=== PATIENT | female | born 1985 | race African-American/Black ===

== ENCOUNTER 2017-10-30 13:17 | Emergency (ER) | payer OTHER, SELFPAY ==
[2017-10-30 13:20] VITALS: BP 117/74; PULSE 60; RESP 14; TEMP 37.2; O2SAT 100
--- NOTE | 2017-10-30 14:39 | ED.BACK ---
HPI - Back Pain/Injury <WALTER Rosario - Last Filed: 10/30/17 22:24> General Chief Complaint: Back Pain/Injury Stated Complaint: HURT LOWER BACK Time Seen by Provider: 10/30/17 14:39 Source: patient Mode of arrival: ambulatory Limitations: no limitations History of Present Illness HPI Narrative: Healthy 32-year-old female here for complaint of having pain into the right side of her lower back that radiates down into her lower leg. She states the pain started earlier today when she was at work and she was lifting a box with approximately 5 lb when the pain started. She denies any direct trauma to the lower back. She denies any loss of bladder or bowel control. She is ambulatory into the emergency room. She reports increased pain with movement of the lower back and palpation to the area. Rest in the area helps relieve some of the symptoms. MD Complaint: back pain Related Data Home Medications Medication Instructions Recorded Confirmed norgestimate-ethinyl estradiol 1 tab PO QDAY #0 02/03/17 [Ortho Tri-Cyclen LO (28)] Previous Rx's Medication Instructions Recorded omeprazole magnesium [Prilosec OTC] 20 mg PO QDAY #30 03/27/17 cyclobenzaprine 10 mg PO TID PRN #15 tab 10/30/17 prednisone 40 mg PO DAILY #6 tab 10/30/17 Allergies Allergy/AdvReac Type Severity Reaction Status Date / Time No Known Drug Allergies Allergy Verified 10/30/17 15:40 Review of Systems <WALTER Rosario - Last Filed: 10/30/17 22:24> Constitutional Denies chills, Denies fever(s), Denies lethargy and Denies weakness Eyes Denies change in vision, Denies eye discharge, Denies irritation and Denies loss of vision ENT Ears, Nose, Mouth, and Throat: Denies change in voice, Denies neck pain and Denies sore throat Cardiovascular Denies chest pain, Denies irregular heart rhythm, Denies lightheadedness, Denies palpitations, Denies dyspnea, Denies dyspnea on exertion and Denies orthopnea Respiratory Denies cough, Denies dyspnea, Denies dyspnea on exertion and Denies wheezing Gastrointestinal Gastrointestinal: Denies abdominal pain, Denies change in bowel habits, Denies diarrhea, Denies nausea and Denies vomiting Genitourinary Denies hematuria, Denies flank pain, Denies urinary incontinence and Denies urinary urgency Musculoskeletal Reports back pain and Denies neck pain Integumentary/Breasts Denies pruritus, Denies erythema, Denies rash and Denies wounds Neurologic Denies confusion, Denies loss of vision and Denies weakness Psychiatric Denies anxiety, Denies confusion, Denies depression, Denies homicidal ideation and Denies suicidal ideation Endocrine Denies palpitations Hematologic/Lymphatic Denies easy bruising Allergic/Immunologic Denies wheezing Exam <WALTER Rosario - Last Filed: 10/30/17 22:24> Initial Vital Signs Initial Vital Signs: Vital Signs Temperature 99.0 F 10/30/17 13:20 Pulse Rate 60 10/30/17 13:20 Respiratory Rate 14 10/30/17 13:20 Blood Pressure 117/74 10/30/17 13:20 Pulse Oximetry 100 10/30/17 13:20 Const General: cooperative and well developed Nutritional Appearance: well nourished Orientation: alert, awake, oriented x3 and not confused [facility] Mouth: oral mucosae normal and moist mucous membranes Eyes Conjunctivae: conjunctivae normal Sclera: sclerae normal Pupils: PERRL EOM: EOM intact bilaterally Resp Effort & Inspection: normal respiratory effort, able to speak in complete sentences, no respiratory distress and no use of accessory muscles Auscultation: clear to auscultation bilaterally, no rales, no rhonchi and no wheezes Cardio Rate: regular rate Rhythm: regular rhythm Heart Sounds: no click, no gallops, no murmurs and no rubs Back/Spine/Pelvis Thoracic/Lumbar Spine: paraspinal tenderness, No lumbar spinal tenderness and straight leg raise positive Other: Tenderness to the paraspinous of the lumbar spine no midline tenderness. Tenderness radiates into the right buttocks and right thigh. Distal sensation is intact. Distal range of motion is intact. Skin General: no rashes or lesions noted, No jaundice and No petechiae Neuro General: alert, oriented x3, gait normal and no focal motor deficits Speech: speech normal <Aneudy Mckeon DO - Last Filed: 11/01/17 11:02> Initial Vital Signs Initial Vital Signs: Vital Signs Temperature 99.0 F 10/30/17 13:20 Pulse Rate 60 10/30/17 13:20 Respiratory Rate 14 10/30/17 13:20 Blood Pressure 117/74 10/30/17 13:20 Pulse Oximetry 100 10/30/17 13:20 Course <WALTER Rosario - Last Filed: 10/30/17 22:24> Orders Ordered: Discontinued Medications Ceftriaxone Sodium/Dextrose (Rocephin) 2 gm in 50 mls @ 100 mls/hr IV NOW ONE Stop: 10/30/17 16:07 Last Admin: 10/30/17 16:00 Dose: Vital Signs - 8 hr 10/30/17 16:07 Temperature 98.0 F Pulse Rate 62 Respiratory Rate 16 Blood Pressure [Left Wrist] 138/82 H Pulse Oximetry 100 <Aneudy Mckeon DO - Last Filed: 11/01/17 11:02> Orders Ordered: Discontinued Medications Ceftriaxone Sodium/Dextrose (Rocephin) 2 gm in 50 mls @ 100 mls/hr IV NOW ONE Stop: 10/30/17 16:07 Last Admin: 10/30/17 16:00 Dose: Vital Signs - 8 hr 10/30/17 16:07 Temperature 98.0 F Pulse Rate 62 Respiratory Rate 16 Blood Pressure [Left Wrist] 138/82 H Pulse Oximetry 100 MDM - Back Pain/Injury <WALTER Rosario - Last Filed: 10/30/17 22:24> [facility] Narrative Medical decision making narrative: Signs and symptoms presents as lumbar strain with sciatica. She is placed on cyclobenzaprine and to help with muscle spasm. [id number] ibuprofen for discomfort and anti-inflammatory effects. She is also prescribed a short course of prednisone also for anti-inflammatory effect. Follow up with primary care provider later this week for re-evaluation. Rest area. Gentle range of motion the painful area help keep also fluids. For any worsening symptoms return to the emergency room. Discharge Plan Departure Patient Disposition: Home, Self-Care Clinical Impression: Strain of lumbar region Discharge Date/Time: 10/30/17 16:31 Interventions: ED Discharge Assessment Last Done: 10/30/17 16:30 Instructions: DI for Low Back Pain Activity Restrictions/Additional Instructions: Signs and symptoms presents as a lower back strain with sciatica. Use [id number] ibuprofen as needed for any discomfort. You are prescribed a muscle relaxer to help with muscle spasm use as directed. No driving while the muscle x-ray is a can make you drowsy. You also prescribed a short course of prednisone to help with inflammation use as directed. Follow up with primary care provider later this week for re-evaluation. Rest area. Gentle range of motion the painful area help keep also fluids. For any worsening symptoms return to the emergency room. Prescriptions: New cyclobenzaprine 10 mg tablet 10 mg PO TID PRN (Reason: muscle spasm) Qty: 15 RF: 0 prednisone 20 mg tablet 40 mg PO DAILY Qty: 6 RF: 0 No Action norgestimate-ethinyl estradiol [Ortho Tri-Cyclen LO (28)] 1 EACH tablet 1 tab PO QDAY Qty: 0 RF: 0 omeprazole magnesium [Prilosec OTC] 20 MG tablet,delayed release (DR/EC) 20 mg PO QDAY Qty: 30 RF: 0 Referrals: [facility] [Provider Group] Stand Alone Forms: Work/School Restrictions <Aneudy Mckeon DO - Last Filed: 11/01/17 11:02> Cosign ED Attending Astrid Attestation: I was immediately available in the department for consultation. Documentation has been reviewed. I agree with assessment and plan.
[2017-10-30 16:07] VITALS: BP 138/82; PULSE 62; RESP 16; TEMP 36.7; O2SAT 100
== END 2017-10-30 16:31 | disposition home or self-care (01) ==
PROVIDERS: Emergency Provider Nurse Practitioner Family
DX: M54.9 Dorsalgia, unspecified (principal)
CPT/HCPCS: 99282

== ENCOUNTER 2017-12-29 11:04 | Emergency (ER) | payer OTHER, SELFPAY ==
[2017-12-29 11:19] VITALS: BP 133/62; PULSE 80; RESP 14; TEMP 36.7; O2SAT 98; BMI 23.0
--- NOTE | 2017-12-29 12:21 | ED.SKABFB ---
HPI - Skin/Abscess/Foreign Bdy General Chief complaint: Skin/Abscess/Foreign Body Stated complaint: R SIDE LUMP UNDER ARM, INFECTED Time Seen by Provider: 12/29/17 12:05 Source: patient and family Mode of arrival: ambulatory Limitations: no limitations History of Present Illness HPI narrative: Patient presents with chief complaint of draining lump from right underarm area. Denies any fevers, nausea vomiting or diarrhea but does complain of fatigue. Does note that she was in the urgent care for concern of a breast lump on 12/15. states that she noted the right breast lump 2 days prior and that it went away 5 days after her visit. States that the lump in the right underarm area occurred shortly thereafter. States that it burst yesterday with discharge she has not done anything for it. She has not applied hot compresses taken ibuprofen and Tylenol. She denies history of diabetes, recent admission or history of MRSA. she denies current breast problems. Related Data Home Medications Medication Instructions Recorded Confirmed multivitamin 1 tab PO DAILY 12/29/17 12/29/17 Previous Rx's Medication Instructions Recorded cephalexin 500 mg PO TID #30 cap 12/29/17 Allergies Allergy/AdvReac Type Severity Reaction Status Date / Time No Known Drug Allergies Allergy Verified 12/29/17 11:23 Review of Systems Review of Systems GENERAL: Denies chills, fatigue, malaise, fever, sweats. HEENT: Denies sinus pain, ear pain, sore throat, difficulty swallowing, dizziness. RESPIRATORY: Denies dyspnea, cough, wheezing, hemoptysis, sputum. CARDIOVASCULAR: Denies chest pain, palpitations, orthopnea, edema, GASTROINTESTINAL: Denies nausea, vomiting, abdominal pain, diarrhea, constipation, melena. : Denies dysuria, frequency, incontinence, hematuria, urinary retention. MUSCULOSKELETAL: denies weakness, joint pain, or bony pain SKIN: See HPI NEUROLOGIC: Denies weakness, headache, numbness, change in speech, confusion, seizures, incoordination. PSYCHIATRIC: No concerning psychosocial issues. 12 point review of systems is negative except for those stated above [facility] Surgical History History of delivery (Acute) History of left oophorectomy (Acute) Social History Smoking Status: Former smoker Exam Narrative Exam Narrative: GENERAL: This is a well-nourished, well-developed patient, No acute distress HEAD: Atraumatic. Normocephalic. No temporal or scalp tenderness. EYES: Pupils equal round and reactive. Extraocular motions intact. No scleral icterus. No injection or drainage. ENT: Nose without bleeding, purulent drainage or septal hematoma. Throat without erythema, tonsillar hypertrophy or exudate. Uvula midline. Airway patent. NECK: Trachea midline. No JVD or lymphadenopathy. Supple, nontender, no meningeal signs. CARDIOVASCULAR: Regular rate and rhythm without murmurs, gallops, or rubs. RESPIRATORY: Clear to auscultation. Breath sounds equal bilaterally. No wheezes, rales, or rhonchi. GASTROINTESTINAL: Abdomen soft, non-tender, nondistended. No hepato-splenomegaly, or palpable masses. No guarding. EXTREMITIES: No clubbing, cyanosis, or edema. No joint tenderness, effusion, or edema noted. BACK: Nontender without deformity or crepitance. No flank tenderness. NEURO: AOx3. SKIN: 0.5 x 1 cm solitary lymph node right axilla. No erythema noted. Slight purulent drainage noted. Initial Vital Signs Initial Vital Signs: Vital Signs Temperature 98.1 F 12/29/17 11:19 Pulse Rate 80 12/29/17 11:19 Respiratory Rate 14 12/29/17 11:19 Blood Pressure 133/62 12/29/17 11:19 Pulse Oximetry 98 12/29/17 11:19 Course Orders Ordered: ED Orders 12/29/17 12:28 Wound Culture and Gram Stain Stat Vital Signs - 8 hr 12/29/17 11:19 Temperature 98.1 F Pulse Rate 80 Respiratory Rate 14 Blood Pressure 133/62 Pulse Oximetry 98 MDM - Skin/Abscess/Foreign Bdy Differential Diagnosis Likely abscess of skin or subcutaneous tissue MDM Narrative Medical decision making narrative: Patient presents with chief complaint of draining abscess. She is nontoxic and hemodynamically stable. I obtained a wound culture. Given that is already draining and small dimensions, I will refrain from incision and drainage at this point time. I did start her on Keflex. I also discussed at length that she is to follow up with primary care provider given her previous breast complaints that she might require imaging. I also discussed that lymph nodes in the axilla Can be related to breast tissue. discussed return precautions of fever, inability keep down fluids, or severe illness. Patient questions or concerns upon discharge. Discharge Plan Departure Patient Disposition: Home Clinical Impression: Abscess of skin or subcutaneous tissue Discharge Date/Time: 12/29/17 12:40 Interventions: ED Discharge Assessment Last Done: 12/29/17 12:39 Instructions: DI for Skin Abscess Activity Restrictions/Additional Instructions: Given that your abscesses is small and already draining, I do not need to cut into it today. I am starting on an antibiotic. Please use warm compresses several times a day to help facilitate drainage. Please follow-up with primary care regarding your previous breast lump. Please monitor for fever, vomiting, diarrhea. Please be re-evaluated if any of these occur. We are sending out a wound culture of the drainage from your abscess. Prescriptions: New cephalexin 500 mg capsule 500 mg PO TID Qty: 30 RF: 0 No Action multivitamin Capsule 1 tab PO DAILY RF: 0
--- NOTE | 2017-12-29 12:29 | ED_ITS ---
HPI - Skin/Abscess/Foreign Bdy General Chief complaint: Skin/Abscess/Foreign Body Stated complaint: R SIDE LUMP UNDER ARM, INFECTED Time Seen by Provider: 12/29/17 12:05 Source: patient and family Mode of arrival: ambulatory Limitations: no limitations History of Present Illness HPI narrative: Patient presents with chief complaint of draining lump from right underarm area. Denies any fevers, nausea vomiting or diarrhea but does complain of fatigue. Does note that she was in the urgent care for concern of a breast lump on 12/15. states that she noted the right breast lump 2 days prior and that it went away 5 days after her visit. States that the lump in the right underarm area occurred shortly thereafter. States that it burst yesterday with discharge she has not done anything for it. She has not applied hot compresses taken ibuprofen and Tylenol. She denies history of diabetes, recent admission or history of MRSA. she denies current breast problems. Related Data Home Medications Medication Instructions Recorded Confirmed multivitamin 1 tab PO DAILY 12/29/17 12/29/17 Previous Rx's Medication Instructions Recorded cephalexin 500 mg PO TID #30 cap 12/29/17 Allergies Allergy/AdvReac Type Severity Reaction Status Date / Time No Known Drug Allergies Allergy Verified 12/29/17 11:23 Review of Systems Review of Systems GENERAL: Denies chills, fatigue, malaise, fever, sweats. HEENT: Denies sinus pain, ear pain, sore throat, difficulty swallowing, dizziness. RESPIRATORY: Denies dyspnea, cough, wheezing, hemoptysis, sputum. CARDIOVASCULAR: Denies chest pain, palpitations, orthopnea, edema, GASTROINTESTINAL: Denies nausea, vomiting, abdominal pain, diarrhea, constipation, melena. : Denies dysuria, frequency, incontinence, hematuria, urinary retention. MUSCULOSKELETAL: denies weakness, joint pain, or bony pain SKIN: See HPI NEUROLOGIC: Denies weakness, headache, numbness, change in speech, confusion, seizures, incoordination. PSYCHIATRIC: No concerning psychosocial issues. 12 point review of systems is negative except for those stated above [facility] Surgical History History of delivery (Acute) History of left oophorectomy (Acute) Social History Smoking Status: Former smoker Exam Narrative Exam Narrative: GENERAL: This is a well-nourished, well-developed patient, No acute distress HEAD: Atraumatic. Normocephalic. No temporal or scalp tenderness. EYES: Pupils equal round and reactive. Extraocular motions intact. No scleral icterus. No injection or drainage. ENT: Nose without bleeding, purulent drainage or septal hematoma. Throat without erythema, tonsillar hypertrophy or exudate. Uvula midline. Airway patent. NECK: Trachea midline. No JVD or lymphadenopathy. Supple, nontender, no meningeal signs. CARDIOVASCULAR: Regular rate and rhythm without murmurs, gallops, or rubs. RESPIRATORY: Clear to auscultation. Breath sounds equal bilaterally. No wheezes , rales, or rhonchi. GASTROINTESTINAL: Abdomen soft, non-tender, nondistended. No hepato-splenomegaly , or palpable masses. No guarding. EXTREMITIES: No clubbing, cyanosis, or edema. No joint tenderness, effusion, or edema noted. BACK: Nontender without deformity or crepitance. No flank tenderness. NEURO: AOx3. SKIN: 0.5 x 1 cm solitary lymph node right axilla. No erythema noted. Slight purulent drainage noted. Initial Vital Signs Initial Vital Signs: Vital Signs Temperature 98.1 F 12/29/17 11:19 Pulse Rate 80 12/29/17 11:19 Respiratory Rate 14 12/29/17 11:19 Blood Pressure 133/62 12/29/17 11:19 Pulse Oximetry 98 12/29/17 11:19 Course Orders Ordered: ED Orders 12/29/17 12:28 Wound Culture and Gram Stain Stat Vital Signs - 8 hr 12/29/17 11:19 Temperature 98.1 F Pulse Rate 80 Respiratory Rate 14 Blood Pressure 133/62 Pulse Oximetry 98 MDM - Skin/Abscess/Foreign Bdy Differential Diagnosis Likely abscess of skin or subcutaneous tissue MDM Narrative Medical decision making narrative: Patient presents with chief complaint of draining abscess. She is nontoxic and hemodynamically stable. I obtained a wound culture. Given that is already draining and small dimensions, I will refrain from incision and drainage at this point time. I did start her on Keflex. I also discussed at length that she is to follow up with primary care provider given her previous breast complaints that she might require imaging. I also discussed that lymph nodes in the axilla Can be related to breast tissue. discussed return precautions of fever, inability keep down fluids, or severe illness. Patient questions or concerns upon discharge. Discharge Plan Departure Patient Disposition: Home Clinical Impression: Abscess of skin or subcutaneous tissue Discharge Date/Time: 12/29/17 12:40 Interventions: ED Discharge Assessment Last Done: 12/29/17 12:39 Instructions: DI for Skin Abscess Activity Restrictions/Additional Instructions: Given that your abscesses is small and already draining, I do not need to cut into it today. I am starting on an antibiotic. Please use warm compresses several times a day to help facilitate drainage. Please follow-up with primary care regarding your previous breast lump. Please monitor for fever, vomiting , diarrhea. Please be re-evaluated if any of these occur. We are sending out a wound culture of the drainage from your abscess. Prescriptions: New cephalexin 500 mg capsule 500 mg PO TID Qty: 30 RF: 0 No Action multivitamin Capsule 1 tab PO DAILY RF: 0
== END 2017-12-29 12:40 | disposition home or self-care (01) ==
PROVIDERS: Emergency Provider Nurse Practitioner Family
DX: L02.411 Cutaneous abscess of right axilla (principal)
CPT/HCPCS: 87070; 87077; 87147; 87186; 87205; 99282; 99283

== ENCOUNTER 2018-03-06 12:28 | Emergency (ER) | payer OTHER, SELFPAY ==
[2018-03-06 12:33] VITALS: BP 134/72; PULSE 70; RESP 18; TEMP 36.8; O2SAT 100
--- NOTE | 2018-03-06 14:38 | DI.RAD.S_ITS ---
PROCEDURE: XR FINGER LT MIN 2V INDICATIONS: injury TECHNIQUE: AP hand, 2 views of the left finger(s) acquired. COMPARISON: None. FINDINGS: Bones: No fractures or dislocations. No suspicious bony lesions. Soft tissues: No suspicious soft tissue calcifications. IMPRESSION: No fracture. If the patient's symptoms do not improve recommend followup radiographs in 10 days to assess for healing sclerosis/occult injury. Dictated by: Jan Huff M.D. on 03/06/2018 at 15:22 Approved by: Jan Huff M.D. on 03/06/2018 at 15:24
--- NOTE | 2018-03-06 14:53 | ED.UPPEXIN ---
HPI - Extremity Injury (Upper) <Francisca Arriaga PA-C - Last Filed: 03/06/18 18:41> General Chief Complaint: Extremity Injury, Upper Stated Complaint: Hurt L thumb at work Time Seen by Provider: 03/06/18 14:43 Source: patient Mode of arrival: ambulatory Limitations: no limitations History of Present Illness HPI narrative: This healthy 32-year-old female injured her left thumb earlier today. She is right-handed. She states that she was pushing a cage and it hit something in the back, bounced back against her thumb and hyperextended it. She indicates that this was at the MCP joint. She states that she heard kind of a crunching sound. She states that she had some pain but tried to continue working and pain has persisted. She states that she can't bend it all the way, which she feels like is a combination of pain and stiffness or weakness. She denies paresthesia. She denies any other injury. Related Data Home Medications Medication Instructions Recorded Confirmed multivitamin 1 tab PO DAILY 12/29/17 03/06/18 Allergies Allergy/AdvReac Type Severity Reaction Status Date / Time No Known Drug Allergies Allergy Verified 12/29/17 11:23 Review of Systems <Francisca Arriaga PA-C - Last Filed: 03/06/18 18:41> Review of Systems All systems reviewed & are unremarkable except as noted in HPI and below Exam <Francisca Arriaga PA-C - Last Filed: 03/06/18 18:41> Narrative Exam Narrative: GENERAL APPEARANCE: Patient sitting comfortably, in no distress. LUNGS: Clear to auscultation bilaterally. HEART: Rate and rhythm regular without murmur, normal S1 and S2, no S3 or S4. MUSCULOSKELETAL: Left thumb there is no effusion. She is tender at the MCP joint, no tenderness elsewhere over the left thumb, fingers, hand or wrist. She has full aROM of all joints except for the thumb, where she has reduced flexion/opposition at the MCP joint with tenderness. Strength appears intact against resistance in all tamayo NEUROVASCULAR: Left hand fingers are warm and pink, radial and ulnar pulses intact, sensation grossly intact Initial Vital Signs Initial Vital Signs: Vital Signs Temperature 98.3 F 03/06/18 12:33 Pulse Rate 70 03/06/18 12:33 Respiratory Rate 18 03/06/18 12:33 Blood Pressure 134/72 03/06/18 12:33 Pulse Oximetry 100 03/06/18 12:33 <DO Sara Dunham Last Filed: 03/06/18 19:05> Initial Vital Signs Initial Vital Signs: Vital Signs Temperature 98.3 F 03/06/18 12:33 Pulse Rate 70 03/06/18 12:33 Respiratory Rate 18 03/06/18 12:33 Blood Pressure 134/72 03/06/18 12:33 Pulse Oximetry 100 03/06/18 12:33 Course <Francisca Arriaga PA-C - Last Filed: 03/06/18 18:41> Orders Ordered: ED Orders 03/06/18 14:38 XR finger LT min 2V Stat Discontinued Medications Ibuprofen (Advil) 800 mg PO NOW ONE Stop: 03/06/18 15:02 Last Admin: 03/06/18 15:11 Dose: 800 mg Vital Signs - 8 hr 03/06/18 12:33 03/06/18 16:02 Temperature 98.3 F Pulse Rate 70 57 L Respiratory Rate 18 16 Blood Pressure 134/72 Blood Pressure [Right Arm] 130/74 Pulse Oximetry 100 100 <DO Sara Dunham Last Filed: 03/06/18 19:05> Orders Ordered: ED Orders 03/06/18 14:38 XR finger LT min 2V Stat Discontinued Medications Ibuprofen (Advil) 800 mg PO NOW ONE Stop: 03/06/18 15:02 Last Admin: 03/06/18 15:11 Dose: 800 mg Vital Signs - 8 hr 03/06/18 12:33 03/06/18 16:02 Temperature 98.3 F Pulse Rate 70 57 L Respiratory Rate 18 16 Blood Pressure 134/72 Blood Pressure [Right Arm] 130/74 Pulse Oximetry 100 100 MDM - Extremity Injury (Upper) <YVROSE Linares Last Filed: 03/06/18 18:41> Imaging Data thumb: Radiologist's impression: XRay Report Signed Patient: Roxana Mir MR#: [id number] : 1985 Acct:[id number] Age/Sex: 32 / F Date of Service: 03/06/18 Loc: ED Accession Number: [id number] Procedure: XR finger LT min 2V Ordering Provider: Kaylin Garay D.O. PROCEDURE: XR FINGER LT MIN 2V INDICATIONS: injury TECHNIQUE: AP hand, 2 views of the left finger(s) acquired. COMPARISON: None. FINDINGS: Bones: No fractures or dislocations. No suspicious bony lesions. Soft tissues: No suspicious soft tissue calcifications. IMPRESSION: No fracture. If the patient's symptoms do not improve recommend followup radiographs in 10 days to assess for healing sclerosis/occult injury. Dictated by: Jan Huff M.D. on 03/06/2018 at 15:22 Approved by: Jan Huff M.D. on 03/06/2018 at 15:24 Discharge Plan Departure Patient Disposition: Home Clinical Impression: Left thumb sprain Discharge Date/Time: 03/06/18 16:23 Interventions: ED Discharge Assessment Last Done: 03/06/18 16:22 Instructions: DI for Finger Sprain Activity Restrictions/Additional Instructions: Please keep your thumb in the splint at all times (10/10) for protection and so that the strained tissues can rest and heal. Take ibuprofen every 8 hr. There was no fracture seen on her x-ray today, and your strength seems to be intact but it is difficult to fully assess your range of motion due to the pain. Please call Orthopedics today and let them know you were seen in the emergency room and advised to follow up for recheck on this as we want to make sure your range of motion and strength are normal. Return if you have any acutely worsening symptoms. You can work as long as you wear the splint to avoid stress on your thumb. Prescriptions: No Action multivitamin Capsule 1 tab PO DAILY RF: 0 Referrals: Thien Dye MD [Physician] - Stand Alone Forms: Work Release Note <Kaylin Garay DO - Last Filed: 03/06/18 19:05> Cosign ED Attending Chuyature Attestation: I was immediately available in the department for consultation. Documentation has been reviewed. I agree with assessment and plan.
[2018-03-06] MEDS: IBUPROFEN 400 MG TABLET 800 MG PO (15:11)
[2018-03-06 16:02] VITALS: BP 130/74; PULSE 57; RESP 16; O2SAT 100
== END 2018-03-06 16:23 | disposition home or self-care (01) ==
PROVIDERS: Emergency Provider Internal Medicine
DX: S63.602A Unspecified sprain of left thumb, initial encounter (principal); W23.0XXA Caught, crushed, jammed, or pinched between moving objects, initial encounter
CPT/HCPCS: 29280; 73140; 99283

== ENCOUNTER → 2018-03-29 09:34 | Outpatient (CLI) | payer OTHER, SELFPAY ==
[2018-03-29 10:00] LABS: Add Manual Diff / Slide Review NO; Eosinophils Percent Auto 5.8 % (2-4); Hematocrit 35.9 % (36-46); Hemoglobin 12.2 g/dL (12.0-16.0); Lymphocytes Percent Auto 47.9 % (25-40); Mean Corpuscular Hemoglobin 30.5 PG (26-34); Mean Corpuscular Volume 89.7 fL (80-100); Monocytes Percent Auto 11.3 % (3-14); Neutrophils Absolute Auto 1600 /uL (1500-7000); Platelet Count 242 X10^3/uL (150-400); Red Blood Cell Count 4.01 X10^6/uL (4.0-5.2); Red Cell Distribution Width 12.8 % (11.6-14.8); White Blood Cell Count 4.7 X10^3/uL (4.5-11.0)
[2018-03-29 10:07] LABS: Alanine Aminotransferase 26 IU/L (9-52); Albumin 4.1 g/dL (3.5-5.0); Albumin Globulin Ratio 1.3 (1.0-2.8); Alkaline Phosphatase 48 U/L (38-126); Aspartate Aminotransferase 18 IU/L (14-36); BUN Creatinine Ratio 17.1 (6-22); Bilirubin Total 0.5 mg/dL (0.2-1.3); Blood Urea Nitrogen 12 mg/dL (7-17); Calcium 9.5 mg/dL (8.4-10.2); Carbon Dioxide 28 mmol/L (22-32); Chloride 104 mmol/L (98-107); Cholesterol 181 mg/dL (140-199); Estimated Glomerular Filt Rate > 60.0 mL/min (>60); Globulin 3.1 g/dL (1.7-4.1); Glucose 86 mg/dL (70-100); HDL Cholesterol 62 mg/dL (40-60); HEMOLYSIS < 15 (0-50); LDL Cholesterol Calculated 107 mg/dL (<100); Sodium 140 mmol/L (137-145); Total Protein 7.2 g/dL (6.3-8.2); Triglycerides 60 mg/dL (35-150)
[2018-03-29 10:33] LABS: HEMOLYSIS < 15 (0-50); Iron 95 ug/dL (37-170)
[2018-03-29 10:43] LABS: Percent Iron Saturation 39 % (15-50); Total Iron Binding Capacity 241 ug/dL (265-497); Transferrin 191 mg/dL (206-381)
[2018-03-29 10:51] LABS: Appearance Urine UA CLEAR; Bilirubin Urine UA NEGATIVE (NEGATIVE); Color Urine UA YELLOW; Glucose Urine UA NEGATIVE (Negative); Ketones Urine UA NEGATIVE (NEGATIVE); Leukocyte Esterase Urine UA NEGATIVE (NEGATIVE); Nitrite Urine UA NEGATIVE (Negative); Occult Blood Urine UA NEGATIVE (Negative); Protein Urine UA NEGATIVE (Negative); Urobilinogen Urine UA 0.2 E.U./dL (0.2); pH Urine UA 7.5 (4.5-8.0)
[2018-03-29 11:04] LABS: Thyroid Stimulating Hormone 0.49 uIU/mL (0.47-4.68)
[2018-04-02 21:28] LABS: Hematocrit 35.9 % (35.0-45.0); MCV 92.8 fL (80.0-100.0); RBC Total Count 3.87 Million/uL (3.80-5.10); RDW 12.6 % (11.0-15.0)
== END ==
PROVIDERS: PCP Family Medicine; Visit Provider Family Medicine
DX: N93.8 Other specified abnormal uterine and vaginal bleeding (principal); Z13.220 Encounter for screening for lipoid disorders; Z13.29 Encounter for screening for other suspected endocrine disorder; Z86.2 Personal history of diseases of the blood and blood-forming organs and certain disorders involving the immune mechanism
CPT/HCPCS: 36415; 80053; 80061; 81003; 83021; 83540; 83550; 84443; 85014; 85018; 85025; 85041

== ENCOUNTER → 2018-04-10 11:39 | Outpatient (CLI) | payer OTHER, SELFPAY ==
--- NOTE | 2018-04-10 11:40 | DI.US.S_ITS ---
PROCEDURE: US PELVIC COMPLETE INDICATIONS: DYSFUNCTIONAL UTERINE BLEEDING TECHNIQUE: Real-time scanning was performed of the pelvic organs, with image documentation. Additional endovaginal scanning was necessary due to incomplete visualization of the adnexal and endometrial structures by transabdominal scanning. COMPARISON: None. FINDINGS: Transabdominal scanning: Limited scanning through the kidneys shows no hydronephrosis. No pathologic free abdominal or pelvic fluid. Endovaginal scanning: Uterus: Uterus is normal in size at 12.7 x 5.8 x 7.4 cm. The endometrium is not well defined and there is mild increase endometrial vascularity. Ovaries: Simple cyst associated with the right ovary measuring 4.5 x 2.3 x 3.7 cm. Left ovary is normal. IMPRESSION: 1. Ill-defined endometrial complex with increased vascularity. Adenomyosis cannot be excluded. If indicated pre and post contrast gynecologic MRI could be performed for further assessment. 2. Simple cyst involving the right ovary measuring up to 4.5 cm. Short-term followup pelvic ultrasound recommended. Dictated by: Filiberto MONREAL Interpreted: Munir Padilla MD on 04/10/2018 at 14:13 Approved by: Munir Padilla M.D. on 04/10/2018 at 17:09
== END ==
PROVIDERS: PCP Family Medicine; Visit Provider Family Medicine
DX: N93.8 Other specified abnormal uterine and vaginal bleeding (principal); N83.291 Other ovarian cyst, right side
CPT/HCPCS: 76830; 76856

== ENCOUNTER 2018-06-25 08:31 | Inpatient (IN) | payer OTHER, SELFPAY ==
[2018-06-13 08:29] VITALS: BMI 23.0
[2018-06-25] VITALS (14 sets, daily range): BP systolic 98–135; BP diastolic 58–82; PULSE 61–81; RESP 8–20; TEMP 36.2–36.7; O2SAT 95–100; BMI 22.3
--- NOTE | 2018-06-25 | PATH_ITS ---
[facility] Accession Number: [id number] . 01 Material submitted: . PART A: uterus - UTERUS PART B: appendix - APPENDIX . 02 Diagnosis: A. Uterus Without Cervix (Supracervical Hysterectomy) With Bilateral Fallopian Tubes: Adenomyosis, uterus. Focal endometriosis, right fallopian tube. Minimally proliferative endometrium, negative for atypia. . B. Appendix: No significant pathologic change. MRV/06/27/2018 . 02 Electronically signed: . Kyle Tejeda MD, Pathologist NPI- [id number] . 01 Gross description: . A. Received in formalin, labeled with the patient's name and uterus, is a 155 gram supracervical hysterectomy specimen measuring 5.8 cm anterior to posterior, 8.3 cm fundus to lower uterine segment, and 6.4 cm cornu to cornu. A 2.6 cm in length by 0.5 cm in diameter portion of bilateral fallopian tubes are present. The serosa is smooth. The endometrial canal measures 4.1 cm in length by 0.9 cm in width, and is covered with white-brown endometrium measuring 0.1 cm in thickness. No intramural or subserosal nodules are identified. Corporate Planning Manager sections are submitted as follows: A1-anterior lower uterine segment; A2-posterior lower uterine segment; A3-anterior endomyometrium; A4-posterior endomyometrium; A5-right fallopian tube; A6-left fallopian tube. B. Received in formalin, labeled with the patient's name and appendix, is a 5.1 cm in length by 0.6 cm in diameter intact foss-brown appendix. The attached foss-brown mesoappendix measures 4.0 x 1.6 x 0.5 cm. The serosa is smooth and no perforation is noted. Sectioning reveals a lumen measuring 0.3 cm in greatest dimension with foss-brown mucosa. No fecalith is identified within the lumen. The resection margin is inked black. Corporate Planning Manager sections are submitted as follows: B1-longitudinal section of tip, cross-section of proximal margin, and additional cross sections. (CHARITY:[id number]) /MRV . 02 Pathologist provided ICD-10: N80.0 . 02 CPT . 481973, 499189 Performed at: 01 [facility] [address] [address], [place], [place] [id number] MD Alvaro Elam MD Phone: [phone] Performed at: 02 [facility] [address] [place] [id number] MD Sarahi Wallace MD Phone: [phone]
[2018-06-25] MEDS: LACTATED RINGERS 1,000 ML 42 ML IV ×2 (08:43→12:56)
[2018-06-25] MEDS: CEFAZOLIN 2 GM/100 ML FROZ.PIGGY IV (11:39)
--- NOTE | 2018-06-25 12:22 | SUR.OPER ---
Lithotomy on padded OR bed. Eighty Four Pad Positioner under torso. Head on pillow, arms padded and tucked at sides. Legs secured in padded yellow fins stirrups.
[2018-06-25] MEDS: BUPIVACAINE 0.5% W/ EPI (PF) VIAL 30 ML INJ (12:57)
[2018-06-25] MEDS: ROPIVACAINE 0.2% PF 2 MG/ML 10ML AMP 20 ML INJ (13:03)
[2018-06-25] MEDS: SODIUM CHLORIDE 0.9% 9 ML, TRIAMCINOLONE 10 MG INJ ×2 (13:33→13:54)
[2018-06-25] MEDS: HYDROMORPHONE 2 MG INJ 0.5 MG IV ×4 (14:18→14:45)
--- NOTE | 2018-06-25 14:49 | SUR.PHASEI ---
Attempted to reach Dr. Palafox to discuss blood oozing from dressing. not available. Message left with Hedy.
--- NOTE | 2018-06-25 14:57 | SUR.PHASEI ---
No additional drainage noted to LLQ
--- NOTE | 2018-06-25 15:12 | PM.PREOP ---
Pre-operative Note Interval Note History & Physical reviewed/Exam performed by Physician: Yes Changes to H&P: No
--- NOTE | 2018-06-25 15:23 | SUR.PHASEI ---
Dr. Palafox shown oozing from [facility] jared mackenzie applied per Dr. Palafox, no need to change aquacel as long as upper border is cdi. Report called to Faye.
[2018-06-25] MEDS: METOCLOPRAMIDE 10 MG/2 ML INJ IV (15:50)
[2018-06-25] MEDS: LACTATED RINGERS 1,000 ML 100 ML IV (15:50)
--- NOTE | 2018-06-25 15:56 | SUR.PHASEI ---
Pt transferred to the floor. VS stable. Drsgs and pad checked with RN, unchanged. IV saline locked. Belongings bag with patient.
--- NOTE | 2018-06-25 17:03 | PM.OP.1 ---
Operative Date/Time/Diagnoses Date of procedure: 06/25/18 Time of procedure: 13:03 Pre-op diagnosis: Right lower quadrant adhesions Appendiceal fecalith Post-op diagnosis: same Procedure & Clinicians Procedure: Lysis of adhesions Appendectomy Surgeon: Debby Holloway [employer] Laboratory Technician: Enedina Palafox Anesthesia Type: General Operative Notes Findings: 1. Right lower quadrant adhesions involving the right colon and omentum. Affectively causing decreased diameter of the ascending colon 2. Appendiceal fecalith without gross evidence of appendicitis Closure Type: primary Specimen(s): other (Appendix) Estimated Blood Loss (mL): 5 Procedure in detail: Mrs. Mir is a pleasant 33-year-old lady who presented to the operating room today to undergo a supracervical hysterectomy. This was completed by Dr. Palafox and Dr. Mancilla. At the time the operation, it was noted that the patient had significant right lower quadrant adhesions. I was called into the operation to address this issue. At the time I entered the operating room, the patient was anesthetized on the operating room table. A Pfannenstiel incision remained open in the lower abdomen. Dr. Palaofx and I proceeded as follows. We began by examining the right pericolic gutter and right colon. It was noted that she had a few adhesions involving the omentum and the right lateral abdominal wall that effectively narrowed the diameter of the mid right colon. These were lysed under direct vision using Metzenbaum scissors. examination of the appendix revealed a fairly long fecalith in the center of the organ. Due to the presence of this fecalith, we elected to perform an appendectomy. This was done by dividing the mesoappendix using the LigaSure device. a 55 mm FRED stapling device was then used to liberate the appendix from its attachment to the cecum. The existing staple line was then oversewn with interrupted Vicryl suture. the wound was checked for hemostasis and irrigated with warm saline solution. At this time, my part and the procedure was concluded. I exited the room and Dr. Palafox completed the procedure. Please see Dr. Palafox operative report for information regarding all other portions of the operation. Complications: none Condition: stable Disposition: PACU Plan for aftercare: The patient will be admitted to the gynecology service for continued care and convalescence.
[2018-06-25] MEDS: KETOROLAC 30 MG/ML VIAL IV ×2 (18:42→23:30)
--- NOTE | 2018-06-25 19:08 | PC.ADMIT ---
Addendum entered by Sarahi Castaneda R.N. 06/25/18 21:20: checked on pt around 2044- pt reports feeling and doing much better, at bedside. will continue to monitor. Original Note: Addendum entered by Sarhai Castaneda R.N. 06/25/18 20:17: 3x minimal blood spots to moisés pad. not much more from when she arrived from PACU. changed. will continue to monitor. abd soft but tender. Original Note: Addendum entered by Sarahi Castaneda R.N. 06/25/18 20:14: 2010- pt called. stated she felt a very sharp pain to vaginal area then started sweating everywhere. and pt was very worried. vitals 86/50 hr 70, O2-99% on room air, denied sob. stated that when the pain came it took her breath away. laid head of bed down. pt bp normalized at 110/75. Pt hr 72. adjusted brown catheter and pt stated that she felt the sharp pain again. positioned catheter in a different spot. pt stated she felt much better. vss. given prn pain med and scheduled. will continue to monitor. at bedside. Original Note: Admission Note: 1529- arrived to unit. mild nausea. given prns. oriented to room and hospital procedures. given call hernandez. water, snacks. dinner up and pt tolerating. fluids started. many questions answered. pt having small amount of bloody drainage to left lower part of aquacel. able to absorb with gauze. top barrier intact. vss. at bedside. belongings and call light within reach. two small spots to lower end of dsg. 3x lap sites to perinaval. will continue to monitor. brown patent.
[2018-06-25] MEDS: DOCUSATE 250 MG CAPSULE PO (20:12)
[2018-06-25] MEDS: OXYCODONE/ACETAMINOPHEN 5/325 TABLET 2 TAB PO (20:12)
--- NOTE | 2018-06-25 23:54 | PC.NURSE ---
Addendum entered by Dannielle Stein R.N. 06/26/18 05:56: States she was able to sleep a solid 3 hours during this shift. Pain severity currently 4/10 and medicated with scheduled Toradol. Still not passing any flatus. BP remains low but is asymptomatic. Ambulated short distance in plata and back to room and now sitting up in chair. Given broth and tea per her request. 575cc UOP this shift. Original Note: Addendum entered by Dannielle Stein R.N. 06/26/18 00:24: States pain is now down to 3/10 but still wants 2 tabs of Percocet; medicated as requested. Original Note: Patient is alert and oriented. Breath sounds CTA with RA sat of 98%. HRR with low BP of 98/58; reported earlier near syncopal episode when gotten out of bed on evening shift. Denies nausea. BT very hypoactive; abdomen distended and tender. Denies flatus. Lap dressings are CDI. Aquacel dressing to low abdomen intact with spots of dark drainage noted. States pain is 6/10; medicated with scheduled Toradol and given warm blanket for comfort; due for Percocet at 0010. Is able to turn self in bed. Reports weakness when up earlier. Refusing SCD's. Indwelling catheter is patent. Fall risk score is moderate; patient calls for assistance appropriately and spouse rooming in.
[2018-06-26] MEDS: OXYCODONE/ACETAMINOPHEN 5/325 TABLET 2 TAB PO ×4 (00:22→21:49)
[2018-06-26] MEDS: LACTATED RINGERS 1,000 ML 100 ML IV (00:24)
[2018-06-26 03:49] VITALS: BP 98/54; PULSE 65; RESP 22; TEMP 36.6; O2SAT 99
[2018-06-26] MEDS: KETOROLAC 30 MG/ML VIAL IV ×4 (05:42→23:44)
[2018-06-26 06:27] LABS: Add Manual Diff / Slide Review NO; Basophils Absolute Auto 0 /uL (0-100); Basophils Percent Auto 0.2 % (0-2); Eosinophils Absolute Auto 0 /uL (0-450); Hematocrit 26.6 % (36-46); Hemoglobin 9.2 g/dL (12.0-16.0); Lymphocytes Absolute Auto 1500 /uL (1100-4500); Lymphocytes Percent Auto 12.6 % (25-40); Mean Corpuscular HGB Conc 34.7 % (30-36); Mean Corpuscular Hemoglobin 30.8 PG (26-34); Mean Corpuscular Volume 88.8 fL (80-100); Monocytes Absolute Auto 1000 /uL (0-900); Monocytes Percent Auto 8.6 % (3-14); Neutrophils Absolute Auto 9100 /uL (1500-7000); Neutrophils Percent Auto 78.6 % (50-75); Platelet Count 223 X10^3/uL (150-400); Red Cell Distribution Width 12.4 % (11.6-14.8); White Blood Cell Count 11.6 X10^3/uL (4.5-11.0)
[2018-06-26 07:30] VITALS: BP 107/49; PULSE 75; RESP 16; TEMP 37; O2SAT 100
[2018-06-26] MEDS: DOCUSATE 250 MG CAPSULE PO ×2 (08:00→19:48)
--- NOTE | 2018-06-26 08:17 | CM.DANOTE ---
DCP: Case received, EMR reviewed and checked on patient briefly, for she was resting. DCP template completed with information currently available. Patient is a 33 year old female who admitted yesterday morning to the care of the surgical team. PCP: Torie Bustillo. Payer: confirmed: [facility] Patient came to hospital originally for a Supracervical Hysterectomy. Patient had also been complaining of right quadrant pain. She was noted to have right lower quadrant adhesions involving the colon, where lysis of adhesions was performed. Surgeon was consulted, and she also had Appendectomy. Checked on patient, she had been resting, pleasant. She lives in [place] with her spouse, Kt. She is employed at [employer]. P: Patient should be able to go home when she is medically stable. Celeste Choe RN/Dietary Clerk
--- NOTE | 2018-06-26 11:05 | PC.NURSE ---
Day Shift- Abd lap sites X3, gauze and tegaderm dressing CDI. Aquacel horizontal dressing intact with 3 small spots of bloody shadowing. Ernestina-pad has small amount of bloody drainage. Urinary catheter removed at 1005 with out difficulty per Dr. Palafox order. Post removal expectations discussed. Measuring hat in toilet for when pt voids. Pain controlled with prn Percocet, last given at 0740 for 4-5/10 aching and bloating. Upon reassessment, pain 2/10. Now passing flatus, pt wants to ambulate in halls after lunch.
[2018-06-26] MEDS: SODIUM CHLORIDE 0.9% FLUSH 10 ML IV ×3 (11:35→23:45)
[2018-06-26 12:00] VITALS: BP 129/79; PULSE 88; RESP 16; TEMP 36.9; O2SAT 100
[2018-06-26 15:57] VITALS: BP 114/65; PULSE 88; RESP 19; TEMP 36.6; O2SAT 100
--- NOTE | 2018-06-26 18:42 | P.OP_ITS ---
Operative Date/Time/Diagnoses Date of procedure: 06/25/18 Time of procedure: 14:00 Pre-op diagnosis: Dysmenorrhea Menorrhagia Pelvic pain Post-op diagnosis: same Procedure: Procedures Operation Date: 06/25/18 11:15 Actual Procedures Side Surgeon xu DIALLO converted to open; lysis of adhesions; Scar revision Enedina Palafox MD s Open Appendectomy Debby Holloway MD Indications: Dysmenorrhea Menorrhagia Pelvic pain Surgeon: Enedina Palafox Well Treatment Offsider: Nelson Mancilla Anesthesia Type: General Operative Notes Findings: 8 week size uterus Small portions of proximal tubes connected to the uterus otherwise no tubes visible Normal ovaries bilaterally Omental to bladder and anterior uterine adhesions Right lower quadrant adhesions of colon to right adnexa and sidewall Dense Bladder to uterine adhesions Closure Type: primary Specimen(s): uterus Applied: catheter Estimated blood loss (mL): 200 Blood products transfused: none Procedure in detail: The patient was taken to the operating room where she was placed in the dorsal supine position. After adequate general endotracheal anesthesia was achieved, she was placed in the dorsal lithotomy position, and prepped and draped in the usual sterile fashion. a bivalve speculum was placed into the vagina and the anterior lip of the cervix grasped with a single-tooth tenaculum. The cervical os was sequentially dilated until the Zumi uterine manipulator could pass easily into the endometrial cavity. The single-tooth tenaculum was removed from the anterior lip of the cervix. The bivalve speculum was removed from the vagina. Attention was then turned to the abdomen where 6 cc of 0.5% Marcaine with epinephrine were injected in the umbilical fold. A 5 mm incision was made. The Veress needle was placed into the peritoneal cavity, and its placement confirmed by aspiration drop test. The abdominal cavity was insufflated with 2.8 L of CO2. The Veress needle was removed, and a 5 mm trocar was placed without difficulty. Initial inspection of the abdomen and pelvis revealed the findings noted above. 2 other incisions were made midway between the pubic symphysis and umbilicus with care to avoid the adhesions. 2 5 mm trocars were placed under direct visualization. the right cornua of the uterus with a small portion of tube a visible was grasped with an atraumatic grasper. Using the PlasmaKinetic with settings at 40 w the utero-ovarian vessels, round ligament, and broad ligament were cauterized and cut with the PlasmaKinetic. Due to dense bladder to uterine adhesions attention was then turned to the left side where the left cornua with small portion of tube was grasped with an atraumatic grasper. The utero-ovarian, round ligament, and broad ligament were cauterized and cut all the way down to the level of the uterine arteries. An attempt was made to take the bladder down off of lower uterine segment and cervix and there were dense adhesions. Omental to uterine adhesions were cauterized and cut with the PlasmaKinetic. Due to the dense adhesions of the bladder to the lower uterine segment, a decision was made to proceed with an open procedure. the instruments were removed from the abdomen. The CO2 was allowed to escape. An elliptical incision was made around the previous Pfannenstiel incision including the dense keloid scar. This was carried through to the underlying layer of fascia. The fascia was nicked in the midline and the incision extended bilaterally with the Joaquin scissors. The superior aspect of the fascial incision was grasped with the Shannan clamps, elevated, and the underlying rectus muscles were dissected off sharply and bluntly. Attention was then turned to the inferior aspect of this incision which in a similar fashion was grasped with the Shannan clamps, elevated and the underlying rectus muscles dissected off sharply and bluntly. The rectus muscles were in the midline. The peritoneum was identified, grasped between 2 hemostats, and entered sharply with the Metzenbaum scissors. This incision was extended superiorly and inferiorly with good visualization of the bladder. The O'Osmin O'Guo retractor was placed into the incision and the bowel packed away with moist lap sponges. Care was taken to avoid the bowel in the right lower quadrant. The uterus was grasped with a 4 tooth tenaculum. Using the Metzenbaum scissors the bladder was taken down off of the lower uterine segment and cervix and then with a moistened sponge stick. The uterine arteries were clamped, transected, and suture ligated bilaterally. the Zumi uterine manipulator was removed from the uterus. The uterus was amputated from the cervix using the Bovie. The endocervical canal was extensively cauterized with the PlasmaKinetic. The cervix was closed with a series of simple interrupted sutures using 0 Vicryl. Hemostasis was achieved. The pelvis was copiously irrigated with warm normal saline. There was no bleeding noted. An intraoperative consult was obtained with the general surgeon, Dr. Emily Holloway. She took down adhesions in the right lower quadrant including the colon. Upon examining the appendix, there was a fecalith present. A decision was made to proceed with an appendectomy. This is dictated as a separate report by Dr. Emily Holloway. The pelvis was again copiously irrigated with warm normal saline. There was no bleeding noted. the lap sponges were removed from the abdomen. The O'Osmin O'Guo retractor was removed from the abdomen. The peritoneum was closed with 2 0 Vicryl in a running fashion. The fascia was reapproximated with 0 Vicryl in a running fashion. Hemostasis was achieved in the subcutaneous layer using the Bovie and irrigated with warm normal saline. 5 simple interrupted sutures were placed in the subcutaneous layer to reapproximate. The skin was closed with 4 0 undyed Vicryl in a subcuticular fashion. a solution of 10 mg of Kenalog in 10 cc of normal saline was injected along the new incision with 1 milligram/centimeter of tissue. Also the other keloid scars in the area were injected with the same solution. The laparoscopy incisions were closed with 4 0 undyed Vicryl in a subcuticular fashion. Steri-Strips, 2 x 2, and op site were placed over the laparoscopy incisions. An Aquacel dressing was placed over the Pfannenstiel incision. Sponge, lap, and instrument counts were correct x2. The patient tolerated the procedure well, and was taken to PACU in stable condition. Complications: none Post-operative Condition: stable Disposition: PACU Plan for aftercare: To acute care after recovery
--- NOTE | 2018-06-26 18:44 | P.PN_ITS ---
Subjective Date Patient Seen: 06/26/18 Time Patient Seen: 18:42 Interval history: Patient is a 33-year-old postop day # 1 status post open supracervical hysterectomy, lysis of adhesions and appendectomy. The You catheter was removed this morning and she has been able to void without the catheter. She is tolerating a regular diet. No nausea or vomiting. Pain well controlled. She has ambulated without assistance. Exam Vital Signs (past 8 hours): - 06/26/18 12:00 06/26/18 15:57 Temperature 98.4 F 97.8 F Pulse Rate 88 88 Respiratory Rate 16 19 Blood Pressure 129/79 114/65 Pulse Oximetry 100 100 Oxygen Delivery Method Room Air Oxygen Flow Rate 0 Narrative Exam Narrative: Generally: Patient is sitting up in bed, no acute distress Lungs: Clear to auscultation bilaterally Cardiovascular: Regular rate and rhythm Abdomen: Soft, good bowel sounds Incisions: Clean dry and intact with either op site or Aquacel dressing Extremities: SCDs in place Objective Labs Result Diagrams: 06/26/18 06:10 Labs: Laboratory Results - last 24 hr 06/26/18 06:10 WBC 11.6 H RBC 3.00 L Hgb 9.2 L Hct 26.6 L MCV 88.8 MCH 30.8 MCHC 34.7 RDW 12.4 Plt Count 223 Neut % (Auto) 78.6 H Lymph % (Auto) 12.6 L [place] % (Auto) 8.6 Eos % (Auto) 0.0 L Baso % (Auto) 0.2 Neut # (Auto) 9100 H Lymph # (Auto) 1500 [place] # (Auto) 1000 H Eos # (Auto) 0 Baso # (Auto) 0 Assessment & Plan Post-op Postoperative Procedures Operation Date: 06/25/18 11:15 Actual Procedures Side Surgeon p LSCH converted to open; lysis of adhesions; Scar revision Enedina Palafox MD s Open Appendectomy Debby Holloway MD Postoperative day: 1 Postoperative status: doing well Postoperative status narrative: Postop day # 1 status post open supracervical hysterectomy, lysis of adhesions, and appendectomy, doing very well Postoperative plan: routine post-op care Postoperative plan narrative: Continue routine postop care Anticipate discharge 06/27/2018 Time Spent With Patient 15-24 minutes Quality VTE Deep Vein Thrombosis/Pulmonary Embolism Present on Admission: No
--- NOTE | 2018-06-26 22:05 | PC.NURSE ---
Addendum entered by Sarahi Castaneda R.N. 06/26/18 22:52: pt sl all shift. will continue to monitor. pt had been tolerating pain well, but moved a bit and got a sharp pain again. given pain meds per MAR. will continue to monitor. Original Note: jose a shift- pt did well this evening. Pt up with standby walked in hallway. ate dinner. took a shower and reported that she felt much better after this. Iv when flushed did sting a b it. Pt given pain meds per MAR. will continue to monitor pt for safety. did come in early evening and told pt she would likely go home after breakfast tomorrow.
--- NOTE | 2018-06-26 23:58 | PC.NURSE ---
Addendum entered by Dannielle Stein R.N. 06/27/18 05:58: Patient has slept most of shift. States pain is only 2/10 this morning and declines taking IV Toradol. Original Note: Patient is alert and oriented. Breath sounds CTA but diminished throughout; RA sat 100%. HRR. Denies nausea. BT present and is passing flatus; abdomen is soft. Voiding well after catheter removal; denies dysuria, frequency or urgency. Lap dressings/ Aquacel to abdomen intact with no new drainage noted. States pain is currently 4/10; medicated with scheduled Toradol. Able to turn self in bed. Out of bed with SBA; reports she uses walker when ambulating in plata. Refusing SCD's. Fall risk score is moderate; calling appropriately so alarm is not in use; verbalizes agreement to call for assist before getting out of bed. Spouse rooming in.
[2018-06-27] VITALS: BP 122/72; PULSE 78; RESP 16; TEMP 36.7; O2SAT 100
[2018-06-27 06:07] VITALS: BP 107/60; PULSE 79; RESP 16; TEMP 36.9; O2SAT 100
[2018-06-27 07:15] VITALS: BP 142/77; PULSE 85; RESP 16; TEMP 37; O2SAT 100
[2018-06-27] MEDS: DOCUSATE 250 MG CAPSULE PO (08:18)
[2018-06-27] MEDS: OXYCODONE/ACETAMINOPHEN 5/325 TABLET 2 TAB PO (08:18)
--- NOTE | 2018-06-27 09:33 | PC.NURSE ---
Addendum entered by Anny Newsome R.N. 06/27/18 10:02: Reviewed discharge summary packet with pt. Pt's Supa present to drive pt home. Pt had no voiced concerns. PIV removed. 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 Original Note: Day Shift- pt states is ready for home this morning. Dr. Palafox wrote discharge oders. Phoned Dr. Palafox's office to make follow up appointment for this coming Monday. Pt did c/o 2/10 aching to abd, 5/10 to mid chest radiating to both shoulders, states cannot take a deep breath. O2 sat 100%. HR 70-80s. Enc pt to ambulate in halls to relieve gas pain. Percocet prn given at 0820 1 tab with good effect. Pt ambulated in hallways with SBA by . Upon reassessment, pt stated her chest and radiating to shoulder pain was nearly gone. Stated feeling better. States has all belongings.
--- NOTE | 2018-06-27 20:06 | PM.DS.1 ---
History of Present Illness Date Patient Seen: 06/27/18 Time Patient Seen: 07:40 Chief complaint: *OPB* [id number] Narrative: Patient is a 33-year-old postop day # 2 status post open supracervical hysterectomy, appendectomy, and lysis of adhesions Pain is well tolerated with oral medications. She has been able to void without the catheter. She is tolerating a diet. She has showered and ambulated. Discharge Providers Date of admission: 06/25/18 08:31 Discharge Date: 06/27/18 Primary care physician: Torie Bustillo DO Consults: General surgery Discharge provider: Enedina Palafox MD Summary Discharge Diagnosis: Dysmenorrhea Menorrhagia Appendiceal fecalith Status post open supracervical hysterectomy, appendectomy, and lysis of adhesions Hospital Course: Patient was admitted on 06/25/2018 for a scheduled laparoscopic supracervical hysterectomy with bilateral salpingectomy. At the time of surgery she had just minimal tubes attached to the uterus. She had significant adhesions of the bladder to the lower uterine segment and cervix. The laparoscopic procedure was converted to open. She also had an appendectomy due to a fecalith palpated. She had significant lysis of adhesions. Her postoperative course was unremarkable and she is discharged home on postop day # 2. Status at Discharge Cognitive/behavioral status at discharge: oriented Functional status at discharge: independent ambulation Overall status at discharge: patient is progressing back to baseline Time Spent with Patient Less than 30 minutes Exam Vital Signs (past 8 hours): Oxygen Delivery Method Room Air Oxygen Flow Rate 0 Narrative Exam Narrative: Generally: Patient is sitting up in bed, no acute distress Lungs: Clear to auscultation bilaterally Cardiovascular: Regular rate and rhythm Abdomen: Soft, flat, good bowel sounds. Incisions: Clean dry and intact with op sites and Aquacel dressing Extremities: Negative Homans, no edema Objective Labs Result Diagrams: 06/26/18 06:10 Discharge Plan Discharge Plan Patient Disposition: Home Discharge comment: Call with fever, chills or redness or drainage around incisions or bleeding vaginally more than spotty to light Discharge Med Rec/Prescriptions Prescriptions: New oxycodone-acetaminophen [Percocet] 5-325 mg tablet 1 tab PO Q4-6H PRN (Reason: pain) Qty: 30 RF: 0 docusate sodium [Colace] 100 mg capsule 100 mg PO DAILY Qty: 20 RF: 0 ibuprofen 600 mg tablet 600 mg PO TID PRN (Reason: pain) Qty: 30 RF: 0 Continued multivitamin Capsule 1 tab PO DAILY RF: 0 Discontinued norgestimate-ethinyl estradiol [Ortho Tri-Cyclen (28)] 0.18/0.215/0.25 mg-35 mcg (28) tablet 1 tab PO DAILY Qty: 84 RF: 0 Follow up/Referrals: Enedina Palafox MD [Physician] - 07/02/18 2:15 pm (Aquacel dressing removal on 07/02/18 @ 2:[address] palafox [phone]) Provider Discharge Instructions Diet: Regular Activity: No heavy lifting Skin/Wound/Dressing Care Report to your healthcare provider any signs of infection, such as:: chills, fever, increased pain, unusual drainage and unusual redness Dressing: Remove outer plastic dressings and guaze today after a shower Visit Report/Discharge Packet Instructions: DI for an Appendectomy, DI for Hysterectomy, DI for Lysis of Adhesions, DI for Constipation, How to Prevent Falls, DI for Postoperative Pain Stand Alone Forms: Surgery Discharge Discharge Data Primary Care Provider: Torie Bustillo Attending Provider: Enedina Palafox Admit Date/Time: 06/25/18 08:31 Discharges patient from system. Discharge Date/Time: 06/27/18 10:02 Quality VTE Deep Vein Thrombosis/Pulmonary Embolism Present on Admission: No
--- NOTE | 2018-06-27 20:10 | P.DS_ITS ---
History of Present Illness Date Patient Seen: 06/27/18 Time Patient Seen: 07:40 Chief complaint: *OPB* [id number] Narrative: Patient is a 33-year-old postop day # 2 status post open [place] pracervical hysterectomy, appendectomy, and lysis of adhesions Pain is well tolerated with oral medications. She has been able to void without the catheter. She is tolerating a diet. She has showered and ambulated. Discharge Providers Date of admission: 06/25/18 08:31 Discharge Date: 06/27/18 Primary care physician: Torie Bustillo DO Consults: General surgery Discharge provider: Enedina Palafox MD Summary Discharge Diagnosis: Dysmenorrhea Menorrhagia Appendiceal fecalith Status post open supracervical hysterectomy, appendectomy, and lysis of adhesions Hospital Course: Patient was admitted on 06/25/2018 for a scheduled laparoscopic supracervical hysterectomy with bilateral salpingectomy. At the time of surgery she had just minimal tubes attached to the uterus. She had significant adhesions of the bladder to the lower uterine segment and cervix. The laparoscopic procedure was converted to open. She also had an appendectomy due to a fecalith palpated. She had significant lysis of adhesions. Her postoperative course was unremarkable and she is discharged home on postop day # 2. Status at Discharge Cognitive/behavioral status at discharge: oriented Functional status at discharge: independent ambulation Overall status at discharge: patient is progressing back to baseline Time Spent with Patient Less than 30 minutes Exam Vital Signs (past 8 hours): Oxygen Delivery Method Room Air Oxygen Flow Rate 0 Narrative Exam Narrative: Generally: Patient is sitting up in bed, no acute distress Lungs: Clear to auscultation bilaterally Cardiovascular: Regular rate and rhythm Abdomen: Soft, flat, good bowel sounds. Incisions: Clean dry and intact with op sites and Aquacel dressing Extremities: Negative Homans, no edema Objective Labs Result Diagrams: 06/26/18 06:10 Discharge Plan Discharge Plan Patient Disposition: Home Discharge comment: Call with fever, chills or redness or drainage around incisions or bleeding vaginally more than spotty to light Discharge Med Rec/Prescriptions Prescriptions: New oxycodone-acetaminophen [Percocet] 5-325 mg tablet 1 tab PO Q4-6H PRN (Reason: pain) Qty: 30 RF: 0 docusate sodium [Colace] 100 mg capsule 100 mg PO DAILY Qty: 20 RF: 0 ibuprofen 600 mg tablet 600 mg PO TID PRN (Reason: pain) Qty: 30 RF: 0 Continued multivitamin Capsule 1 tab PO DAILY RF: 0 Discontinued norgestimate-ethinyl estradiol [Ortho Tri-Cyclen (28)] 0.18/0.215/0.25 mg-35 mcg (28) tablet 1 tab PO DAILY Qty: 84 RF: 0 Follow up/Referrals: Enedina Palafox MD [Physician] - 07/02/18 2:15 pm (Aquacel dressing removal on 07/02/18 @ 2:[address] palafox [phone]) Provider Discharge Instructions Diet: Regular Activity: No heavy lifting Skin/Wound/Dressing Care Report to your healthcare provider any signs of infection, such as:: chills, fever, increased pain, unusual drainage and unusual redness Dressing: Remove outer plastic dressings and guaze today after a shower Visit Report/Discharge Packet Instructions: DI for an Appendectomy, DI for Hysterectomy, DI for Lysis of Adhesions, DI for Constipation, How to Prevent Falls, DI for Postoperative Pain Stand Alone Forms: Surgery Discharge Discharge Data Primary Care Provider: Torie Bustillo Attending Provider: Enedina Palafox Admit Date/Time: 06/25/18 08:31 Discharges patient from system. Discharge Date/Time: 06/27/18 10:02 Quality VTE Deep Vein Thrombosis/Pulmonary Embolism Present on Admission: No
== END 2018-06-27 10:02 | disposition home or self-care (01) | DRG 743 ==
LOC: OR 10:03 → AC 10:17
PROVIDERS: Surgery; Admitting Provider Obstetrics & Gynecology; PCP Family Medicine; Visit Provider Obstetrics & Gynecology
PROC: 0UT94ZL Resection of Uterus, Supracervical, Percutaneous Endoscopic Approach (ICD-10-PCS; principal; 2018-06-25 11:15)
PROC: 0DNE0ZZ Release Large Intestine, Open Approach (ICD-10-PCS; CPT 44950; 2018-06-25 11:15)
DX: N92.1 Excessive and frequent menstruation with irregular cycle (principal); N94.6 Dysmenorrhea, unspecified; R10.2 Pelvic and perineal pain; N73.6 Female pelvic peritoneal adhesions (postinfective); K38.1 Appendicular concretions; Z87.891 Personal history of nicotine dependence
CPT/HCPCS: 36415; 44950; 58180; 85025; J0690; J1100; J1170; J1885; J2250; J2405; J2704; J2765; J2795; J3010; J3301

== ENCOUNTER 2018-07-01 06:03 | Inpatient (IN) | payer OTHER, SELFPAY ==
[2018-06-25 10:30] VITALS: BMI 22.3
[2018-07-01] VITALS (12 sets, daily range): BP systolic 105–153; BP diastolic 48–103; PULSE 87–108; RESP 14–20; TEMP 36.6–38.2; O2SAT 99–100; BMI 22.1; BMI 22.2
--- NOTE | 2018-07-01 06:31 | ED.ABDPAIN ---
HPI - Abdominal Pain General Chief Complaint: Abdominal Pain Stated Complaint: Had surgery Mon/extreme pain/hurts to breath Time Seen by Provider: 07/01/18 06:17 Source: patient Mode of arrival: ambulatory Limitations: no limitations History of Present Illness HPI narrative: Patient is a 33-year-old female who 1 week ago underwent a hysterectomy where they removed her uterus and bilateral tubes. Her ovaries were left. She also had a appendectomy. Postoperatively things were improving. Was discharged on hospital day 2. He has been taking her pain medication. Yesterday stated that she started having left-sided lower abdominal pain. And also coughing. No fevers. Has been taking her home pain medication but no other interventions for her symptoms. no reported fevers. Related Data Home Medications Medication Instructions Recorded Confirmed multivitamin 1 tab PO DAILY 12/29/17 06/25/18 Previous Rx's Medication Instructions Recorded docusate sodium [Colace] 100 mg PO DAILY #20 cap 06/27/18 ibuprofen 600 mg PO TID PRN #30 tab 06/27/18 oxycodone-acetaminophen [Percocet] 1 tab PO Q4-6H PRN #30 tab 06/27/18 Allergies Allergy/AdvReac Type Severity Reaction Status Date / Time No Known Drug Allergies Allergy Verified 06/25/18 08:45 Review of Systems Constitutional Denies fever(s) and Denies headache(s) ENT Ears, Nose, Mouth, and Throat: Denies vertigo, Denies dizziness and Denies headache(s) Cardiovascular Denies chest pain and Reports dyspnea Respiratory Reports dyspnea Gastrointestinal Gastrointestinal: Reports abdominal pain, Denies change in bowel habits, Denies change in stool character, Reports nausea and Denies vomiting Genitourinary Denies dysuria Musculoskeletal Denies myalgias and Denies arthralgias Integumentary/Breasts Denies rash Neurologic Denies vertigo, Denies dizziness and Denies headache(s) Hematologic/Lymphatic Denies easy bleeding and Denies easy bruising FORMERLY [facility] Medical History Irregular menstrual cycle (Chronic ~2006) Ovarian cyst (Chronic ~2004) Painful menstrual periods (Chronic ~2009) Surgical History Anesthesia (Resolved) History of delivery (Resolved) History of laparoscopy (Resolved) History of left oophorectomy (Resolved ~2012) History of tubal ligation (Resolved) Family History (Updated 04/01/18 @ 21:40 by Teresa Cerda) Father Stroke Mother Hypertension Sister Hypertension Grandfather Cancer Hypertension Grandmother Hyperlipidemia Hypertension Social History Smoking Status: Former smoker Family History Father Stroke Mother Hypertension Sister Hypertension Grandfather Cancer Hypertension Grandmother Hyperlipidemia Hypertension Social History household members: spouse Smoking Status: Former smoker Exam Initial Vital Signs Initial Vital Signs: Vital Signs Temperature 97.9 F 07/01/18 06:16 Pulse Rate 92 H 07/01/18 06:16 Respiratory Rate 20 07/01/18 06:16 Blood Pressure 125/68 07/01/18 06:16 Pulse Oximetry 100 07/01/18 06:16 Const General: cooperative, well developed, well groomed and No acute distress Orientation: alert, awake and oriented x3 HENMT Head: normal to inspection and normocephalic Resp Effort & Inspection: normal respiratory effort Auscultation: crackles bilaterally and rhonchi upper bilaterally and lower bilaterally Cardio Rate: regular rate Rhythm: regular rhythm GI Inspection: non-distended Palpation: soft and tender (Lower abdomen left lower quadrant) Skin Other: Lower abdominal surgical incision looks well Neuro General: alert, awake and oriented x3 Cognition: normal cognition Speech: speech normal Extrem General: normal to inspection and capillary refill normal Psych Appearance: grossly normal and well kempt Scores GCS Andrei coma scale eye opening: Spontaneous Andrei coma scale verbal response: Orientated Andrei coma scale motor response: Obey commands Andrei coma scale total score: 15 Course Orders Ordered: ED Orders 07/01/18 10:35 Complete Blood Count AUTO DIFF Stat Type and Screen Stat blood [Packed Cells] Stat 07/01/18 14:30 Hemoglobin and Hematocrit Stat 07/01/18 19:00 Hemoglobin and Hematocrit Urgent Hydromorphone HCl (Dilaudid) 2 mg IV Q4HR PRN PRN Reason: Pain, Moderate (4-6) Last Admin: 07/01/18 16:24 Dose: 1 mg Sodium Chloride (Normal Saline 0.9%) 1,000 mls @ 125 mls/hr IV CONT ARIA Last Admin: 07/01/18 16:02 Dose: 125 mls/hr Ondansetron HCl (Zofran) 4 mg IV Q4HR PRN PRN Reason: Nausea And Vomiting Discontinued Medications Hydromorphone HCl (Dilaudid) 0.5 mg IV NOW ONE Stop: 07/01/18 06:33 Last Admin: 07/01/18 06:56 Dose: 0.5 mg Hydromorphone HCl (Dilaudid) 1 mg IV NOW ONE Stop: 07/01/18 09:19 Last Admin: 07/01/18 09:49 Dose: 1 mg Sodium Chloride (Normal Saline 0.9%) 1,000 mls @ 1,000 mls/hr IV BOLUS ONE Stop: 07/01/18 07:19 Last Infusion: 07/01/18 08:36 Dose: 0 mls/hr Admin: 07/01/18 06:57 Dose: 1,000 mls/hr Ketorolac Tromethamine (Toradol) 30 mg IV NOW ONE Stop: 07/01/18 10:24 Last Admin: 07/01/18 10:33 Dose: 30 mg Ondansetron HCl (Zofran) 4 mg IV NOW ONE Stop: 07/01/18 06:33 Last Admin: 07/01/18 06:56 Dose: 4 mg Vital Signs - 8 hr 07/01/18 12:00 07/01/18 12:36 07/01/18 13:23 Temperature 98.6 F Pulse Rate 101 H 103 H 101 H Respiratory Rate 17 15 14 Blood Pressure 111/60 118/63 Blood Pressure [Left Arm] 114/54 L Pulse Oximetry 100 100 100 07/01/18 17:13 07/01/18 17:17 Temperature 100.6 F H 100.7 F H Pulse Rate 104 H Respiratory Rate 18 Blood Pressure 153/60 H Blood Pressure [Left Arm] Pulse Oximetry 100 MDM - Abdominal Pain Lab Data Result diagrams: 07/01/18 14:30 07/01/18 06:50 Lab Results 07/01/18 07/01/18 07/01/18 Range/Units 06:50 06:50 10:35 WBC 11.0 10.2 (4.5-11.0) X10^3/uL RBC 3.08 L 2.49 L (4.0-5.2) X10^6/uL Hgb 9.6 L 7.7 L (12.0-16.0) g/dL Hct 27.5 L 22.3 L (36-46) % MCV 89.4 89.9 (80-100) fL MCH 31.1 31.0 (26-34) PG MCHC 34.8 34.4 (30-36) % RDW 12.3 12.4 (11.6-14.8) % Plt Count 312 239 (150-400) X10^3/uL Neut % (Auto) 72.2 78.7 H (50-75) % Lymph % (Auto) 17.0 L 12.4 L (25-40) % [place] % (Auto) 8.8 8.0 (3-14) % Eos % (Auto) 1.5 L 0.5 L (2-4) % Baso % (Auto) 0.5 0.4 (0-2) % Neut # (Auto) 7900 H 8100 H (8382-6157) /uL Lymph # (Auto) 1900 1300 (0775-1574) /uL [place] # (Auto) 1000 H 800 (0-900) /uL Eos # (Auto) 200 0 (0-450) /uL Baso # (Auto) 100 0 (0-100) /uL Sodium 135 L (137-145) mmol/L Potassium 3.7 (3.4-5.1) mmol/L Chloride 100 (98-107) mmol/L Carbon Dioxide 28 (22-32) mmol/L BUN 8 (7-17) mg/dL Creatinine 0.60 (0.52-1.04) mg/dL Estimated GFR > 60.0 (>60) mL/min BUN/Creatinine Ratio 13.3 (6-22) Glucose 98 (70-100) mg/dL Calcium 9.7 (8.4-10.2) mg/dL Total Bilirubin 0.5 (0.2-1.3) mg/dL AST 20 (14-36) IU/L ALT 21 (9-52) IU/L Alkaline Phosphatase 63 (38-126) U/L Total Protein 8.0 (6.3-8.2) g/dL Albumin 4.4 (3.5-5.0) g/dL Globulin 3.6 (1.7-4.1) g/dL Albumin/Globulin Ratio 1.2 (1.0-2.8) Lipase 11 L (23-300) U/L Blood Type Antibody Screen Crossmatch 07/01/18 07/01/18 Range/Units 10:35 14:30 WBC (4.5-11.0) X10^3/uL RBC (4.0-5.2) X10^6/uL Hgb 7.5 L (12.0-16.0) g/dL Hct 22.0 L (36-46) % MCV (80-100) fL MCH (26-34) PG MCHC (30-36) % RDW (11.6-14.8) % Plt Count (150-400) X10^3/uL Neut % (Auto) (50-75) % Lymph % (Auto) (25-40) % [place] % (Auto) (3-14) % Eos % (Auto) (2-4) % Baso % (Auto) (0-2) % Neut # (Auto) (5178-1343) /uL Lymph # (Auto) (3075-9563) /uL [place] # (Auto) (0-900) /uL Eos # (Auto) (0-450) /uL Baso # (Auto) (0-100) /uL Sodium (137-145) mmol/L Potassium (3.4-5.1) mmol/L Chloride (98-107) mmol/L Carbon Dioxide (22-32) mmol/L BUN (7-17) mg/dL Creatinine (0.52-1.04) mg/dL Estimated GFR (>60) mL/min BUN/Creatinine Ratio (6-22) Glucose (70-100) mg/dL Calcium (8.4-10.2) mg/dL Total Bilirubin (0.2-1.3) mg/dL AST (14-36) IU/L ALT (9-52) IU/L Alkaline Phosphatase (38-126) U/L Total Protein (6.3-8.2) g/dL Albumin (3.5-5.0) g/dL Globulin (1.7-4.1) g/dL Albumin/Globulin Ratio (1.0-2.8) Lipase (23-300) U/L Blood Type O Positive Antibody Screen Negative Crossmatch See Detail Point of care testing: Urine Dip Bedside Urine Glucose Negative Bedside Urine Bilirubin - Negative Bedside Urine Ketone - Negative Urine Specific [place] 1.010 Bedside Urine Occult Blood - Negative Bedside Urine pH 8.5 Bedside Urine Protein - Negative Bedside Urine Urobilinogen - Negative Bedside Urine Nitrite - Negative Bedside Urine Leukocytes - Negative Esterase MDM Narrative Medical decision making narrative: Patient does have coarse breath sounds bilaterally. Given the fact that she was intubated recently will obtain a chest x-ray to evaluate for possible pneumonia. She is afebrile. Her lower abdominal incision looks well. No drainage. she is tender in her left lower quadrant. Given the fact that she does had any intra-abdominal surgery will obtain a CT scan to evaluate for intra-abdominal pathology. Patient was given pain medication. Care turned over today provider to follow up on labs and CT scan results. Discharge Plan Departure Patient Disposition: Admitted as Observation Clinical Impression: Post-operative hemorrhage Discharge Date/Time: 07/01/18 12:36 Interventions: ED Discharge Assessment Last Done: 07/01/18 12:36 Admit Date/Time: 07/01/18 11:53 Admit Provider: Enedina Palafox
--- NOTE | 2018-07-01 06:32 | DI.RAD.S_ITS ---
PROCEDURE: XR CHEST 1V INDICATIONS: Coarse breath sounds bilaterally post surgery TECHNIQUE: One view of the chest was acquired. COMPARISON: None. FINDINGS: Surgical changes and devices: None. Lungs and pleura: Lungs are clear. No pleural effusions or pneumothorax. Mediastinum: Mediastinal contours appear normal. Heart size is normal. Bones and chest wall: No suspicious bony lesions. Overlying soft tissues appear unremarkable. IMPRESSION: Normal for age, source of current coarse breath sounds symptoms is not seen. Dictated by: Munir Padilla M.D. on 07/01/2018 at 8:15 Approved by: Munir Padilla M.D. on 07/01/2018 at 8:15
--- NOTE | 2018-07-01 06:32 | DI.CT.S_ITS ---
PROCEDURE: CT ABDOMEN PELVIS W CON INDICATIONS: Left-sided abdominal pain post hysterectomy TECHNIQUE: After the administration of intravenous contrast, 5 mm thick sections acquired from the diaphragm to the symphysis. 5 mm coronal and sagittal reformats were acquired. For radiation dose reduction, the following was used: automated exposure control, adjustment of mA and/or kV according to patient size. COMPARISON: [facility], CR, XR CHEST 1V, 07/01/2018, 6:51. FINDINGS: Image quality: Excellent. ABDOMEN: Lung bases: Lung bases are clear. Heart size is normal. Solid organs: Liver is normal in size and enhancement. Gallbladder appears normal. Biliary system is non dilated. Pancreas enhances normally. Spleen is normal in size and enhancement. No adrenal nodules. Kidneys demonstrate normal size and enhancement, without hydronephrosis. Peritoneum and bowel: Bowel loops demonstrate normal wall thickness and caliber. No free fluid within the abdominal portion of the study but there is a small amount of free air in this patient who has undergone hysterectomy approximately 3-4 days ago. Nodes and vessels: No retroperitoneal or mesenteric adenopathy by size criteria. Aorta and inferior vena cava are normal in size. Miscellaneous: No ventral hernias. PELVIS: Genitourinary: Bladder wall thickness is normal. Miscellaneous: No inguinal hernias or adenopathy. Within the pelvis there is a relatively large amount of intraperitoneal high density material which appears to represent clot in this clinical circumstance. This ranges between 55 and 75 Hounsfield units. At the right lower quadrant there is a curvilinear radiodensity that is suspicious for representing active bleeding at time of scanning, but this also could represent a curvilinear enteric staple line related to prior appendectomy. Bones: No suspicious bony lesions. No vertebral body compression fractures. IMPRESSION: Clot within the peritoneal space of the pelvis, a slight amount of free air is seen. Curvilinear radiodensity medial to the cecum raises concern for active bleeding at time of however the findings were discussed personally with the emergency room physician caring for the patient and an appendectomy was performed during the operative procedure. This therefore raises the possibility of unusual appendectomy closure, and the patient will be returned to the CT scanner for delayed scanning through this area. A staple line should not change in radiodensity. Expected postsurgical changes with small amounts of gas within the pelvic body wall and lower abdominal midline body wall, presumably reflecting access ports for the operative procedure. An addendum to this report will be performed after review of the upcoming images. Dictated by: Munir Padilla M.D. on 07/01/2018 at 8:19 Approved by: Munir Padilla M.D. on 07/01/2018 at 8:30
[2018-07-01] MEDS: HYDROMORPHONE 0.5 MG INJ IV (06:56)
[2018-07-01] MEDS: ONDANSETRON 4 MG/2 ML INJ IV (06:56)
[2018-07-01] MEDS: SODIUM CHLORIDE 0.9% 1,000 ML 1000 ML IV (06:57)
[2018-07-01 07:00] LABS: Add Manual Diff / Slide Review NO; Basophils Absolute Auto 100 /uL (0-100); Basophils Percent Auto 0.5 % (0-2); Eosinophils Absolute Auto 200 /uL (0-450); Eosinophils Percent Auto 1.5 % (2-4); Hematocrit 27.5 % (36-46); Hemoglobin 9.6 g/dL (12.0-16.0); Lymphocytes Absolute Auto 1900 /uL (1100-4500); Mean Corpuscular HGB Conc 34.8 % (30-36); Mean Corpuscular Hemoglobin 31.1 PG (26-34); Mean Corpuscular Volume 89.4 fL (80-100); Monocytes Absolute Auto 1000 /uL (0-900); Monocytes Percent Auto 8.8 % (3-14); Neutrophils Absolute Auto 7900 /uL (1500-7000); Neutrophils Percent Auto 72.2 % (50-75); Platelet Count 312 X10^3/uL (150-400); Red Blood Cell Count 3.08 X10^6/uL (4.0-5.2); Red Cell Distribution Width 12.3 % (11.6-14.8)
[2018-07-01 07:13] LABS: Alanine Aminotransferase 21 IU/L (9-52); Albumin 4.4 g/dL (3.5-5.0); Albumin Globulin Ratio 1.2 (1.0-2.8); Alkaline Phosphatase 63 U/L (38-126); Aspartate Aminotransferase 20 IU/L (14-36); BUN Creatinine Ratio 13.3 (6-22); Bilirubin Total 0.5 mg/dL (0.2-1.3); Blood Urea Nitrogen 8 mg/dL (7-17); Calcium 9.7 mg/dL (8.4-10.2); Carbon Dioxide 28 mmol/L (22-32); Chloride 100 mmol/L (98-107); Estimated Glomerular Filt Rate > 60.0 mL/min (>60); Globulin 3.6 g/dL (1.7-4.1); Glucose 98 mg/dL (70-100); HEMOLYSIS < 15 (0-50); Lipase 11 U/L (23-300); Potassium 3.7 mmol/L (3.4-5.1); Sodium 135 mmol/L (137-145)
--- NOTE | 2018-07-01 07:38 | PC.NURSE ---
Pt reports good pain relief after dilaudid. Pt mentioned that since her surgery, she has had episodes of faintness with exertion. Tongue is pale pink, pt appears pale. Dr Yanez notified.
[2018-07-01] MEDS: HYDROMORPHONE 1 MG INJ IV (09:49)
[2018-07-01] MEDS: KETOROLAC 60 MG/2 ML VIAL 30 MG IV (10:33)
[2018-07-01 10:46] LABS: Add Manual Diff / Slide Review NO; Basophils Absolute Auto 0 /uL (0-100); Basophils Percent Auto 0.4 % (0-2); Eosinophils Absolute Auto 0 /uL (0-450); Eosinophils Percent Auto 0.5 % (2-4); Hemoglobin 7.7 g/dL (12.0-16.0); Lymphocytes Absolute Auto 1300 /uL (1100-4500); Lymphocytes Percent Auto 12.4 % (25-40); Mean Corpuscular HGB Conc 34.4 % (30-36); Mean Corpuscular Volume 89.9 fL (80-100); Monocytes Absolute Auto 800 /uL (0-900); Neutrophils Absolute Auto 8100 /uL (1500-7000); Neutrophils Percent Auto 78.7 % (50-75); Platelet Count 239 X10^3/uL (150-400); Red Blood Cell Count 2.49 X10^6/uL (4.0-5.2); Red Cell Distribution Width 12.4 % (11.6-14.8); White Blood Cell Count 10.2 X10^3/uL (4.5-11.0)
[2018-07-01 10:53] LABS: Hematocrit 22.3 % (36-46)
[2018-07-01 14:42] LABS: Hemoglobin 7.5 g/dL (12.0-16.0)
[2018-07-01] MEDS: SODIUM CHLORIDE 0.9% 1,000 ML 125 ML IV ×2 (16:02→22:57)
[2018-07-01] MEDS: HYDROMORPHONE 2 MG INJ IV ×3 (16:24→22:56)
[2018-07-01 19:11] LABS: Hemoglobin 7.3 g/dL (12.0-16.0)
[2018-07-01 19:15] LABS: Hematocrit 21.7 % (36-46)
[2018-07-02] VITALS (18 sets, daily range): BP systolic 105–137; BP diastolic 60–80; PULSE 103–122; RESP 15–20; TEMP 37.2–38.6; O2SAT 98–100; BMI 22.2
--- NOTE | 2018-07-02 | DI.US.S_ITS ---
PROCEDURE: US PELVIC COMPLETE INDICATIONS: POST OP PELVIC HEMATOMA ON CT TECHNIQUE: Real-time scanning was performed of the pelvic organs, with image documentation. Additional endovaginal scanning was necessary due to incomplete visualization of the adnexal and endometrial structures by transabdominal scanning. COMPARISON: [facility], CT, CT ABDOMEN PELVIS W CON, 07/01/2018, 7:50. FINDINGS: Transabdominal scanning: Limited scanning through the kidneys shows no hydronephrosis. No pathologic free abdominal or pelvic fluid. Endovaginal scanning: Uterus: The uterus is surgically absent. However, there is a 15.1 x 4.1 x 8.4 cm hypoechoic structure that does not demonstrate internal vascularity, which is positioned within the pelvis and has a somewhat elongated appearance. Ovaries: Not evident. IMPRESSION: Probable postoperative hematoma versus seroma within the pelvis appears similar to the prior CT. Dictated by: Jarrod Be M.D. on 07/02/2018 at 10:33 Approved by: Jarrod Be M.D. on 07/02/2018 at 10:38
--- NOTE | 2018-07-02 | PC.NURSE ---
Addendum entered by Dannielle Stein R.N. 07/02/18 06:49: Complains of 5/10 pain this morning so medicated with Dilaudid. Also had Dilaudid approximately 0230 for 6/10 pain. States pain is a dull ache throughout her abdomen. Original Note: Patient is alert and oriented. Breath sounds CTA with RA sat of 98%. HRR but tachy at 100 bpm. Denies nausea. BT present and abdomen is soft. Steristrips to lap sites intact with no drainage. Lower abdominal incision well approximated and open to air. Denies pain at present time. Denies dysuria, frequency or urgency and is up to bathroom independently. Moves herself in bed. Fall risk score is low. NPO now after 0000; patient verbalizes understanding.
[2018-07-02] MEDS: HYDROMORPHONE 2 MG INJ IV ×2 (02:27→06:46)
[2018-07-02 06:19] LABS: Hematocrit 21.1 % (36-46); Hemoglobin 7.1 g/dL (12.0-16.0)
[2018-07-02] MEDS: SODIUM CHLORIDE 0.9% 1,000 ML 125 ML IV (07:40)
--- NOTE | 2018-07-02 11:41 | SUR.HOLD ---
Addendum entered by Jade Rivas R.N. 07/02/18 11:48: iv started in opd Original Note: second iv start in left hand by osiris vargas rn
[2018-07-02] MEDS: LACTATED RINGERS 1,000 ML 42 ML IV ×2 (11:45→13:03)
--- NOTE | 2018-07-02 12:08 | PM.PREOP ---
Pre-operative Note Interval Note History & Physical reviewed/Exam performed by Physician: Yes Changes to H&P: No
[2018-07-02] MEDS: fentaNYL 100 MCG/2 ML INJ IV (12:10)
--- NOTE | 2018-07-02 12:20 | SUR.OPER ---
Lithotomy on padded OR bed, head on pillow, arms secured on padded arm boards at <90 degrees abduction. Legs secured in padded yellow fins stirrups.
[2018-07-02] MEDS: BUPIVACAINE 0.5% W/ EPI (PF) VIAL 30 ML INJ (13:08)
[2018-07-02] MEDS: CEFAZOLIN 1 GM VIAL IV (13:11)
--- NOTE | 2018-07-02 13:41 | SUR.OPER ---
PATIENT STRAIGHT CATHED AT END OF PROCEDURE BY DR. TELLEZ
[2018-07-02] MEDS: HYDROMORPHONE 2 MG INJ 0.5 MG IV ×3 (14:14→14:29)
--- NOTE | 2018-07-02 14:19 | SUR.PHASEI ---
1414 arousing, beginning to moan softly, acknowledged that she wanted Rx - given. Resp unlabored, skin warm and dry
--- NOTE | 2018-07-02 14:23 | SUR.PHASEI ---
Addendum entered by Francisca Epps R.N. 07/02/18 14:23: Abdomen soft, patient rubs mid-abdomen as area of the pain. Original Note: Pain level unchanged, patient reassured that we will get her more comfortable.
[2018-07-02] MEDS: ONDANSETRON 4 MG/2 ML INJ IV (14:31)
--- NOTE | 2018-07-02 14:38 | SUR.PHASEI ---
1436 Reports that pain and nausea have improved. Dozing, no longer moaning,
--- NOTE | 2018-07-02 15:01 | CM.DANOTE ---
Discharge Planning/Care Management DCP: assessment: case received, EMR reviewed. Discussed case in Team Rounds. RN Coordinator Jade reported that pt was going to surgery this morning: Surgeon: Dr. Palafox. She remains in PACU at this time. Pt is a 33 year old female who admitted yesterday to care of Dr. Palafox. Payer: [facility] PCP: Torie Bustillo READMIT: noted: pt was just here 06-25 to for an open hysterectomy/appendectomy/MARIJA. She was able to d/c to home with her . Presented to ER 07/01 with severe LLQ pain. ER physician is available. No H&P is yet noted. DCP team will be following. CM Discharge Assessment Start: 07/02/18 14:59 Freq: Status: Active Protocol: Document 07/02/18 14:59 ITV (Rec: 07/02/18 15:00 ITV [id number]) Discharge Planning Assessment Advance Directives? No History Provided By Medical Record Has Patient been admitted in last 30 Yes days? Prior Living Arrangements Apartment/Condo Household Members spouse Review Status In Process Next Review Type Continued Stay Review
--- NOTE | 2018-07-02 15:03 | SUR.PHASEI ---
1452 to room 227, bed down and locked, call light within reach. Drowsy, oriented, no moaning, no nausea/vomiting. SCDs on. Staff (x3) on site and updated regarding medication and time of zofran dose. Resp unlabored, Stable.
[2018-07-02] MEDS: OXYCODONE/ACETAMINOPHEN 5/325 TABLET 2 TAB PO ×2 (17:19→20:35)
[2018-07-02] MEDS: MORPHINE 2 MG/ML INJ 1 MG IV (17:45)
[2018-07-02] MEDS: LACTATED RINGERS 1,000 ML 100 ML IV (17:50)
[2018-07-02] MEDS: DOCUSATE 250 MG CAPSULE PO (20:37)
[2018-07-02] MEDS: SIMETHICONE 80 MG TABLET PO (20:37)
[2018-07-02] MEDS: AMPICILLIN/SULBACTAM 1.5 GM 1.5 GM in SODIUM CHLORIDE 0.9% 100 ML IV (20:55)
[2018-07-02] MEDS: metroNIDAZOLE 500 MG/100 ML PIGGYBACK 100 MG IV (22:31)
--- NOTE | 2018-07-02 23:44 | PC.NURSE ---
Addendum entered by Dannielle Stein R.N. 07/03/18 06:47: Medicated with Percocet again at 0530 for 5/10 abdominal pain and is currently sleeping. HR 94 this morning. Original Note: Addendum entered by Dannielle Stein R.N. 07/03/18 01:17: Complains of 6/10 diffuse abdominal pain always gets bad when I get up to commode. Medicated with Percocet. Original Note: Patient is alert and oriented. Breath sounds CTA with RA sat of 100%. HRR but tachy at 110 at shift change now with rate in 90's. Denies nausea. BT absent and denies flatus. Lap sites x 3 with gauze dressings; umbilical dressing with serosanguinous drainage noted. Lower abdominal incision well approximated and without redness or drainage. Turns self in bed and is up to BSC independently; voiding without difficulty. Denies pain at present time. SCD's off at shift change but now requests them off. Fall risk score is low.
[2018-07-03] VITALS (9 sets, daily range): BP systolic 103–123; BP diastolic 57–80; PULSE 90–119; RESP 15–20; TEMP 37.1–38.4; O2SAT 98–100
[2018-07-03] MEDS: OXYCODONE/ACETAMINOPHEN 5/325 TABLET 2 TAB PO ×4 (01:16→17:52)
[2018-07-03] MEDS: AMPICILLIN/SULBACTAM 1.5 GM 1.5 GM in SODIUM CHLORIDE 0.9% 100 ML IV ×4 (03:01→20:40)
[2018-07-03] MEDS: metroNIDAZOLE 500 MG/100 ML PIGGYBACK 100 MG IV ×3 (05:32→23:57)
[2018-07-03 05:58] LABS: Add Manual Diff / Slide Review NO; Basophils Absolute Auto 0 /uL (0-100); Basophils Percent Auto 0.2 % (0-2); Eosinophils Absolute Auto 0 /uL (0-450); Hematocrit 22.8 % (36-46); Hemoglobin 7.7 g/dL (12.0-16.0); Lymphocytes Absolute Auto 900 /uL (1100-4500); Lymphocytes Percent Auto 3.9 % (25-40); Mean Corpuscular HGB Conc 33.9 % (30-36); Mean Corpuscular Hemoglobin 30.5 PG (26-34); Monocytes Absolute Auto 1200 /uL (0-900); Monocytes Percent Auto 5.3 % (3-14); Neutrophils Absolute Auto 20700 /uL (1500-7000); Neutrophils Percent Auto 90.6 % (50-75); Platelet Count 302 X10^3/uL (150-400); Red Blood Cell Count 2.53 X10^6/uL (4.0-5.2); Red Cell Distribution Width 12.4 % (11.6-14.8); White Blood Cell Count 22.9 X10^3/uL (4.5-11.0)
[2018-07-03] MEDS: MORPHINE 2 MG/ML INJ 1 MG IV ×2 (07:56→11:05)
[2018-07-03] MEDS: SIMETHICONE 80 MG TABLET PO ×3 (08:01→20:40)
[2018-07-03] MEDS: DOCUSATE 250 MG CAPSULE PO ×2 (08:02→20:40)
[2018-07-03] MEDS: LACTATED RINGERS 1,000 ML 100 ML IV (12:26)
[2018-07-03 15:50] LABS: Add Manual Diff / Slide Review NO; Basophils Absolute Auto 100 /uL (0-100); Basophils Percent Auto 0.4 % (0-2); Eosinophils Absolute Auto 0 /uL (0-450); Eosinophils Percent Auto 0.1 % (2-4); Hematocrit 21.6 % (36-46); Hemoglobin 7.3 g/dL (12.0-16.0); Lymphocytes Absolute Auto 1300 /uL (1100-4500); Lymphocytes Percent Auto 6.2 % (25-40); Mean Corpuscular HGB Conc 33.6 % (30-36); Mean Corpuscular Hemoglobin 30.4 PG (26-34); Mean Corpuscular Volume 90.4 fL (80-100); Monocytes Absolute Auto 1500 /uL (0-900); Monocytes Percent Auto 7.1 % (3-14); Neutrophils Absolute Auto 18100 /uL (1500-7000); Neutrophils Percent Auto 86.2 % (50-75); Platelet Count 296 X10^3/uL (150-400); Red Blood Cell Count 2.39 X10^6/uL (4.0-5.2); Red Cell Distribution Width 12.4 % (11.6-14.8)
[2018-07-03 16:04] LABS: Blood Urea Nitrogen 6 mg/dL (7-17); Calcium 8.4 mg/dL (8.4-10.2); Carbon Dioxide 26 mmol/L (22-32); Chloride 101 mmol/L (98-107); Estimated Glomerular Filt Rate > 60.0 mL/min (>60); Glucose 105 mg/dL (70-100); HEMOLYSIS < 15 (0-50); Potassium 3.6 mmol/L (3.4-5.1); Sodium 133 mmol/L (137-145)
--- NOTE | 2018-07-03 19:17 | PC.NURSE ---
New orders per Dr Palafox, percolone 10mg PO Q-3hr, and DC LR @ 125, start D5NS @ 150, to RFA. Pt ambulating hallways 2x. Showered. 1730- temp 101.5, took off blankets and turned on fan, 1750 temp 100.5, admin percocet 2 tabs PO.
[2018-07-03] MEDS: DEXTROSE 5%-0.9% NS 1,000 ML 150 ML IV (20:08)
[2018-07-03] MEDS: OXYCODONE IR 10 MG TABLET PO (20:50)
--- NOTE | 2018-07-03 21:05 | PM.PNPO.1 ---
Subjective Date Patient Seen: 07/03/18 Time Patient Seen: 17:45 Interval history: Patient tolerating clear liquids. She is burping but no flatus. She is ambulating. Exam Vital Signs (past 8 hours): - 07/03/18 15:57 07/03/18 19:30 Temperature 101.1 F H 99.6 F Pulse Rate 119 H 114 H Respiratory Rate 16 15 Blood Pressure 123/67 117/57 L Pulse Oximetry 99 100 Oxygen Delivery Method Room Air Oxygen Flow Rate 0 Narrative Exam Narrative: Generally: Patient is ambulating with a walker in the plata with her at her side. Lungs: Clear to auscultation bilaterally. These were examined earlier in the day. Abdomen: Soft, flat, minimal bowel sounds Incisions: Clean dry and intact Extremities: Negative Homans, no edema Objective Labs Result Diagrams: 07/03/18 15:38 07/03/18 15:38 Labs: Laboratory Results - last 24 hr 07/03/18 07/03/18 07/03/18 05:06 15:38 15:38 WBC 22.9 H D 21.0 H RBC 2.53 L 2.39 L Hgb 7.7 L 7.3 L Hct 22.8 L 21.6 L MCV 90.0 90.4 MCH 30.5 30.4 MCHC 33.9 33.6 RDW 12.4 12.4 Plt Count 302 296 Neut % (Auto) 90.6 H 86.2 H Lymph % (Auto) 3.9 L 6.2 L [place] % (Auto) 5.3 7.1 Eos % (Auto) 0.0 L 0.1 L Baso % (Auto) 0.2 0.4 Neut # (Auto) 86412 H 38038 H Lymph # (Auto) 900 L 1300 [place] # (Auto) 1200 H 1500 H Eos # (Auto) 0 0 Baso # (Auto) 0 100 Sodium 133 L Potassium 3.6 Chloride 101 Carbon Dioxide 26 BUN 6 L Creatinine 0.60 Estimated GFR > 60.0 BUN/Creatinine Ratio 10.0 Glucose 105 H Calcium 8.4 Assessment & Plan Post-op Postoperative Procedures Operation Date: 07/02/18 11:15 Actual Procedures Side Surgeon p Laparoscopy, Diagnostic-Evacuation of hematoma Not Applicable Enedina Palafox MD Postoperative day: 1 Postoperative status: febrile and post-op ileus Postoperative status narrative: POD#1 s/p dx lap with evacuation of clot with ileus and fever Postoperative plan narrative: Con't clears for now Con't antibiotics Time Spent With Patient 15-24 minutes Quality VTE Deep Vein Thrombosis/Pulmonary Embolism Present on Admission: No
[2018-07-03] MEDS: METOCLOPRAMIDE 10 MG/2 ML INJ IV (21:07)
--- NOTE | 2018-07-03 21:08 | P.PN_ITS ---
Subjective Date Patient Seen: 07/03/18 Time Patient Seen: 17:45 Interval history: Patient tolerating clear liquids. She is burping but no flatus. She is ambulating. Exam Vital Signs (past 8 hours): - 07/03/18 15:57 07/03/18 19:30 Temperature 101.1 F H 99.6 F Pulse Rate 119 H 114 H Respiratory Rate 16 15 Blood Pressure 123/67 117/57 L Pulse Oximetry 99 100 Oxygen Delivery Method Room Air Oxygen Flow Rate 0 Narrative Exam Narrative: Generally: Patient is ambulating with a walker in the plata with her at her side. Lungs: Clear to auscultation bilaterally. These were examined earlier in the day. Abdomen: Soft, flat, minimal bowel sounds Incisions: Clean dry and intact Extremities: Negative Homans, no edema Objective Labs Result Diagrams: 07/03/18 15:38 07/03/18 15:38 Labs: Laboratory Results - last 24 hr 07/03/18 07/03/18 07/03/18 05:06 15:38 15:38 WBC 22.9 H D 21.0 H RBC 2.53 L 2.39 L Hgb 7.7 L 7.3 L Hct 22.8 L 21.6 L MCV 90.0 90.4 MCH 30.5 30.4 MCHC 33.9 33.6 RDW 12.4 12.4 Plt Count 302 296 Neut % (Auto) 90.6 H 86.2 H Lymph % (Auto) 3.9 L 6.2 L [place] % (Auto) 5.3 7.1 Eos % (Auto) 0.0 L 0.1 L Baso % (Auto) 0.2 0.4 Neut # (Auto) 58969 H 03270 H Lymph # (Auto) 900 L 1300 [place] # (Auto) 1200 H 1500 H Eos # (Auto) 0 0 Baso # (Auto) 0 100 Sodium 133 L Potassium 3.6 Chloride 101 Carbon Dioxide 26 BUN 6 L Creatinine 0.60 Estimated GFR > 60.0 BUN/Creatinine Ratio 10.0 Glucose 105 H Calcium 8.4 Assessment & Plan Post-op Postoperative Procedures Operation Date: 07/02/18 11:15 Actual Procedures Side Surgeon p Laparoscopy, Diagnostic-Evacuation of hematoma Not Applicable Enedina Palafox MD Postoperative day: 1 Postoperative status: febrile and post-op ileus Postoperative status narrative: POD#1 s/p dx lap with evacuation of clot with ileus and fever Postoperative plan narrative: Con't clears for now Con't antibiotics Time Spent With Patient 15-24 minutes Quality VTE Deep Vein Thrombosis/Pulmonary Embolism Present on Admission: No
[2018-07-04] VITALS (8 sets, daily range): BP systolic 115–127; BP diastolic 60–71; PULSE 90–123; RESP 16–20; TEMP 36.9–38.7; O2SAT 100
[2018-07-04] MEDS: OXYCODONE IR 10 MG TABLET PO (00:28)
[2018-07-04] MEDS: AMPICILLIN/SULBACTAM 1.5 GM 1.5 GM in SODIUM CHLORIDE 0.9% 100 ML IV ×3 (02:58→20:10)
[2018-07-04] MEDS: OXYCODONE/ACETAMINOPHEN 5/325 TABLET 2 TAB PO ×3 (04:21→18:26)
--- NOTE | 2018-07-04 05:12 | PC.NURSE ---
Pt continued to have Hr in the 118's- 120, intermittent fever. Pain /10. BP 115/62. Medicated for pain 10mg Oxycodone and Oxycodone Acetaminophen. Pt. still is not passing flatus. Denies nausea.
[2018-07-04 05:20] LABS: Add Manual Diff / Slide Review NO; Basophils Absolute Auto 0 /uL (0-100); Basophils Percent Auto 0.1 % (0-2); Eosinophils Absolute Auto 0 /uL (0-450); Eosinophils Percent Auto 0.2 % (2-4); Hematocrit 21.4 % (36-46); Hemoglobin 7.2 g/dL (12.0-16.0); Lymphocytes Absolute Auto 1300 /uL (1100-4500); Lymphocytes Percent Auto 7.6 % (25-40); Mean Corpuscular HGB Conc 33.5 % (30-36); Mean Corpuscular Hemoglobin 30.2 PG (26-34); Mean Corpuscular Volume 90.2 fL (80-100); Monocytes Absolute Auto 1400 /uL (0-900); Monocytes Percent Auto 8.1 % (3-14); Neutrophils Absolute Auto 14800 /uL (1500-7000); Platelet Count 350 X10^3/uL (150-400); Red Blood Cell Count 2.37 X10^6/uL (4.0-5.2); Red Cell Distribution Width 12.6 % (11.6-14.8); White Blood Cell Count 17.6 X10^3/uL (4.5-11.0)
[2018-07-04 05:22] LABS: Blood Urea Nitrogen 6 mg/dL (7-17); Calcium 8.3 mg/dL (8.4-10.2); Carbon Dioxide 26 mmol/L (22-32); Chloride 100 mmol/L (98-107); Estimated Glomerular Filt Rate > 60.0 mL/min (>60); Glucose 131 mg/dL (70-100); HEMOLYSIS < 15 (0-50); Potassium 3.1 mmol/L (3.4-5.1); Sodium 132 mmol/L (137-145)
[2018-07-04] MEDS: metroNIDAZOLE 500 MG/100 ML PIGGYBACK 100 MG IV ×3 (05:50→22:02)
--- NOTE | 2018-07-04 06:34 | PC.NURSE ---
DR. Wilson notified of patient's H&H, electrolytes, and Vital signs from the night. Dr. Wilson said he would talk to Luz Palafox when he got to the clinic this am. No new orders.
[2018-07-04] MEDS: SIMETHICONE 80 MG TABLET PO ×3 (08:39→20:10)
[2018-07-04] MEDS: DOCUSATE 250 MG CAPSULE PO ×2 (08:40→20:10)
[2018-07-04] MEDS: MORPHINE 2 MG/ML INJ 1 MG IV (12:44)
[2018-07-04] MEDS: DEXTROSE 5%-0.9% NS 1,000 ML 150 ML IV ×2 (12:45→18:58)
[2018-07-04] MEDS: GLYCERIN SUPP ADULT 1 SUPP 1 EACH PR (13:56)
--- NOTE | 2018-07-04 14:14 | DI.RAD.S_ITS ---
PROCEDURE: XR CHEST 1V INDICATIONS: increased pain, sob, tachy post surgery TECHNIQUE: One view of the chest was acquired. COMPARISON: [facility], CR, XR CHEST 1V, 07/01/2018, 6:51. FINDINGS: Surgical changes and devices: None. Lungs and pleura: Lungs are clear. No pleural effusions or pneumothorax. No subdiaphragmatic free air identified. Mediastinum: Mediastinal contours appear normal. Heart size is normal. Bones and chest wall: No suspicious bony lesions. Overlying soft tissues appear unremarkable. IMPRESSION: Stable radiographic evaluation of the chest without acute cardiopulmonary abnormalities. Dictated by: Richardson Brown M.D. on 07/04/2018 at 14:59 Approved by: Richardson Brown M.D. on 07/04/2018 at 15:00
--- NOTE | 2018-07-04 14:14 | DI.RAD.S_ITS ---
PROCEDURE: XR KUB INDICATIONS: increased pain, sob, tachy TECHNIQUE: One view of the abdomen acquired. COMPARISON: [facility], CT, CT ABDOMEN PELVIS W CON, 07/01/2018, 7:50. [facility], US, ABDOMEN COMPLETE, 03/27/2017, 9:48. [facility], CR, XR CHEST 1V, 07/04/2018, 14:31. FINDINGS: Surgical changes and devices: None. Bowel: There are numerous air-filled loops of bowel seen throughout the upper left abdomen and extending into the lower abdomen. There is a paucity of gas in the rectum. Overall distribution and appearance is similar to the brine tank operator radiograph from CT of the abdomen/pelvis dated 07/01/18. No air-fluid levels on the upright view. No subdiaphragmatic free air. Soft tissues: No suspicious abdominal calcifications. Visualized solid organ contours appear normal in size. Bones: No suspicious bony lesions. IMPRESSION: Numerous air-filled loops of mildly distended bowel diffusely scattered in the abdomen in a similar pattern and appearance compared to brine tank operator image from CT abdomen/pelvis dated 07/01/2018. Gas pattern is nonspecific and may represent ileus versus early obstruction. Recommend continued clinical surveillance and repeat imaging as needed. Dictated by: Richardson Brown M.D. on 07/04/2018 at 14:47 Approved by: Richardson Brown M.D. on 07/04/2018 at 14:53
--- NOTE | 2018-07-04 18:39 | PC.NURSE ---
PATIENT IS BACK FROM [place] CT SCAN, x2 PERCOCETS GIVEN FOR ABD AND HEADACHE PAIN
--- NOTE | 2018-07-04 20:31 | P.HP_ITS ---
History of Present Illness Date Patient Seen: 07/02/18 Time Patient Seen: 07:30 Chief complaint: Had surgery Mon/extreme pain/hurts to breath Narrative: Patient is a 33-year-old 3 para 3 who underwent an abdominal supracervical hysterectomy with incidental appendectomy and removal of both tubes. She also had a revision of a previous Pfannenstiel scar on 06/25/2018. She went home on 06/27/2018 after routine postoperative course. She presented to the emergency department on 07/01/2018 in the evening with acute onset of abdominal pain. A CT scan revealed a large pelvic hematoma which was originally thought to be an active bleed. Sequential CT showed stable clot. Patient also had a low-grade fever on admission. No fever or chills at home. Pain was well managed until Monday. No nausea or vomiting. She was passing gas at home. Patient History Medical History Irregular menstrual cycle (Chronic ~2006) Ovarian cyst (Chronic ~2004) Painful menstrual periods (Chronic ~2009) Surgical History Anesthesia (Resolved) History of delivery (Resolved) History of laparoscopy (Resolved) History of left oophorectomy (Resolved ~2012) History of tubal ligation (Resolved) Family History (Updated 04/01/18 @ 21:40 by Teresa Cerda) Father Stroke Mother Hypertension Sister Hypertension Grandfather Cancer Hypertension Grandmother Hyperlipidemia Hypertension Social History Smoking Status: Former smoker Family & Social History Family History Father Stroke Mother Hypertension Sister Hypertension Grandfather Cancer Hypertension Grandmother Hyperlipidemia Hypertension Social History: household members spouse Prior Living Arrangements Apartment/Condo Safety & Behavioral: Feels Safe in Current Yes Environment Been Physically Hurt or No Threatened By a Person Suicidal Ideation Description None Suicide Plan Description No Plan Tobacco & Substance use: Smoking Status Former smoker alcohol intake frequency holiday/special occasion Substance Use Type does not use Meds Home Medications Medication Instructions Recorded Confirmed Type multivitamin 1 tab PO DAILY 12/29/17 07/01/18 History docusate sodium [Colace] 100 mg PO DAILY #20 cap 06/27/18 07/01/18 Rx ibuprofen 600 mg PO TID PRN #30 tab 06/27/18 07/01/18 Rx Allergies Allergy/AdvReac Type Severity Reaction Status Date / Time No Known Drug Allergies Allergy Verified 06/25/18 08:45 Exam Vital Signs (past 8 hours): - 07/04/18 12:44 07/04/18 15:38 07/04/18 19:57 Temperature 101 F H 98.5 F 99.2 F Pulse Rate 114 H 107 H 97 H Respiratory Rate 18 20 16 Blood Pressure 125/70 116/68 127/71 Pulse Oximetry 100 100 100 Oxygen Delivery Method Room Air Oxygen Flow Rate 0 Narrative Exam Narrative: Generally: A well-developed, well-nourished female, in moderate distress secondary to abdominal pain Lungs: Clear to auscultation bilaterally Cardiovascular: Regular rate and rhythm Abdomen: Soft, flat. Good bowel sounds. Diffuse tenderness on palpation. Extremities: Negative Homans, no edema Objective Labs Result Diagrams: 07/04/18 04:58 07/04/18 04:58 Labs: Laboratory Results - last 24 hr 07/04/18 07/04/18 04:58 04:58 WBC 17.6 H RBC 2.37 L Hgb 7.2 L Hct 21.4 L MCV 90.2 MCH 30.2 MCHC 33.5 RDW 12.6 Plt Count 350 Neut % (Auto) 84.0 H Lymph % (Auto) 7.6 L [place] % (Auto) 8.1 Eos % (Auto) 0.2 L Baso % (Auto) 0.1 Neut # (Auto) 11366 H Lymph # (Auto) 1300 [place] # (Auto) 1400 H Eos # (Auto) 0 Baso # (Auto) 0 Sodium 132 L Potassium 3.1 L Chloride 100 Carbon Dioxide 26 BUN 6 L Creatinine 0.60 Estimated GFR > 60.0 BUN/Creatinine Ratio 10.0 Glucose [address] scan: 15 cm hematoma in the pelvis extending up into the mid abdomen. Assessment & Plan Assessment & Plan narrative: Assessment: 33-year-old 3 para 3 with a pelvic hematoma Low-grade fever Abdominal pain Plan: Diagnostic laparoscopy with evacuation of hematoma today Time Spent With Patient Time with patient: 15-24 minutes Quality VTE Deep Vein Thrombosis/Pulmonary Embolism Present on Admission: No
--- NOTE | 2018-07-04 20:35 | PM.GYNOP.1 ---
Operative Date/Time/Diagnoses Date of procedure: 07/02/18 Time of procedure: 13:00 Pre-op diagnosis: Pelvic hematoma status post abdominal supracervical hysterectomy, bilateral salpingectomy, appendectomy, and excision of keloid scar Post-op diagnosis: same Procedure: Procedures Operation Date: 07/02/18 11:15 Actual Procedures Side Surgeon p Laparoscopy, Diagnostic-Evacuation of hematoma Not Applicable Enedina Palafox MD Indications: 15 cm pelvic hematoma Surgeon: Enedina Palafox Anesthesia Type: General Operative Notes Findings: Large clot extending from the cul-de-sac up to the umbilicus. The clot extended laterally to both ovaries. Fibrin and clot attached to the omentum. Normal ovaries bilaterally No active bleeding noted Appendiceal stump not visualized due to a fibrin and clot Closure Type: primary Specimen(s): none Estimated blood loss (mL): 700 Blood products transfused: none Procedure in detail: After informed consent was obtained, the patient was taken to the operating room where she was placed in the dorsal supine position. After adequate general endotracheal anesthesia was achieved, she was placed in the dorsal lithotomy position, and prepped and draped in the usual sterile fashion. A time-out was performed. A moistened sponge stick was placed into the vagina. Attention was then turned to the abdomen where 6 cc of 0.5% Marcaine with epinephrine were injected through the previous umbilical incision. A 5 mm incision was made. The Veress needle was placed into the peritoneal cavity, and its placement confirmed by aspiration and drop test. The abdominal cavity was insufflated with 3.2 L of CO2. The Veress needle was removed and a 5 mm trocar was placed without difficulty. initial inspection of the abdomen and pelvis revealed clot and omentum stuck to the anterior abdominal wall. 2 other incisions were made through the previous laparoscopy incisions and 2 5 mm trocars were placed under direct visualization. Using the probe and the omentum was taken down off of the anterior abdominal wall bluntly by gently sweeping across the anterior abdominal wall. There was a large amount of clot around both ovaries and in the pelvis. The pelvis was irrigated with approximately 6 L of fluid and as much clot was removed as possible. There was no active bleeding noted from the cervix, ovaries, or omentum. The appendiceal stump was difficult to visualize due to fibrin and clot surrounding. The instruments were removed from the abdomen. The CO2 was allowed to escape. The incisions were repaired with 4 0 undyed Vicryl in a subcuticular fashion. Steri-Strips, 2 x 2, and op site were placed. the moistened sponge stick was removed from the vagina. Sponge, lap, and instrument counts were correct x2. The patient tolerated the procedure well, and was taken to PACU in stable condition. Complications: none Post-operative Condition: stable Disposition: PACU Plan for aftercare: To Acute Care after recovery
--- NOTE | 2018-07-04 20:40 | PM.PNPO.1 ---
Subjective Date Patient Seen: 07/04/18 Time Patient Seen: 20:40 Interval history: Patient is a 33-year-old 3 para 3 postop day # 2 status post diagnostic laparoscopy with evacuation of pelvic hematoma. Patient is on antibiotics due to fever and elevated white count. This morning she was complaining of shortness of breath and increase in abdominal pain. she has not passed any gas since 07/02/2018 while waiting in the preop area. No nausea or vomiting. Pain is intermittently controlled with oral medication. The patient went for a CT scan at [facility] which showed no pulmonary embolus. There were air-fluid levels in the bowel. Exam Vital Signs (past 8 hours): - 07/04/18 12:44 07/04/18 15:38 07/04/18 19:57 Temperature 101 F H 98.5 F 99.2 F Pulse Rate 114 H 107 H 97 H Respiratory Rate 18 20 16 Blood Pressure 125/70 116/68 127/71 Pulse Oximetry 100 100 100 Oxygen Delivery Method Room Air Oxygen Flow Rate 0 Narrative Exam Narrative: Generally: A well-developed, well-nourished female, in mild distress due to abdominal pain. Lungs: Clear to auscultation bilaterally Cardiovascular: Tachycardic, regular rhythm. No murmurs. Abdomen: Mildly distended. Minimal bowel sounds in all 4 quadrants. Extremities: Negative Homans, no edema Objective Labs Result Diagrams: 07/04/18 04:58 07/04/18 04:58 Labs: Laboratory Results - last 24 hr 07/04/18 07/04/18 04:58 04:58 WBC 17.6 H RBC 2.37 L Hgb 7.2 L Hct 21.4 L MCV 90.2 MCH 30.2 MCHC 33.5 RDW 12.6 Plt Count 350 Neut % (Auto) 84.0 H Lymph % (Auto) 7.6 L [place] % (Auto) 8.1 Eos % (Auto) 0.2 L Baso % (Auto) 0.1 Neut # (Auto) 03728 H Lymph # (Auto) 1300 [place] # (Auto) 1400 H Eos # (Auto) 0 Baso # (Auto) 0 Sodium 132 L Potassium 3.1 L Chloride 100 Carbon Dioxide 26 BUN 6 L Creatinine 0.60 Estimated GFR > 60.0 BUN/Creatinine Ratio 10.0 Glucose 131 H Calcium 8.3 L KUB: air-fluid levels CT scan: No pulmonary embolus. 3.2 cm fluid collection near the tail of pancreas. Air-fluid levels in the bowel. Assessment & Plan Post-op Postoperative Procedures Operation Date: 07/02/18 11:15 Actual Procedures Side Surgeon p Laparoscopy, Diagnostic-Evacuation of hematoma Not Applicable Enedina Palafox MD Postoperative day: 2 Postoperative status: post-op ileus and anemia Postoperative status narrative: Patient with either postop ileus or early obstruction Postoperative hematoma, evacuated Postoperative plan narrative: General surgery consult with Dr. Baker Continue antibiotics Repeat CBC and BMP tomorrow morning Time Spent With Patient 15-24 minutes Quality VTE Deep Vein Thrombosis/Pulmonary Embolism Present on Admission: No
--- NOTE | 2018-07-04 21:21 | PM.PN.1 ---
Subjective Date Patient Seen: 07/04/18 Time Patient Seen: 21:21 Interval history: I offered to see this patient with Dr. Palafox. She is a woman who had a difficult hysterectomy and incidental appendectomy who bled postop in was re-explored to evacuate hematoma. The patient has been drinking and tolerating that well except that he she says it feels like the fluid just sits in her epigastric area after she drinks. She has had no flatus or bowel movement recently. Very uncomfortable she said on the left side. she was found to be tachycardic this morning and short of breath. She was sent for CT scan to rule out PE. Exam Vital Signs (past 8 hours): - 07/04/18 15:38 07/04/18 19:57 Temperature 98.5 F 99.2 F Pulse Rate 107 H 97 H Respiratory Rate 20 16 Blood Pressure 116/68 127/71 Pulse Oximetry 100 100 Oxygen Delivery Method Room Air Oxygen Flow Rate 0 Narrative Exam Narrative: Lungs are clear with decreased breath sounds in the bases. Heart rapid regular rate and rhythm. abdomen is distended. Mildly tender with mild palpation. Dressings are in place and intact. patient seems comfortable would not moving. Objective Labs Result Diagrams: 07/04/18 04:58 07/04/18 04:58 Labs: Laboratory Results - last 24 hr 07/04/18 07/04/18 04:58 04:58 WBC 17.6 H RBC 2.37 L Hgb 7.2 L Hct 21.4 L MCV 90.2 MCH 30.2 MCHC 33.5 RDW 12.6 Plt Count 350 Neut % (Auto) 84.0 H Lymph % (Auto) 7.6 L [place] % (Auto) 8.1 Eos % (Auto) 0.2 L Baso % (Auto) 0.1 Neut # (Auto) 89924 H Lymph # (Auto) 1300 [place] # (Auto) 1400 H Eos # (Auto) 0 Baso # (Auto) 0 Sodium 132 L Potassium 3.1 L Chloride 100 Carbon Dioxide 26 BUN 6 L Creatinine 0.60 Estimated GFR > 60.0 BUN/Creatinine Ratio 10.0 Glucose 131 H Calcium 8.3 L Assessment & Plan Assessment & Plan narrative: Patient with acute blood loss anemia that seems to have stabilized. Poor candidate for DVT prophylaxis unfortunately. She appears to at least have an ileus. Recommend NPO status. Switch her meds to IV. Do collect suppository. Repeat x-rays in the morning to see if there is a change in her bowel gas pattern. Continue IV antibiotics which were started because of the operation and elevation of her white blood cell count. Findings on the CT scan show some fluid near the tail of the pancreas. Not sure what this represents. It would be an odd placed to have fluid as the pancreas is retroperitoneal. We will send lipase and amylase to rule out pancreatitis though I do not think that is likely. The stomach is not distended on CT scanning and therefore I would not put an NG at this time. Continue observation. Labs ordered for the morning. Quality VTE Deep Vein Thrombosis/Pulmonary Embolism Present on Admission: No
--- NOTE | 2018-07-04 21:26 | P.PN_ITS ---
Subjective Date Patient Seen: 07/04/18 Time Patient Seen: 21:21 Interval history: I offered to see this patient with Dr. Palafox. She is a woman who had a difficult hysterectomy and incidental appendectomy who bled postop in was re-explored to evacuate hematoma. The patient has been drinking and tolerating that well except that he she says it feels like the fluid just sits in her epigastric area after she drinks. She has had no flatus or bowel movement recently. Very uncomfortable she said on the left side. she was found to be tachycardic this morning and short of breath. She was sent for CT scan to rule out PE. Exam Vital Signs (past 8 hours): - 07/04/18 15:38 07/04/18 19:57 Temperature 98.5 F 99.2 F Pulse Rate 107 H 97 H Respiratory Rate 20 16 Blood Pressure 116/68 127/71 Pulse Oximetry 100 100 Oxygen Delivery Method Room Air Oxygen Flow Rate 0 Narrative Exam Narrative: Lungs are clear with decreased breath sounds in the bases. Heart rapid regular rate and rhythm. abdomen is distended. Mildly tender with mild palpation. Dressings are in place and intact. patient seems comfortable would not moving. Objective Labs Result Diagrams: 07/04/18 04:58 07/04/18 04:58 Labs: Laboratory Results - last 24 hr 07/04/18 07/04/18 04:58 04:58 WBC 17.6 H RBC 2.37 L Hgb 7.2 L Hct 21.4 L MCV 90.2 MCH 30.2 MCHC 33.5 RDW 12.6 Plt Count 350 Neut % (Auto) 84.0 H Lymph % (Auto) 7.[address] [place] % (Auto) 8.1 Eos % (Auto) 0.2 L Baso % (Auto) 0.1 Neut # (Auto) 42189 H Lymph # (Auto) 1300 [place] # (Auto) 1400 H Eos # (Auto) 0 Baso # (Auto) 0 Sodium 132 L Potassium 3.1 L Chloride 100 Carbon Dioxide 26 BUN 6 L Creatinine 0.60 Estimated GFR > 60.0 BUN/Creatinine Ratio 10.0 Glucose 131 H Calcium 8.3 L Assessment & Plan Assessment & Plan narrative: Patient with acute blood loss anemia that seems to have stabilized. Poor candidate for DVT prophylaxis unfortunately. She appears to at least have an ileus. Recommend NPO status. Switch her meds to IV. Do collect suppository. Repeat x-rays in the morning to see if there is a change in her bowel gas pattern. Continue IV antibiotics which were started because of the operation and elevation of her white blood cell count. Findings on the CT scan show some fluid near the tail of the pancreas. Not sure what this represents. It would be an odd placed to have fluid as the pancreas is retroperitoneal. We will send lipase and amylase to rule out pancreatitis though I do not think that is likely. The stomach is not distended on CT scanning and therefore I would not put an NG at this time. Continue observation. Labs ordered for the morning. Quality VTE Deep Vein Thrombosis/Pulmonary Embolism Present on Admission: No
[2018-07-04] MEDS: POTASSIUM CHLORIDE 40 MEQ in SODIUM CHLORIDE 0.9% 500 ML 130 ML IV (23:25)
[2018-07-05] VITALS (12 sets, daily range): BP systolic 119–142; BP diastolic 68–88; PULSE 84–107; RESP 14–18; TEMP 36.8–37.8; O2SAT 98–100
[2018-07-05] MEDS: KETOROLAC 30 MG/ML VIAL IV ×3 (01:36→17:09)
[2018-07-05] MEDS: AMPICILLIN/SULBACTAM 1.5 GM 1.5 GM in SODIUM CHLORIDE 0.9% 100 ML IV ×4 (04:48→23:33)
[2018-07-05 05:18] LABS: Amylase 36 U/L (30-110); HEMOLYSIS < 15 (0-50); Lipase 13 U/L (23-300); Potassium 3.9 mmol/L (3.4-5.1)
[2018-07-05 05:19] LABS: Blood Urea Nitrogen 7 mg/dL (7-17); Calcium 7.7 mg/dL (8.4-10.2); Carbon Dioxide 24 mmol/L (22-32); Chloride 107 mmol/L (98-107); Estimated Glomerular Filt Rate > 60.0 mL/min (>60); Glucose 95 mg/dL (70-100); Sodium 135 mmol/L (137-145)
[2018-07-05] MEDS: BISACODYL 10 MG SUPP PR (05:38)
[2018-07-05 06:03] LABS: Basophils Absolute Auto 100 /uL (0-100); Basophils Percent Auto 0.5 % (0-2); Eosinophils Absolute Auto 200 /uL (0-450); Eosinophils Percent Auto 1.2 % (2-4); Lymphocytes Absolute Auto 1700 /uL (1100-4500); Lymphocytes Percent Auto 12.9 % (25-40); Mean Corpuscular HGB Conc 33.4 % (30-36); Mean Corpuscular Hemoglobin 30.1 PG (26-34); Mean Corpuscular Volume 90.2 fL (80-100); Monocytes Absolute Auto 1400 /uL (0-900); Monocytes Percent Auto 10.1 % (3-14); Neutrophils Absolute Auto 10100 /uL (1500-7000); Neutrophils Percent Auto 75.3 % (50-75); Platelet Count 309 X10^3/uL (150-400); Red Blood Cell Count 1.96 X10^6/uL (4.0-5.2); Red Cell Distribution Width 12.6 % (11.6-14.8); White Blood Cell Count 13.4 X10^3/uL (4.5-11.0)
[2018-07-05 06:13] LABS: Hemoglobin 5.9 g/dL (12.0-16.0)
[2018-07-05 06:14] LABS: Add Manual Diff / Slide Review SLIDE REVIEW; Hematocrit 17.7 % (36-46)
[2018-07-05] MEDS: metroNIDAZOLE 500 MG/100 ML PIGGYBACK 100 MG IV ×3 (06:32→21:57)
[2018-07-05 06:40] LABS: Hypochromasia 1+
--- NOTE | 2018-07-05 07:00 | DI.RAD.S_ITS ---
PROCEDURE: XR ACUTE ABDOMEN SERIES INDICATIONS: Follow-up possible ileus versus SBO TECHNIQUE: One view chest and two views of the abdomen were acquired. COMPARISON: [facility], CR, XR KUB, 07/04/2018, 14:31. FINDINGS: Surgical changes and devices: None. Chest: Lungs are clear. Heart size is normal. No pleural effusions. No pneumoperitoneum. Abdomen: Bowel gas pattern is normal. No suspicious calcifications. Visualized solid organ contours appear normal. Bones: No suspicious bony lesions. IMPRESSION: Nonspecific bowel gas pattern, without plain film evidence of intestinal obstruction or perforation. Several mildly prominent left upper quadrant small bowel loops have diminished in size to a normal caliber. Dictated by: Munir Padilla M.D. on 07/05/2018 at 12:15 Approved by: Munir Padilla M.D. on 07/05/2018 at 12:16
[2018-07-05] MEDS: DEXTROSE 5%-0.9% NS 1,000 ML 150 ML IV ×2 (09:57→21:46)
[2018-07-05] MEDS: ONDANSETRON 4 MG/2 ML INJ IV (14:44)
[2018-07-06] VITALS (7 sets, daily range): BP systolic 125–134; BP diastolic 73–85; PULSE 81–91; RESP 14–18; TEMP 36.4–37.3; O2SAT 99–100
[2018-07-06] MEDS: ONDANSETRON 4 MG/2 ML INJ IV (03:41)
[2018-07-06] MEDS: AMPICILLIN/SULBACTAM 1.5 GM 1.5 GM in SODIUM CHLORIDE 0.9% 100 ML IV ×4 (04:55→22:00)
[2018-07-06] MEDS: DEXTROSE 5%-0.9% NS 1,000 ML 150 ML IV ×2 (05:24→16:42)
[2018-07-06] MEDS: HYDROMORPHONE 1 MG INJ IV ×3 (05:24→22:05)
[2018-07-06 05:33] LABS: Add Manual Diff / Slide Review NO; Basophils Absolute Auto 100 /uL (0-100); Basophils Percent Auto 0.4 % (0-2); Eosinophils Absolute Auto 200 /uL (0-450); Eosinophils Percent Auto 1.2 % (2-4); Hematocrit 25.4 % (36-46); Hemoglobin 8.6 g/dL (12.0-16.0); Lymphocytes Absolute Auto 1600 /uL (1100-4500); Lymphocytes Percent Auto 11.1 % (25-40); Mean Corpuscular HGB Conc 33.9 % (30-36); Mean Corpuscular Hemoglobin 29.6 PG (26-34); Mean Corpuscular Volume 87.5 fL (80-100); Monocytes Absolute Auto 1700 /uL (0-900); Monocytes Percent Auto 11.6 % (3-14); Neutrophils Absolute Auto 11100 /uL (1500-7000); Neutrophils Percent Auto 75.7 % (50-75); Platelet Count 360 X10^3/uL (150-400); Red Blood Cell Count 2.91 X10^6/uL (4.0-5.2); Red Cell Distribution Width 13.9 % (11.6-14.8); White Blood Cell Count 14.7 X10^3/uL (4.5-11.0)
[2018-07-06 05:45] LABS: Blood Urea Nitrogen 8 mg/dL (7-17); Carbon Dioxide 22 mmol/L (22-32); Chloride 106 mmol/L (98-107); Estimated Glomerular Filt Rate > 60.0 mL/min (>60); Glucose 108 mg/dL (70-100); HEMOLYSIS < 15 (0-50); Potassium 3.4 mmol/L (3.4-5.1); Sodium 135 mmol/L (137-145)
[2018-07-06] MEDS: metroNIDAZOLE 500 MG/100 ML PIGGYBACK 100 MG IV ×3 (06:02→20:54)
--- NOTE | 2018-07-06 08:08 | P.PN_ITS ---
Subjective Date Patient Seen: 07/05/18 Time Patient Seen: 17:30 Interval history: Patient had a bowel movement and passed a large amount of gas this morning. No nausea or vomiting. Pain markedly improved. She received 2 units of blood this morning for a hematocrit dropping to 17. She is receiving ice chips. She is tolerating them well. Exam Vital Signs (past 8 hours): - 07/06/18 00:26 07/06/18 04:00 07/06/18 07:26 Temperature 99.1 F 98.1 F 99.1 F Pulse Rate 91 H 91 H 88 Respiratory Rate 18 18 16 Blood Pressure 134/73 133/74 128/73 Pulse Oximetry 100 99 99 Oxygen Delivery Method Room Air Oxygen Flow Rate 0 Narrative Exam Narrative: Generally: Patient is sitting up in bed, no acute distress Lungs: Clear to auscultation bilaterally Cardiovascular: Regular rate and rhythm Abdomen: Soft and flat. Good bowel sounds in all 4 quadrants Incisions: Clean dry and intact Extremities: SCDs in place Objective Labs Result Diagrams: 07/06/18 05:25 07/06/18 05:25 Labs: Laboratory Results - last 24 hr 07/01/18 07/06/18 07/06/18 10:35 05:25 05:25 WBC 14.7 H RBC 2.91 L Hgb 8.6 L Hct 25.4 L MCV 87.5 MCH 29.6 MCHC 33.9 RDW 13.9 Plt Count 360 Neut % (Auto) 75.7 H Lymph % (Auto) 11.1 L [place] % (Auto) 11.6 Eos % (Auto) 1.2 L Baso % (Auto) 0.4 Neut # (Auto) 92808 H Lymph # (Auto) 1600 [place] # (Auto) 1700 H Eos # (Auto) 200 Baso # (Auto) 100 Sodium 135 L Potassium 3.4 Chloride 106 Carbon Dioxide 22 BUN 8 Creatinine 0.40 L Estimated GFR > 60.0 BUN/Creatinine Ratio 20.0 Glucose 108 H Calcium 8.0 L Blood Type O Positive Antibody Screen Negative Crossmatch See Detail Assessment & Plan Post-op Postoperative Procedures Operation Date: 07/02/18 11:15 Actual Procedures Side Surgeon p Laparoscopy, Diagnostic-Evacuation of hematoma Not Applicable Enedina Palafox MD Postoperative day: 3 Postoperative status: post-op ileus Postoperative status narrative: Postoperative bleed with evacuation of hematoma 3 days ago Postop ileus Postoperative plan: advance diet Postoperative plan narrative: Advanced diet per General surgery Anticipate discharge 07/07 or 07/08/2018 Quality VTE Deep Vein Thrombosis/Pulmonary Embolism Present on Admission: No
--- NOTE | 2018-07-06 11:53 | PM.PNPO.1 ---
Subjective Date Patient Seen: 07/06/18 Time Patient Seen: 07:35 Interval history: Patient is a 33-year-old who underwent a diagnostic laparoscopy with evacuation of hematoma on 07/02/2018. She underwent her primary surgery on 07/05/2018 which included an abdominal supracervical hysterectomy, bilateral salpingectomy, appendectomy, and extensive lysis of adhesions on07/02/2018. She developed a subsequent ileus. This is resolving. She received a blood transfusion of 2 units of packed red blood cells yesterday morning. Exam Vital Signs (past 8 hours): - 07/06/18 04:00 07/06/18 07:26 07/06/18 11:18 Temperature 98.1 F 99.1 F 98.4 F Pulse Rate 91 H 88 85 Respiratory Rate 18 16 14 Blood Pressure 133/74 128/73 134/81 Pulse Oximetry 99 99 100 Oxygen Delivery Method Room Air Oxygen Flow Rate 0 Narrative Exam Narrative: Generally: Patient is sitting up in bed, drinking clear liquids, no acute distress Lungs: Clear to auscultation bilaterally Cardiovascular: Regular rate and rhythm Abdomen: Soft, flat, good bowel sounds in all 4 quadrants. No guarding or rebound tenderness. Extremities: SCDs in place Objective Labs Result Diagrams: 07/06/18 05:25 07/06/18 05:25 Labs: Laboratory Results - last 24 hr 07/01/18 07/06/18 07/06/18 10:35 05:25 05:25 WBC 14.7 H RBC 2.91 L Hgb 8.6 L Hct 25.4 L MCV 87.5 MCH 29.6 MCHC 33.9 RDW 13.9 Plt Count 360 Neut % (Auto) 75.7 H Lymph % (Auto) 11.1 L [place] % (Auto) 11.6 Eos % (Auto) 1.2 L Baso % (Auto) 0.4 Neut # (Auto) 95980 H Lymph # (Auto) 1600 [place] # (Auto) 1700 H Eos # (Auto) 200 Baso # (Auto) 100 Sodium 135 L Potassium 3.4 Chloride 106 Carbon Dioxide 22 BUN 8 Creatinine 0.40 L Estimated GFR > 60.0 BUN/Creatinine Ratio 20.0 Glucose 108 H Calcium 8.0 L Blood Type O Positive Antibody Screen Negative Crossmatch See Detail Assessment & Plan Post-op Postoperative Procedures Operation Date: 07/02/18 11:15 Actual Procedures Side Surgeon p Laparoscopy, Diagnostic-Evacuation of hematoma Not Applicable Enedina Palafox MD Postoperative day: 4 Postoperative status: post-op ileus Postoperative status narrative: Postoperative bleed requiring evacuation of pelvic hematoma Postop ileus, resolving Fever, resolved Postoperative plan: advance diet Postoperative plan narrative: Advanced diet today Anticipate discharge 07/07/2018 Time Spent With Patient 15-24 minutes Quality VTE Deep Vein Thrombosis/Pulmonary Embolism Present on Admission: No
--- NOTE | 2018-07-06 12:00 | P.DS_ITS ---
History of Present Illness Date Patient Seen: 07/06/18 Time Patient Seen: 07:45 Chief complaint: Had surgery Mon/extreme pain/hurts to breath Narrative: Patient is a 33-year-old 3 para 3 who underwent an abdominal supracervical hysterectomy with incidental appendectomy and removal of both tubes. She also had a revision of a previous Pfannenstiel scar on 06/25/2018. She went home on 06/27/2018 after routine postoperative course. She presented to the emergency department on 07/01/2018 in the evening with acute onset of abdominal pain. A CT scan revealed a large pelvic hematoma which was originally thought to be an active bleed. Sequential CT showed stable clot. Patient also had a low-grade fever on admission. No fever or chills at home. Pain was well managed until Monday. No nausea or vomiting. She was passing gas at home. Discharge Providers Date of admission: 07/01/18 11:53 Discharge Date: 07/06/18 Primary care physician: Torie Bustillo DO Discharge provider: Enedina Palafox MD Summary Discharge Diagnosis: Left pyelonephritis Hospital Course: Patient was admitted on 07/03/2018 after a scheduled office visit postoperatively. She she was found to have a left pyelonephritis and was unable to keep down the antibiotics. She was started on IV antibiotics, antiemetics, and Pyridium. Her nausea resolved on hospital day # 1, her nausea resolved on hospital day # 3. Status at Discharge Cognitive/behavioral status at discharge: oriented Functional status at discharge: independent ambulation Overall status at discharge: patient is progressing back to baseline Time Spent with Patient Less than 30 minutes Exam Vital Signs (past 8 hours): - 07/06/18 04:00 07/06/18 07:26 07/06/18 11:18 Temperature 98.1 F 99.1 F 98.4 F Pulse Rate 91 H 88 85 Respiratory Rate 18 16 14 Blood Pressure 133/74 128/73 134/81 Pulse Oximetry 99 99 100 Oxygen Delivery Method Room Air Oxygen Flow Rate 0 Narrative Exam Narrative: Generally: Patient lying on right side, no acute distress Back: Slight left CVA tenderness Lungs: Clear to auscultation bilaterally Cardiovascular: Regular rate and rhythm Abdomen: Well-healed scars. Objective Labs Result Diagrams: 07/06/18 05:25 07/06/18 05:25 Labs: Laboratory Results - last 24 hr 07/01/18 07/06/18 07/06/18 10:35 05:25 05:25 WBC 14.7 H RBC 2.91 L Hgb 8.6 L Hct 25.4 L MCV 87.5 MCH 29.6 MCHC 33.9 RDW 13.9 Plt Count 360 Neut % (Auto) 75.7 H Lymph % (Auto) 11.1 L [place] % (Auto) 11.6 Eos % (Auto) 1.2 L Baso % (Auto) 0.4 Neut # (Auto) 90983 H Lymph # (Auto) 1600 [place] # (Auto) 1700 H Eos # (Auto) 200 Baso # (Auto) 100 Sodium 135 L Potassium 3.4 Chloride 106 Carbon Dioxide 22 BUN 8 Creatinine 0.40 L Estimated GFR > 60.0 BUN/Creatinine Ratio 20.0 Glucose 108 H Calcium 8.0 L Blood Type O Positive Antibody Screen Negative Crossmatch See Detail Discharge Plan Discharge Plan Patient Disposition: Home Discharge Med Rec/Prescriptions Prescriptions: Continued multivitamin Capsule 1 tab PO DAILY RF: 0 docusate sodium [Colace] 100 mg capsule 100 mg PO DAILY Qty: 20 RF: 0 ibuprofen 600 mg tablet 600 mg PO TID PRN (Reason: pain) Qty: 30 RF: 0 Discontinued oxycodone-acetaminophen [Percocet] 5-325 mg tablet 1 tab PO Q4-6H PRN (Reason: pain) Qty: 30 RF: 0 Follow up/Referrals: Enedina Palafox MD [Physician] - 6 Weeks () Provider Discharge Instructions Diet: Regular Skin/Wound/Dressing Care Report to your healthcare provider any signs of infection, such as:: chills, fever, increased pain and unusual drainage Visit Report/Discharge Packet Instructions: Illness Anxiety Disorder, DI for Laparoscopy Discharge Data Primary Care Provider: Torie Bustillo Attending Provider: Enedina Palafox Admit Date/Time: 07/01/18 11:53 Quality VTE Deep Vein Thrombosis/Pulmonary Embolism Present on Admission: No
--- NOTE | 2018-07-06 14:47 | PC.NURSE ---
Post-op: Feels much improved after receiving blood. Not tachy like she was yesterday, heart rate 80's today, yesterday 100's to 120's. Pt reported yesterday she could feel her heart racing at times. Has been up in the room and taken shower. Dreesings to upper abd were changed to coversites and are clean/dry. Has a flight to see her family in [place] on the , she was asking if it was okay to do so. Dr. Baker said it was okay from their standpoint but to clear same with Dr. Palafox, pt made aware. dr Palafox is gone for today/week-end and pt hopes to d/c home this weekend, she can call the office on monday. Pt has been passing flatus and eaten some food, was feeling a little anxious about eating but after speaking w/md she did eat a little lunch. Resting quietly at the moment. Cont w/poc.
[2018-07-06] MEDS: KETOROLAC 30 MG/ML VIAL IV (22:00)
[2018-07-07] MEDS: DEXTROSE 5%-0.9% NS 1,000 ML 150 ML IV (02:36)
[2018-07-07 04:30] VITALS: BP 139/89; PULSE 91; RESP 18; TEMP 37.2; O2SAT 100
[2018-07-07] MEDS: HYDROMORPHONE 1 MG INJ IV (04:31)
[2018-07-07] MEDS: AMPICILLIN/SULBACTAM 1.5 GM 1.5 GM in SODIUM CHLORIDE 0.9% 100 ML IV ×2 (04:32→10:38)
[2018-07-07] MEDS: KETOROLAC 30 MG/ML VIAL IV (04:32)
[2018-07-07] MEDS: metroNIDAZOLE 500 MG/100 ML PIGGYBACK 100 MG IV (05:52)
[2018-07-07 05:56] LABS: Add Manual Diff / Slide Review NO; Basophils Absolute Auto 0 /uL (0-100); Basophils Percent Auto 0.3 % (0-2); Eosinophils Absolute Auto 300 /uL (0-450); Eosinophils Percent Auto 1.9 % (2-4); Hemoglobin 7.9 g/dL (12.0-16.0); Lymphocytes Absolute Auto 1600 /uL (1100-4500); Mean Corpuscular HGB Conc 33.3 % (30-36); Mean Corpuscular Hemoglobin 29.2 PG (26-34); Mean Corpuscular Volume 87.6 fL (80-100); Monocytes Absolute Auto 2000 /uL (0-900); Monocytes Percent Auto 14.9 % (3-14); Neutrophils Absolute Auto 9600 /uL (1500-7000); Neutrophils Percent Auto 70.9 % (50-75); Platelet Count 352 X10^3/uL (150-400); Red Cell Distribution Width 13.6 % (11.6-14.8); White Blood Cell Count 13.5 X10^3/uL (4.5-11.0)
[2018-07-07 06:05] LABS: Hematocrit 23.7 % (36-46)
[2018-07-07 07:36] VITALS: BP 123/78; PULSE 75; RESP 14; TEMP 36.3; O2SAT 99
[2018-07-07] MEDS: ONDANSETRON 4 MG/2 ML INJ IV (09:46)
--- NOTE | 2018-07-07 10:55 | P.PN_ITS ---
Subjective Date Patient Seen: 07/07/18 Time Patient Seen: 10:49 Interval history: Patient was admitted for postoperative pain, ileus, and pelvic hematoma. She underwent a laparoscopy with drainage of the hematoma. She received 2 units of packed red blood cells and antibiotics for elevated white blood cell count. Patient is ambulatory. Passing gas and positive bowel movements x2. Although she did have some nausea with small amount of emesis this morning. Her nausea has since passed. Patient does not want to remain in the hospital and feels she is ready to go home. She is ambulatory. Her pain is much improved. Exam Vital Signs (past 8 hours): - 07/07/18 04:30 07/07/18 07:36 Temperature 99 F 97.4 F L Pulse Rate 91 H 75 Respiratory Rate 18 14 Blood Pressure 139/89 123/78 Pulse Oximetry 100 99 Oxygen Delivery Method Room Air Oxygen Flow Rate 0 Narrative Exam Narrative: Patient's abdomen is soft, with marked decrease in tenderness from yesterday. Her dressings are clean dry, and intact. Extremities without edema and nontender. Objective Labs Result Diagrams: 07/07/18 05:31 07/06/18 05:25 Labs: Laboratory Results - last 24 hr 07/07/18 05:31 WBC 13.5 H RBC 2.70 L Hgb 7.9 L Hct 23.7 L MCV 87.6 MCH 29.2 MCHC 33.3 RDW 13.6 Plt Count 352 Neut % (Auto) 70.9 Lymph % (Auto) 12.0 L [place] % (Auto) 14.9 H Eos % (Auto) 1.9 L Baso % (Auto) 0.3 Neut # (Auto) 9600 H Lymph # (Auto) 1600 [place] # (Auto) 2000 H Eos # (Auto) 300 Baso # (Auto) 0 Assessment & Plan (1) Post-operative hemorrhage: Problem details: Patient's postoperative hematocrit has stabilized after transfusion of 2 units of red blood cells. Qualifiers: Laterality: Procedure type: Surgical complication system/body Area: Current visit: Yes Status: Acute (2) Ileus, postoperative: Problem details: Ileus has resolved with the patient having bowel movements and passing gas without difficulty. Current visit: Yes Status: Acute (3) Other postoperative infection: Problem details: Patient has remained afebrile in the hospital and her white blood cell count is decreasing. Current visit: Yes Status: Acute Quality VTE Deep Vein Thrombosis/Pulmonary Embolism Present on Admission: No
[2018-07-07 11:50] VITALS: BP 140/84; PULSE 80; RESP 16; TEMP 37.6; O2SAT 99
--- NOTE | 2018-07-07 13:38 | PC.NURSE ---
Pt dressed and ready for discharge home with Spouse. Discharge meds and instructions reviewed. Pt aware that she is to report s/s of infection if they occur. Pt reviewed stroke education. Pt denies further questions and is ready to be taken out via w/c to POV with Spouse and all belongings.
--- NOTE | 2018-07-07 15:38 | CM.DPC ---
DCP: continued: Case received and EMR for last few days reviewed. Discussed in Team Rounds. Noted that Dr. Baker did consult on 07/04 and gave some suggestions to Dr. Palafox re the POC. Dr. Wilson saw pt today, pt expressed strong desire to go home and as she was improving and mobilizing well Dr. Wilson did put in the d/c order. Went to room to check in...Pt has already left for home with her after going over the d/c details with INGA Odell.
--- NOTE | 2018-07-24 06:58 | P.DS_ITS ---
History of Present Illness Date Patient Seen: 07/07/18 Time Patient Seen: 09:30 Chief complaint: Had surgery Mon/extreme pain/hurts to breath Narrative: Patient is a 33-year-old who was admitted through the ER on 07/01/2018 several days after she was discharged from the hospital from an abd ominal supracervical hysterectomy. She complained of acute onset of abdominal pain. A CT scan revealed a large pelvic hematoma which was initially thought to be an active bleed. Sequential CT showed a stable clot. She underwent a diagnostic laparoscopy with evacuation of the hematoma on 07/02/2018 without complication. The remainder of her hospital course was related to return of bowel function Discharge Providers Date of admission: 07/01/18 11:53 Discharge Date: 07/07/18 Primary care physician: Torie Bustillo DO Discharge provider: Enedina Palafox MD Summary Discharge Diagnosis: Postoperative pelvic hematoma Postoperative ileus Hospital Course: The patient was admitted on 07/01/2018 through the emergency department where she presented with acute onset of abdominal pain. A CT scan showed a large pelvic hematoma. Initially this was thought to be an active bleed but sequential CT scan showed a stable clots. She was taken to surgery on 07/02/2018 for a diagnostic laparoscopy and evacuation of hematoma there were no complications. her postoperative course was mostly related to a postop ileus which finally resolved on 07/06/2018. The patient was discharged home on 07/07/2018. She was not antibiotics during the hospital course. Status at Discharge Cognitive/behavioral status at discharge: oriented Functional status at discharge: independent ambulation Overall status at discharge: patient is progressing back to baseline Time Spent with Patient Less than 30 minutes Exam Vital Signs (past 8 hours): Oxygen Delivery Method Room Air Oxygen Flow Rate 0 Narrative Exam Narrative: Generally: Patient is sitting up in bed, no acute distress Lungs: Clear to auscultation bilaterally Cardiovascular: Regular rate and rhythm Abdomen: Soft and flat. Good bowel sounds in all 4 quadrants. Incisions: Clean dry and intact with op sites. The Pfannenstiel incision is healing well. Extremities: Negative Homans, no edema Objective Labs Result Diagrams: 07/07/18 05:31 07/06/18 05:25 Discharge Plan Discharge Plan Patient Disposition: Home Discharge Med Rec/Prescriptions Prescriptions: New oxycodone-acetaminophen 5-325 mg tablet 1 tab PO Q4-6H PRN (Reason: pain) Qty: 20 RF: 0 ferrous gluconate 324 mg (37.5 mg iron) tablet 324 mg PO DAILY Qty: 30 RF: 1 Continued multivitamin Capsule 1 tab PO DAILY RF: 0 ibuprofen 600 mg tablet 600 mg PO TID PRN (Reason: pain) Qty: 30 RF: 0 docusate sodium [Colace] 100 mg capsule 100 mg PO DAILY Qty: 20 RF: 0 Discontinued oxycodone-acetaminophen [Percocet] 5-325 mg tablet 1 tab PO Q4-6H PRN (Reason: pain) Qty: 30 RF: 0 No Action potassium chloride 1 dose PO DAILY RF: 0 Follow up/Referrals: Enedina Palafox MD [Physician] - 1 Week () Provider Discharge Instructions Diet: Regular Skin/Wound/Dressing Care Report to your healthcare provider any signs of infection, such as:: chills, fever, increased pain and unusual drainage Dressing: may remove bandaids, leave steristrips in place can get wet just pat dry Visit Report/Discharge Packet Instructions: Illness Anxiety Disorder, DI for Laparoscopy, DI for Post- Surgical Bleeding Discharge Data Primary Care Provider: Torie Bustillo Attending Provider: Enedina Palafox Admit Date/Time: 07/01/18 11:53 Discharges patient from system. Discharge Date/Time: 07/07/18 14:06 Quality VTE Deep Vein Thrombosis/Pulmonary Embolism Present on Admission: No
== END 2018-07-07 14:06 | disposition home or self-care (01) | DRG 908 ==
LOC: ED 07:36 → AC 12:37
PROVIDERS: Emergency Medicine; Specialist; Admitting Provider Obstetrics & Gynecology; Emergency Provider Emergency Medicine; PCP Family Medicine; Visit Provider Obstetrics & Gynecology
PROC: 0WCJ4ZZ Extirpation of Matter from Pelvic Cavity, Percutaneous Endoscopic Approach (ICD-10-PCS; CPT 49320; principal; 2018-07-02 11:15)
DX: N99.840 Postprocedural hematoma of a genitourinary system organ or structure following a genitourinary system procedure (principal); D62 Acute posthemorrhagic anemia; K56.7 Ileus, unspecified; R50.82 Postprocedural fever
CPT/HCPCS: 36415; 36430; 36591; 71045; 74018; 74022; 74177; 76830; 76856; 76857; 80048; 80053; 81003; 82150; 83690; 85014; 85018; 85025; 86850; 86900; 86901; 93005; 93010; 96361; 96374; 96375; 96376; 99283; 99285; P9016; J0295; J0690; J1170; J1885; J2270; J2405; J2765; J3010; J3480; Q9967

== ENCOUNTER 2018-07-07 15:15 | Emergency (ER) | payer OTHER, SELFPAY ==
[2018-07-01 12:00] VITALS: BMI 22.2
[2018-07-07 15:33] VITALS: BP 150/79; PULSE 87; RESP 15; TEMP 36.6; O2SAT 100; BMI 21.2
[2018-07-07] MEDS: ONDANSETRON 4 MG ODT SL (15:40)
[2018-07-07 17:01] VITALS: BP 152/87; PULSE 95; RESP 22; O2SAT 100
--- NOTE | 2018-07-07 18:09 | ED_ITS ---
HPI - Nausea/Vomiting/Diarrhea General Chief complaint: Nausea/Vomiting/Diarrhea Stated complaint: just discharged from here, now vomiting Time Seen by Provider: 07/07/18 17:27 Source: patient Mode of arrival: ambulatory Limitations: no limitations History of Present Illness HPI Narrative: 33-year-old female who is just discharged from the hospital today after spending several days for postoperative complications returns to the emergency department today for nausea and vomiting. She states she was having some nausea vomiting prior to discharge and was given a prescription for nausea medicine that starts with an M. I suspect that this is metoclopramide. She states this medication is not working for her. She reports no other new symptoms just that she could not tolerate any oral intake. Related Data Home Medications Medication Instructions Recorded Confirmed multivitamin 1 tab PO DAILY 12/29/17 07/01/18 Previous Rx's Medication Instructions Recorded ibuprofen 600 mg PO TID PRN #30 tab 06/27/18 amoxicillin-pot clavulanate 1 tab PO BID #14 tab 07/07/18 docusate sodium [Colace] 100 mg PO DAILY #20 cap 07/07/18 ferrous gluconate 324 mg PO DAILY #30 tab 07/07/18 metoclopramide HCl [Reglan] 10 mg PO Q6H PRN #10 tab 07/07/18 metronidazole 500 mg PO BID #14 tab 07/07/18 ondansetron 4 mg PO Q6-8H PRN #14 tab 07/07/18 oxycodone-acetaminophen 1 tab PO Q4-6H PRN #20 tab 07/07/18 potassium chloride 40 meq PO .Once #2 tab 07/07/18 Allergies Allergy/AdvReac Type Severity Reaction Status Date / Time No Known Drug Allergies Allergy Verified 07/07/18 15:33 Review of Systems Constitutional Denies fever(s) Cardiovascular Denies chest pain and Denies dyspnea Respiratory Denies dyspnea Gastrointestinal Gastrointestinal: Reports abdominal pain, Reports nausea and Reports vomiting Genitourinary Denies dysuria Musculoskeletal Denies arthralgias Neurologic Denies behavioral changes Psychiatric Denies behavioral changes FOR[facility] Medical History Irregular menstrual cycle (Chronic ~2006) Ovarian cyst (Chronic ~2004) Painful menstrual periods (Chronic ~2009) Surgical History Anesthesia (Resolved) History of delivery (Resolved) History of laparoscopy (Resolved) History of left oophorectomy (Resolved ~2012) History of tubal ligation (Resolved) Family History Father Stroke Mother Hypertension Sister Hypertension Grandfather Cancer Hypertension Grandmother Hyperlipidemia Hypertension Social History household members: spouse Smoking Status: Former smoker Family History Father Stroke Mother Hypertension Sister Hypertension Grandfather Cancer Hypertension Grandmother Hyperlipidemia Hypertension Social History household members: spouse Smoking Status: Former smoker Exam Initial Vital Signs Initial Vital Signs: Vital Signs Temperature 97.9 F 07/07/18 15:33 Pulse Rate 87 07/07/18 15:33 Respiratory Rate 15 07/07/18 15:33 Blood Pressure 150/79 H 07/07/18 15:33 Pulse Oximetry 100 07/07/18 15:33 Const General: cooperative, well developed, well groomed and No acute distress Orientation: alert, awake and oriented x3 HENMT Head: normal to inspection and normocephalic Resp Effort & Inspection: normal respiratory effort Auscultation: clear to auscultation bilaterally Cardio Rate: regular rate Rhythm: regular rhythm GI Inspection: non-distended Palpation: soft Skin Lesions: no lesions Rashes: no rashes Neuro General: alert, awake and oriented x3 Cognition: normal cognition Speech: speech normal Psych Appearance: grossly normal and well kempt Course Orders Ordered: ED Orders 07/07/18 18:15 Complete Blood Count AUTO DIFF Stat Comprehensive Metabolic Panel Stat Discontinued Medications Morphine Sulfate (Morphine) 2 mg IV NOW ONE Stop: 07/07/18 17:45 Last Admin: 07/07/18 18:10 Dose: 2 mg Ondansetron HCl (Zofran Odt) 4 mg SL NOW ONE Stop: 07/07/18 15:38 Last Admin: 07/07/18 15:40 Dose: 4 mg Ondansetron HCl (Zofran) 4 mg IV NOW ONE Stop: 07/07/18 17:43 Last Admin: 07/07/18 18:10 Dose: 4 mg Vital Signs - 8 hr 07/07/18 19:08 07/07/18 20:24 Pulse Rate 80 76 Respiratory Rate 18 16 Blood Pressure 142/79 H Blood Pressure [Left Arm] 146/86 H Pulse Oximetry 98 100 MDM - Nausea/Vomiting/Diarrhea Lab Data Attestation: I reviewed the patient's lab results. Result diagrams: 07/07/18 18:15 07/07/18 18:15 Lab Results 07/07/18 07/07/18 Range/Units 18:15 18:15 WBC 16.0 H (4.5-11.0) X10^3/uL RBC 2.96 L (4.0-5.2) X10^6/uL Hgb 8.7 L (12.0-16.0) g/dL Hct 26.2 L (36-46) % MCV 88.5 (80-100) fL MCH 29.2 (26-34) PG MCHC 33.0 (30-36) % RDW 13.5 (11.6-14.8) % Plt Count 442 H (150-400) X10^3/uL Neut % (Auto) 75.7 H (50-75) % Lymph % (Auto) 10.9 L (25-40) % [place] % (Auto) 12.5 (3-14) % Eos % (Auto) 0.5 L (2-4) % Baso % (Auto) 0.4 (0-2) % Neut # (Auto) 56407 H (6317-8474) /uL Lymph # (Auto) 1700 (6083-4881) /uL [place] # (Auto) 2000 H (0-900) /uL Eos # (Auto) 100 (0-450) /uL Baso # (Auto) 100 (0-100) /uL Sodium 134 L (137-145) mmol/L Potassium 2.9 L (3.4-5.1) mmol/L Chloride 101 (98-107) mmol/L Carbon Dioxide 25 (22-32) mmol/L BUN 3 L (7-17) mg/dL Creatinine 0.40 L (0.52-1.04) mg/dL Estimated GFR > 60.0 (>60) mL/min BUN/Creatinine Ratio 7.5 (6-22) Glucose 85 (70-100) mg/dL Calcium 8.1 L (8.4-10.2) mg/dL Total Bilirubin 0.5 (0.2-1.3) mg/dL AST 21 (14-36) IU/L ALT 24 (9-52) IU/L Alkaline Phosphatase 68 (38-126) U/L Total Protein 6.0 L (6.3-8.2) g/dL Albumin 2.9 L (3.5-5.0) g/dL Globulin 3.1 (1.7-4.1) g/dL Albumin/Globulin Ratio 0.9 L (1.0-2.8) Urine Dip Bedside Urine Glucose 100 mg/dl Bedside Urine Bilirubin - Negative Bedside Urine Ketone ++ 40 Urine Specific [place] 1.015 Bedside Urine Occult Blood - Negative Bedside Urine pH 7.0 Bedside Urine Protein +/- 15 Bedside Urine Urobilinogen 1+ 2mg Bedside Urine Nitrite - Negative Bedside Urine Leukocytes - Negative Esterase MDM Narrative Medical decision making narrative: Labs reviewed. Baseline from when she was discharged. She was given Zofran which did seem to improve her symptoms significantly. She was able to tolerate oral intake. Will hold on further workup for now. Will send over the prescription for Zofran. She was given return precautions and follow-up instructions. She expressed understanding and agreement with plan Discharge Plan Departure Patient Disposition: Home Clinical Impression: Hypokalemia Nausea & vomiting Qualifiers: Vomiting type: unspecified Vomiting Intractability: unspecified Qualified Code(s): R11.2 - Nausea with vomiting, unspecified Discharge Date/Time: 07/07/18 20:24 Interventions: ED Discharge Assessment Last Done: 07/07/18 20:24 Instructions: DI for Nausea -- Adult Activity Restrictions/Additional Instructions: Be sure to eat a bland diet and advance her diet as tolerated. Keep all of her scheduled medical appointments. Return to the emergency department for any new or worsening symptoms Prescriptions: New ondansetron 4 mg tablet,disintegrating 4 mg PO Q6-8H PRN (Reason: nausea and vomiting) Qty: 14 RF: 0 potassium chloride 20 mEq tablet extended release 40 meq PO .Once Qty: 2 RF: 0 No Action multivitamin Capsule 1 tab PO DAILY RF: 0 ibuprofen 600 mg tablet 600 mg PO TID PRN (Reason: pain) Qty: 30 RF: 0 metronidazole 500 mg tablet 500 mg PO BID Qty: 14 RF: 0 oxycodone-acetaminophen 5-325 mg tablet 1 tab PO Q4-6H PRN (Reason: pain) Qty: 20 RF: 0 metoclopramide HCl [Reglan] 10 mg tablet 10 mg PO Q6H PRN (Reason: nausea and vomiting) Qty: 10 RF: 0 amoxicillin-pot clavulanate 875-125 mg tablet 1 tab PO BID Qty: 14 RF: 0 ferrous gluconate 324 mg (37.5 mg iron) tablet 324 mg PO DAILY Qty: 30 RF: 1 docusate sodium [Colace] 100 mg capsule 100 mg PO DAILY Qty: 20 RF: 0 Referrals: Torie Bustillo DO [Primary Care Provider] -
[2018-07-07] MEDS: MORPHINE 2 MG/ML INJ IV (18:10)
[2018-07-07] MEDS: ONDANSETRON 4 MG/2 ML INJ IV (18:10)
[2018-07-07 18:25] LABS: Add Manual Diff / Slide Review NO; Basophils Absolute Auto 100 /uL (0-100); Basophils Percent Auto 0.4 % (0-2); Eosinophils Absolute Auto 100 /uL (0-450); Eosinophils Percent Auto 0.5 % (2-4); Hematocrit 26.2 % (36-46); Hemoglobin 8.7 g/dL (12.0-16.0); Lymphocytes Absolute Auto 1700 /uL (1100-4500); Lymphocytes Percent Auto 10.9 % (25-40); Mean Corpuscular Hemoglobin 29.2 PG (26-34); Mean Corpuscular Volume 88.5 fL (80-100); Monocytes Absolute Auto 2000 /uL (0-900); Monocytes Percent Auto 12.5 % (3-14); Neutrophils Absolute Auto 12100 /uL (1500-7000); Neutrophils Percent Auto 75.7 % (50-75); Platelet Count 442 X10^3/uL (150-400); Red Blood Cell Count 2.96 X10^6/uL (4.0-5.2); Red Cell Distribution Width 13.5 % (11.6-14.8)
[2018-07-07 18:37] LABS: Alanine Aminotransferase 24 IU/L (9-52); Albumin 2.9 g/dL (3.5-5.0); Albumin Globulin Ratio 0.9 (1.0-2.8); Alkaline Phosphatase 68 U/L (38-126); Aspartate Aminotransferase 21 IU/L (14-36); BUN Creatinine Ratio 7.5 (6-22); Bilirubin Total 0.5 mg/dL (0.2-1.3); Blood Urea Nitrogen 3 mg/dL (7-17); Calcium 8.1 mg/dL (8.4-10.2); Carbon Dioxide 25 mmol/L (22-32); Chloride 101 mmol/L (98-107); Estimated Glomerular Filt Rate > 60.0 mL/min (>60); Globulin 3.1 g/dL (1.7-4.1); Glucose 85 mg/dL (70-100); HEMOLYSIS < 15 (0-50); Potassium 2.9 mmol/L (3.4-5.1); Sodium 134 mmol/L (137-145)
[2018-07-07 19:08] VITALS: BP 146/86; PULSE 80; RESP 18; O2SAT 98
[2018-07-07 20:24] VITALS: BP 142/79; PULSE 76; RESP 16; O2SAT 100
--- NOTE | 2018-07-16 07:55 | P.DS_ITS ---
History of Present Illness Date Patient Seen: 07/07/18 Time Patient Seen: 09:15 Chief complaint: just discharged from here, now vomiting Narrative: Patient is a 33-year-old who underwent an abdominal supracervical hysterectomy with appendectomy last week. She was admitted with abdominal pain and decreasing hematocrit. She was found to have a pelvic hematoma. She was taken to the operating room on 07/03/2018 for evacuation of the hematoma. She was found to have a large amount of adhe rent clot. Postoperatively she developed an ileus. This resolved with bowel rest. She was discharged home on 07/07/2018. Discharge Providers Date of admission: 07/02/2018 Discharge Date: 07/07/18 Primary care physician: Torie Bustillo DO Consults: General surgery Discharge provider: Enedina Palafox MD Exam Vital Signs (past 8 hours): Oxygen Delivery Method Room Air Objective Labs Result Diagrams: 07/07/18 18:15 07/07/18 18:15 Discharge Plan Departure Patient Disposition: Home Clinical Impression: Nausea & vomiting, Hypokalemia Discharge Date/Time: 07/07/18 20:24 Instructions: DI for Nausea -- Adult Activity Restrictions/Additional Instructions: Be sure to eat a bland diet and advance her diet as tolerated. Keep all of her scheduled medical appointments. Return to the emergency department for any new or worsening symptoms Prescriptions: New ondansetron 4 mg tablet,disintegrating 4 mg PO Q6-8H PRN (Reason: nausea and vomiting) Qty: 14 RF: 0 potassium chloride 20 mEq tablet extended release 40 meq PO .Once Qty: 2 RF: 0 No Action multivitamin Capsule 1 tab PO DAILY RF: 0 ibuprofen 600 mg tablet 600 mg PO TID PRN (Reason: pain) Qty: 30 RF: 0 metronidazole 500 mg tablet 500 mg PO BID Qty: 14 RF: 0 oxycodone-acetaminophen 5-325 mg tablet 1 tab PO Q4-6H PRN (Reason: pain) Qty: 20 RF: 0 metoclopramide HCl [Reglan] 10 mg tablet 10 mg PO Q6H PRN (Reason: nausea and vomiting) Qty: 10 RF: 0 amoxicillin-pot clavulanate 875-125 mg tablet 1 tab PO BID Qty: 14 RF: 0 ferrous gluconate 324 mg (37.5 mg iron) tablet 324 mg PO DAILY Qty: 30 RF: 1 docusate sodium [Colace] 100 mg capsule 100 mg PO DAILY Qty: 20 RF: 0 Referrals: Torie Bustillo DO [Primary Care Provider] -
== END 2018-07-07 20:24 | disposition home or self-care (01) ==
PROVIDERS: Emergency Medicine; Emergency Provider Emergency Medicine; PCP Family Medicine
DX: E87.6 Hypokalemia (principal); R11.2 Nausea with vomiting, unspecified
CPT/HCPCS: 36591; 80053; 81003; 85025; 96374; 96375; 96376; 99282; 99284; J2270; J2405

== ENCOUNTER 2018-07-13 06:48 | Emergency (ER) | payer OTHER, SELFPAY ==
[2018-07-01 12:00] VITALS: BMI 22.2
[2018-07-13 07:10] VITALS: BP 140/87; PULSE 96; RESP 22; TEMP 37.2; O2SAT 99; BMI 21.9
--- NOTE | 2018-07-13 07:36 | DI.RAD.S_ITS ---
PROCEDURE: XR ACUTE ABDOMEN SERIES INDICATIONS: Abdominal pain, No BM x6 days TECHNIQUE: One view chest and two views of the abdomen were acquired. COMPARISON: [facility], CR, XR ACUTE ABDOMEN SERIES, 07/05/2018, 11:45. FINDINGS: Surgical changes and devices: None. Chest: Lungs are clear. Heart size is normal. No pleural effusions. No pneumoperitoneum. Abdomen: Bowel gas pattern is normal. No suspicious calcifications. Visualized solid organ contours appear normal. Mild to moderate amount of fecal bunion is seen. Bones: No suspicious bony lesions. IMPRESSION: No evidence of bowel obstruction or gross free air. Mild constipation. No acute cardiopulmonary pathology. Dictated by: Erick Stern M.D. on 07/13/2018 at 8:40 Approved by: Erick Stern M.D. on 07/13/2018 at 8:41
[2018-07-13] MEDS: SODIUM CHLORIDE 0.9% 1,000 ML 1000 ML IV (07:58)
[2018-07-13 08:06] LABS: Basophils Absolute Auto 100 /uL (0-100); Basophils Percent Auto 0.4 % (0-2); Eosinophils Absolute Auto 100 /uL (0-450); Eosinophils Percent Auto 0.4 % (2-4); Hematocrit 29.3 % (36-46); Lymphocytes Absolute Auto 1700 /uL (1100-4500); Mean Corpuscular Hemoglobin 29.5 PG (26-34); Mean Corpuscular Volume 86.7 fL (80-100); Monocytes Absolute Auto 1700 /uL (0-900); Monocytes Percent Auto 9.1 % (3-14); Neutrophils Absolute Auto 15300 /uL (1500-7000); Neutrophils Percent Auto 81.1 % (50-75); Platelet Count 701 X10^3/uL (150-400); Red Blood Cell Count 3.39 X10^6/uL (4.0-5.2); Red Cell Distribution Width 13.8 % (11.6-14.8); White Blood Cell Count 18.9 X10^3/uL (4.5-11.0)
[2018-07-13 08:10] VITALS: BP 136/86; PULSE 98; RESP 18; O2SAT 99
[2018-07-13 08:13] LABS: Add Manual Diff / Slide Review SLIDE REVIEW; Blood Urea Nitrogen 8 mg/dL (7-17); Calcium 8.9 mg/dL (8.4-10.2); Carbon Dioxide 25 mmol/L (22-32); Chloride 97 mmol/L (98-107); Estimated Glomerular Filt Rate > 60.0 mL/min (>60); Glucose 86 mg/dL (70-100); HEMOLYSIS < 15 (0-50); Potassium 3.7 mmol/L (3.4-5.1); Sodium 134 mmol/L (137-145)
[2018-07-13 08:44] LABS: RBC Morphology Normal Morphology
[2018-07-13 08:45] LABS: Platelet Estimate Increased on smear; Platelet Morphology Comment NOTE
--- NOTE | 2018-07-13 10:25 | ED_ITS ---
HPI - Abdominal Pain General Chief Complaint: Abdominal Pain Stated Complaint: NO BOWEL MOVEMENT X6 DAYS Time Seen by Provider: 07/13/18 07:01 Source: patient and family Mode of arrival: ambulatory Limitations: no limitations History of Present Illness HPI narrative: 33-year-old female nonsmoker with relatively recent laparoscopic hysterectomy and subsequent hematoma requiring prolonged hospitalization presents with decreased BM x 6 days and abdominal fullness. She has had some decreased appetite and nausea but no vomiting. She has generalized abdominal cramping but no significant or pinpoint pain. she denies fever or chills. She is not dizzy or weak or lightheaded. She has been taking a stool softener daily MD complaint: abdominal pain Onset (ago): day(s) Pain Consistency: intermittent Location: diffuse Severity: moderate Quality: cramping Radiation: none Relieving factors: nothing Exacerbating factors: nothing Context: recent surgery/procedure Related Data Patient : No Home Medications Medication Instructions Recorded Confirmed multivitamin 1 tab PO DAILY 12/29/17 07/01/18 Previous Rx's Medication Instructions Recorded ibuprofen 600 mg PO TID PRN #30 tab 06/27/18 amoxicillin-pot clavulanate 1 tab PO BID #14 tab 07/07/18 docusate sodium [Colace] 100 mg PO DAILY #20 cap 07/07/18 ferrous gluconate 324 mg PO DAILY #30 tab 07/07/18 metoclopramide HCl [Reglan] 10 mg PO Q6H PRN #10 tab 07/07/18 metronidazole 500 mg PO BID #14 tab 07/07/18 ondansetron 4 mg PO Q6-8H PRN #14 tab 07/07/18 oxycodone-acetaminophen 1 tab PO Q4-6H PRN #20 tab 07/07/18 potassium chloride 40 meq PO .Once #2 tab 07/07/18 Allergies Allergy/AdvReac Type Severity Reaction Status Date / Time No Known Drug Allergies Allergy Verified 07/07/18 15:33 Review of Systems Constitutional Denies chills, Denies fever(s), Denies lethargy and Denies weakness Eyes Denies change in vision, Denies eye discharge, Denies irritation and Denies loss of vision ENT Ears, Nose, Mouth, and Throat: Denies change in voice, Denies neck pain and Denies sore throat Cardiovascular Denies chest pain, Denies irregular heart rhythm, Denies lightheadedness, Denies palpitations, Denies dyspnea, Denies dyspnea on exertion and Denies orthopnea Respiratory Denies cough, Denies dyspnea, Denies dyspnea on exertion and Denies wheezing Gastrointestinal Gastrointestinal: Reports abdominal pain, Denies change in bowel habits, Reports constipation, Denies diarrhea, Denies nausea and Denies vomiting Genitourinary Denies hematuria, Denies flank pain, Denies urinary incontinence and Denies urinary urgency Musculoskeletal Denies neck pain Integumentary/Breasts Denies pruritus, Denies erythema, Denies rash and Denies wounds Neurologic Denies confusion, Denies loss of vision and Denies weakness Psychiatric Denies anxiety, Denies confusion, Denies depression, Denies homicidal ideation and Denies suicidal ideation Endocrine Denies palpitations Hematologic/Lymphatic Denies easy bruising Allergic/Immunologic Denies wheezing PFSH Medical History Irregular menstrual cycle (Chronic ~2006) Ovarian cyst (Chronic ~2004) Painful menstrual periods (Chronic ~2009) Surgical History Anesthesia (Resolved) History of delivery (Resolved) History of laparoscopy (Resolved) History of left oophorectomy (Resolved ~2012) History of tubal ligation (Resolved) Family History Father Stroke Mother Hypertension Sister Hypertension Grandfather Cancer Hypertension Grandmother Hyperlipidemia Hypertension Social History household members: spouse Smoking Status: Former smoker Family History Father Stroke Mother Hypertension Sister Hypertension Grandfather Cancer Hypertension Grandmother Hyperlipidemia Hypertension Social History household members: spouse Smoking Status: Former smoker Exam Narrative Exam Narrative: GENERAL: 33-year-old female appears uncomfortable. A and O x3 HEAD: Atraumatic. Normocephalic. No temporal or scalp tenderness. EYES: Pupils equal round and reactive. Extraocular motions intact. No scleral icterus. No injection or drainage. ENT: Nose without bleeding, purulent drainage or septal hematoma. Throat without erythema, tonsillar hypertrophy or exudate. Uvula midline. Airway patent. NECK: Trachea midline. No JVD or lymphadenopathy. Supple, nontender, no meningeal signs. CARDIOVASCULAR: Regular rate and rhythm without murmurs, gallops, or rubs. RESPIRATORY: Clear to auscultation. Breath sounds equal bilaterally. No wheezes, rales, or rhonchi. GASTROINTESTINAL: Abdomen soft, mild generalized tenderness, nondistended. + BS x 4 quadrants. Incisions C/D/I EXTREMITIES: No clubbing, cyanosis, or edema. No joint tenderness, effusion, or edema noted. BACK: Nontender without deformity or crepitance. No flank tenderness. NEURO: AOx3. SKIN: No rash or erythema. Initial Vital Signs Initial Vital Signs: Vital Signs Temperature 98.9 F 07/13/18 07:10 Pulse Rate 96 H 07/13/18 07:10 Respiratory Rate 22 07/13/18 07:10 Blood Pressure 140/87 07/13/18 07:10 Pulse Oximetry 99 07/13/18 07:10 Course Orders Ordered: ED Orders 07/13/18 07:36 XR acute abdomen series Stat 07/13/18 07:52 Basic Metabolic Panel Stat Complete Blood Count AUTO DIFF Stat Discontinued Medications Sodium Chloride (Normal Saline 0.9%) 1,000 mls @ 1,000 mls/hr IV BOLUS ONE Stop: 07/13/18 08:34 Last Infusion: 07/13/18 11:28 Dose: 0 mls/hr Admin: 07/13/18 07:58 Dose: 1,000 mls/hr Reevaluation(s) Reevaluation #1: enema ordered Reevaluation #2: patient had a very large BM and now has a near complete resolution of symptoms Consultations Consultation #1: call to Dr. Palafox to touchbase, she is in OR, Dr. Wilson answers and suggests more concerted attempts at moving bowels. Will relay message to Dr. Palafox Time: 10:22 Vital Signs - 8 hr 07/13/18 07:10 07/13/18 08:10 07/13/18 10:30 Temperature 98.9 F Pulse Rate 96 H 98 H 97 H Respiratory Rate 22 18 18 Blood Pressure 140/87 Blood Pressure [Left Arm] 136/86 141/85 H Pulse Oximetry 99 99 97 07/13/18 11:04 07/13/18 11:29 Temperature 99.1 F Pulse Rate 100 H 96 H Respiratory Rate 18 20 Blood Pressure 139/81 Blood Pressure [Left Arm] 139/81 Pulse Oximetry 99 99 MDM - Abdominal Pain Lab Data Result diagrams: 07/13/18 07:52 07/13/18 07:52 Lab Results 07/13/18 07/13/18 Range/Units 07:52 07:52 WBC 18.9 H (4.5-11.0) X10^3/uL RBC 3.39 L (4.0-5.2) X10^6/uL Hgb 10.0 L (12.0-16.0) g/dL Hct 29.3 L (36-46) % MCV 86.7 (80-100) fL MCH 29.5 (26-34) PG MCHC 34.0 (30-36) % RDW 13.8 (11.6-14.8) % Plt Count 701 H (150-400) X10^3/uL Neut % (Auto) 81.1 H (50-75) % Lymph % (Auto) 9.0 L (25-40) % [place] % (Auto) 9.1 (3-14) % Eos % (Auto) 0.4 L (2-4) % Baso % (Auto) 0.4 (0-2) % Neut # (Auto) 88507 H (2464-5173) /uL Lymph # (Auto) 1700 (1301-2476) /uL [place] # (Auto) 1700 H (0-900) /uL Eos # (Auto) 100 (0-450) /uL Baso # (Auto) 100 (0-100) /uL Platelet Estimate Increased on smear Plt Morphology Comment Note RBC Morphology Normal morphology Sodium 134 L (137-145) mmol/L Potassium 3.7 (3.4-5.1) mmol/L Chloride 97 L (98-107) mmol/L Carbon Dioxide 25 (22-32) mmol/L BUN 8 (7-17) mg/dL Creatinine 0.40 L (0.52-1.04) mg/dL Estimated GFR > 60.0 (>60) mL/min BUN/Creatinine Ratio 20.0 (6-22) Glucose 86 (70-100) mg/dL Calcium 8.9 (8.4-10.2) mg/dL MDM Narrative Medical decision making narrative: Multiple etiologies for patient's symptoms considered including: [Bowel obstruction versus constipation versus postoperative complication or infection. Patient has minimal pain, no fever, and normal vitals. Her WBC have been quite elevated as of late and her numbers today are not significantly different Patient's symptoms improved or duration of stay with above-stated therapies. Findings and discharge diagnosis discussed with patient/family followed by verbalization of understanding Return precautions discussed with patient/family whom verbalize understanding. Discharge Plan Departure Patient Disposition: Home Clinical Impression: Constipation Qualifiers: Constipation type: unspecified constipation type Qualified Code(s): K59.00 - Constipation, unspecified Discharge Date/Time: 07/13/18 11:29 Interventions: ED Discharge Assessment Last Done: 07/13/18 11:29 Instructions: Constipation Activity Restrictions/Additional Instructions: *You have been diagnosed with [ abdominal pain due to constipation ] *What to do: *Take over the counter medications as directed: 1. Magnesium Citrate - brings water into your bowel 2. Colace - softens your stool 3. Dulcolax or Exlax- stimulates your bowels *Follow up with your PCP/OB in 2-3 days, call for appointment *Return to ER if you should have any new, worsening or concerning symptoms *Drink plenty of water and eat foods high in fiber Prescriptions: No Action multivitamin Capsule 1 tab PO DAILY RF: 0 ibuprofen 600 mg tablet 600 mg PO TID PRN (Reason: pain) Qty: 30 RF: 0 metronidazole 500 mg tablet 500 mg PO BID Qty: 14 RF: 0 oxycodone-acetaminophen 5-325 mg tablet 1 tab PO Q4-6H PRN (Reason: pain) Qty: 20 RF: 0 metoclopramide HCl [Reglan] 10 mg tablet 10 mg PO Q6H PRN (Reason: nausea and vomiting) Qty: 10 RF: 0 amoxicillin-pot clavulanate 875-125 mg tablet 1 tab PO BID Qty: 14 RF: 0 ferrous gluconate 324 mg (37.5 mg iron) tablet 324 mg PO DAILY Qty: 30 RF: 1 docusate sodium [Colace] 100 mg capsule 100 mg PO DAILY Qty: 20 RF: 0 ondansetron 4 mg tablet,disintegrating 4 mg PO Q6-8H PRN (Reason: nausea and vomiting) Qty: 14 RF: 0 potassium chloride 20 mEq tablet extended release 40 meq PO .Once Qty: 2 RF: 0 Referrals: Enedina Palafox MD [Physician] -
[2018-07-13 10:30] VITALS: BP 141/85; PULSE 97; RESP 18; O2SAT 97
[2018-07-13 11:04] VITALS: BP 139/81; PULSE 100; RESP 18; O2SAT 99
[2018-07-13 11:29] VITALS: BP 139/81; PULSE 96; RESP 20; TEMP 37.3; O2SAT 99
== END 2018-07-13 11:29 | disposition home or self-care (01) ==
PROVIDERS: Emergency Provider Emergency Medicine; PCP Family Medicine
DX: K59.00 Constipation, unspecified (principal); R11.0 Nausea
CPT/HCPCS: 36591; 74022; 80048; 85025; 96360; 96361; 99284

== ENCOUNTER 2018-07-20 06:29 | Inpatient (IN) | payer OTHER, SELFPAY ==
[2018-07-01 12:00] VITALS: BMI 22.2
[2018-07-20] VITALS (31 sets, daily range): BP systolic 115–135; BP diastolic 69–83; PULSE 80–123; RESP 10–27; TEMP 36.3–38.6; O2SAT 96–100; BMI 20.3
[2018-07-20 07:26] LABS: Hematocrit 32.6 % (36-46); Hemoglobin 10.7 g/dL (12.0-16.0); Mean Corpuscular HGB Conc 32.8 % (30-36); Mean Corpuscular Hemoglobin 28.2 PG (26-34); Platelet Count 556 X10^3/uL (150-400); Red Cell Distribution Width 14.7 % (11.6-14.8)
[2018-07-20 07:28] LABS: Add Manual Diff / Slide Review YES; White Blood Cell Count 35.8 X10^3/uL (4.5-11.0)
[2018-07-20 07:34] LABS: Alanine Aminotransferase 151 IU/L (9-52); Albumin 3.8 g/dL (3.5-5.0); Albumin Globulin Ratio 0.8 (1.0-2.8); Alkaline Phosphatase 186 U/L (38-126); Aspartate Aminotransferase 133 IU/L (14-36); Bilirubin Total 0.5 mg/dL (0.2-1.3); Blood Urea Nitrogen 9 mg/dL (7-17); Calcium 9.4 mg/dL (8.4-10.2); Carbon Dioxide 24 mmol/L (22-32); Chloride 96 mmol/L (98-107); Estimated Glomerular Filt Rate > 60.0 mL/min (>60); Globulin 4.7 g/dL (1.7-4.1); Glucose 92 mg/dL (70-100); HEMOLYSIS 20 (0-50); Lipase 73 U/L (23-300); Potassium 3.6 mmol/L (3.4-5.1); Sodium 135 mmol/L (137-145); Total Protein 8.5 g/dL (6.3-8.2)
--- NOTE | 2018-07-20 07:34 | ED.ABDPAIN ---
HPI - Abdominal Pain General Chief Complaint: Abdominal Pain Stated Complaint: lower abd pain, has huge lump in stomach Time Seen by Provider: 07/20/18 07:34 Source: patient, family () and old records reviewed History of Present Illness HPI narrative: This is a 33-year-old female comes to the emergency department with complaint of abdominal pain and swelling on the right side of the abdomen status post laparoscopic hysterectomy, subsequent hematoma requiring blood transfusion. The patient comes in today with complaint of increasing pain in her lower abdomen. She states she has been having sweats and fever like symptoms daily. Patient denies any nausea, no vomiting. She states she has been having bowel movements. She states she has not felt like she needed to urinate but she does when she has a bowel movement. Patient states that the pain seemed to increase when she rolled over in bed when morning. She contacted nursing staff with her surgeon was told it was most likely a strain. She has noticed swelling on that side since then. She is unsure if it is increasing in size but has not improved. She states she always feels sort of warmth and has not noticed any discrete redness or warmth over that site particularly. Her incisions have been healing well. She has not had any vaginal bleeding or discharge. patient states she has been taking ibuprofen for pain, she was taking Percocet but had finished her prescription. She had her hysterectomy secondary to heavy bleeding with menstruation. She denies any other past medical history. She is accompanied by her . Related Data Home Medications Medication Instructions Recorded Confirmed multivitamin 1 tab PO DAILY 12/29/17 07/20/18 potassium chloride 1 dose PO DAILY 07/20/18 07/20/18 Previous Rx's Medication Instructions Recorded ibuprofen 600 mg PO TID PRN #30 tab 06/27/18 docusate sodium [Colace] 100 mg PO DAILY #20 cap 07/07/18 ferrous gluconate 324 mg PO DAILY #30 tab 07/07/18 oxycodone-acetaminophen 1 tab PO Q4-6H PRN #20 tab 07/07/18 Allergies Allergy/AdvReac Type Severity Reaction Status Date / Time No Known Drug Allergies Allergy Verified 07/20/18 06:57 Review of Systems Review of Systems ROS Unobtainable: All systems reviewed & are unremarkable except as noted in HPI and below Constitutional Reports anorexia, Denies chills, Reports fever(s) (Subjective) and Reports poor appetite Cardiovascular Denies chest pain, Reports diaphoresis and Denies dyspnea Respiratory Denies chest congestion, Denies cough and Denies dyspnea Gastrointestinal Gastrointestinal: Reports abdominal pain, Denies melena, Denies hematochezia, Denies change in bowel habits, Denies constipation, Denies diarrhea, Denies nausea and Denies vomiting Genitourinary Reports as per HPI, Denies abnormal vaginal bleeding, Denies hematuria, Denies urinary frequency, Denies dysuria, Denies flank pain, Denies urinary incontinence, Denies urinary hesitancy and Denies urinary urgency Integumentary/Breasts Denies erythema, Denies rash and Reports other (healing incisions) [facility] Medical History Irregular menstrual cycle (Chronic ~2006) Ovarian cyst (Chronic ~2004) Painful menstrual periods (Chronic ~2009) Surgical History Anesthesia (Resolved) History of delivery (Resolved) History of laparoscopy (Resolved) History of left oophorectomy (Resolved ~2012) History of tubal ligation (Resolved) Family History Father Stroke Mother Hypertension Sister Hypertension Grandfather Cancer Hypertension Grandmother Hyperlipidemia Hypertension Social History household members: spouse Smoking Status: Former smoker Family History Father Stroke Mother Hypertension Sister Hypertension Grandfather Cancer Hypertension Grandmother Hyperlipidemia Hypertension Social History household members: spouse Smoking Status: Former smoker Exam Narrative Exam Narrative: GENERAL: Alert and oriented x three, thin, well-appearing female who is occasionally tearful during HPI HEENT: Head normocephalic, atraumatic, EOMI, pupils reactive, face symmetric, moist mucous membranes NECK: Supple, full range of motion CARDIOVASCULAR: Regular rate and rhythm without murmurs, rubs or gallops. RESPIRATORY: Breath sounds equal bilaterally, no wheezes rales or rhonchi. ABDOMEN: Soft, patient has generalized tenderness, she is quite tender on the right lower quadrant as well as the left lower little bit more than her upper quadrants. Patient has fullness of the right lower abdomen with little bit hardness. There is no discrete palpable mass but is not soft typical soft tissue. Patient has laparoscopic incisions all 3 appear clean dry and intact. there are 2 Steri-Strips over each site. There is no discharge. the sites themselves to very light touch are nontender. Hypoactive bowel sounds all 4 quadrants. Positive for guarding and rebound, no rigidity. : No CVA tenderness EXTREMITIES: Normal range of motion, no clubbing or edema. Neurovascularly intact NEUROLOGICAL: Cranial nerves II through XII grossly intact. Moving all extremities SKIN: Warm, dry, no petechiae, no rashes or lesions. Initial Vital Signs Initial Vital Signs: Vital Signs Temperature 98.6 F 07/20/18 06:57 Pulse Rate 123 H 07/20/18 06:57 Respiratory Rate 24 07/20/18 06:57 Blood Pressure 120/80 07/20/18 06:57 Pulse Oximetry 100 07/20/18 06:57 Course Orders Ordered: ED Orders 07/20/18 10:30 Urinalysis and Microscopic Stat 07/20/18 11:16 Consult to Slitting Machine Feeder Routine Fentanyl (Sublimaze) 50 mcg IV Q5MIN ARIA Stop: 07/21/18 18:16 Last Admin: 07/20/18 18:26 Dose: 50 mcg Admin: 07/20/18 18:14 Dose: 50 mcg Hydromorphone HCl (Dilaudid) 2 mg IV Q2HR PRN PRN Reason: Pain, Severe (7-10) Last Admin: 07/20/18 11:43 Dose: 1 mg Lactated Ringer's (Lactated Ringers) 1,000 mls @ 125 mls/hr IV CONT ARIA Last Admin: 07/20/18 17:38 Dose: 42 mls/hr Infusion: 07/20/18 17:38 Dose: 125 mls/hr Admin: 07/20/18 11:44 Dose: 125 mls/hr Discontinued Medications Acetaminophen (Tylenol) 975 mg PO NOW ONE Stop: 07/20/18 13:08 Last Admin: 07/20/18 13:18 Dose: 975 mg Sodium Chloride (Normal Saline 0.9%) 1,000 mls @ 1,000 mls/hr IV BOLUS ONE Stop: 07/20/18 08:07 Last Admin: 07/20/18 08:20 Dose: Not Given Sodium Chloride (Normal Saline 0.9%) 1,564.89 mls @ 521.63 mls/hr 30 ml/kg infuse over 3 hr (1564.89 ml) IV NOW ONE Stop: 07/20/18 10:36 Last Infusion: 07/20/18 10:24 Dose: 0 mls/hr Admin: 07/20/18 08:19 Dose: 521.63 mls/hr Piperacillin/Tazobactam/Dextrose (Zosyn) 3.375 gm in 50 mls @ 100 mls/hr IV NOW ONE Stop: 07/20/18 08:43 Last Infusion: 07/20/18 09:17 Dose: 0 mls/hr Admin: 07/20/18 08:49 Dose: 100 mls/hr Vancomycin HCl/Dextrose (Vancomycin) 1,000 mg in 200 mls @ 200 mls/hr IV NOW ONE Stop: 07/20/18 09:17 Last Infusion: 07/20/18 10:15 Dose: 0 mls/hr Admin: 07/20/18 09:16 Dose: 200 mls/hr Morphine Sulfate (Morphine) 4 mg IV NOW ONE Stop: 07/20/18 08:05 Last Admin: 07/20/18 08:19 Dose: 4 mg Morphine Sulfate (Morphine) 4 mg IV NOW ONE Stop: 07/20/18 09:50 Last Admin: 07/20/18 09:49 Dose: 4 mg Morphine Sulfate (Morphine) 4 mg IV NOW ONE Stop: 07/20/18 09:50 Last Admin: 07/20/18 10:25 Dose: Not Given Vital Signs - 8 hr 07/20/18 11:01 07/20/18 12:00 07/20/18 12:19 Temperature 99.7 F H 100.5 F H 100.5 F H Pulse Rate 104 H Respiratory Rate 24 Blood Pressure 135/70 Pulse Oximetry 100 07/20/18 13:03 07/20/18 14:03 07/20/18 14:26 Temperature 100.9 F H 101.1 F H 101.5 F H Pulse Rate 111 H Respiratory Rate 18 Blood Pressure 131/70 Pulse Oximetry 100 07/20/18 15:32 07/20/18 17:08 07/20/18 18:15 Temperature 100.4 F H 100.8 F H Pulse Rate 108 H 106 H 103 H Respiratory Rate 18 15 15 Blood Pressure 134/71 127/76 130/75 Pulse Oximetry 100 100 100 MDM - Abdominal Pain Lab Data Attestation: I reviewed the patient's lab results. Result diagrams: 07/20/18 07:05 07/20/18 07:05 Lab Results 07/20/18 07/20/18 07/20/18 Range/Units 07:05 07:05 07:05 WBC 35.8 H* (4.5-11.0) X10^3/uL RBC 3.80 L (4.0-5.2) X10^6/uL Hgb 10.7 L (12.0-16.0) g/dL Hct 32.6 L (36-46) % MCV 86.0 (80-100) fL MCH 28.2 (26-34) PG MCHC 32.8 (30-36) % RDW 14.7 (11.6-14.8) % Plt Count 556 H (150-400) X10^3/uL Neut % (Auto) Not Reportable Lymph % (Auto) Not Reportable [place] % (Auto) Not Reportable Eos % (Auto) Not Reportable Baso % (Auto) Not Reportable Lymph # (Auto) Not Reportable [place] # (Auto) Not Reportable Baso # (Auto) Not Reportable Total Counted 100 Seg Neutrophils % 67.0 (38-70) % Band Neutrophils % 8.0 H (3-7) % Lymphocytes % (Manual) 9.0 L (25-45) % Atypical Lymphs % 1.0 H ( - 0) % Monocytes % (Manual) 12.0 H (2-11) % Eosinophils % (Manual) 3.0 (2-4) % Neutrophils # (Manual) 48246 H (6127-2577) /uL RBC Morphology See below Hypochromasia 1+ H Poikilocytosis 1+ H Sodium 135 L (137-145) mmol/L Potassium 3.6 (3.4-5.1) mmol/L Chloride 96 L (98-107) mmol/L Carbon Dioxide 24 (22-32) mmol/L BUN 9 (7-17) mg/dL Creatinine 0.60 (0.52-1.04) mg/dL Estimated GFR > 60.0 (>60) mL/min BUN/Creatinine Ratio 15.0 (6-22) Glucose 92 (70-100) mg/dL Lactate 1.0 (0.7-2.1) mmol/L Calcium 9.4 (8.4-10.2) mg/dL Total Bilirubin 0.5 (0.2-1.3) mg/dL AST 133 H (14-36) IU/L ALT 151 H (9-52) IU/L Alkaline Phosphatase 186 H (38-126) U/L Total Protein 8.5 H (6.3-8.2) g/dL Albumin 3.8 (3.5-5.0) g/dL Globulin 4.7 H (1.7-4.1) g/dL Albumin/Globulin Ratio 0.8 L (1.0-2.8) Lipase 73 (23-300) U/L Procalcitonin (<0.5) ng/mL Urine Color Urine Appearance Urine pH (4.5-8.0) Ur Specific [place] (1.000-1.035) Urine Protein (Negative) Urine Glucose (UA) (Negative) g/dL Urine Ketones (NEGATIVE) Urine Occult Blood (Negative) Urine Nitrate (Negative) Urine Bilirubin (NEGATIVE) Urine Urobilinogen (0.2) E.U./dL Ur Leukocyte Esterase (NEGATIVE) Urine RBC (0-5/HPF) Urine WBC (0-5/HPF) Ur Squamous Epith Cells (0-5/HPF) Urine Bacteria (None) Ur Culture Indicated? 07/20/18 07/20/18 Range/Units 07:05 10:30 WBC (4.5-11.0) X10^3/uL RBC (4.0-5.2) X10^6/uL Hgb (12.0-16.0) g/dL Hct (36-46) % MCV (80-100) fL MCH (26-34) PG MCHC (30-36) % RDW (11.6-14.8) % Plt Count (150-400) X10^3/uL Neut % (Auto) Lymph % (Auto) [place] % (Auto) Eos % (Auto) Baso % (Auto) Lymph # (Auto) [place] # (Auto) Baso # (Auto) Total Counted Seg Neutrophils % (38-70) % Band Neutrophils % (3-7) % Lymphocytes % (Manual) (25-45) % Atypical Lymphs % ( - 0) % Monocytes % (Manual) (2-11) % Eosinophils % (Manual) (2-4) % Neutrophils # (Manual) (3186-1093) /uL RBC Morphology Hypochromasia Poikilocytosis Sodium (137-145) mmol/L Potassium (3.4-5.1) mmol/L Chloride (98-107) mmol/L Carbon Dioxide (22-32) mmol/L BUN (7-17) mg/dL Creatinine (0.52-1.04) mg/dL Estimated GFR (>60) mL/min BUN/Creatinine Ratio (6-22) Glucose (70-100) mg/dL Lactate (0.7-2.1) mmol/L Calcium (8.4-10.2) mg/dL Total Bilirubin (0.2-1.3) mg/dL AST (14-36) IU/L ALT (9-52) IU/L Alkaline Phosphatase (38-126) U/L Total Protein (6.3-8.2) g/dL Albumin (3.5-5.0) g/dL Globulin (1.7-4.1) g/dL Albumin/Globulin Ratio (1.0-2.8) Lipase (23-300) U/L Procalcitonin 0.29 (<0.5) ng/mL Urine Color Yellow Urine Appearance Clear Urine pH 6.5 (4.5-8.0) Ur Specific [place] <=1.005 (1.000-1.035) Urine Protein Negative (Negative) Urine Glucose (UA) Negative (Negative) g/dL Urine Ketones 1+ H (NEGATIVE) Urine Occult Blood Trace-lysed (Negative) Urine Nitrate Negative (Negative) Urine Bilirubin Negative (NEGATIVE) Urine Urobilinogen 0.2 (0.2) E.U./dL Ur Leukocyte Esterase Negative (NEGATIVE) Urine RBC 0-1/hpf (0-5/HPF) Urine WBC 0-1/hpf (0-5/HPF) Ur Squamous Epith Cells 0-1 /hpf (0-5/HPF) Urine Bacteria Occasional (0-1) (None) Ur Culture Indicated? Cult not indicated MDM Narrative Medical decision making narrative: Patient's heart rate is 120 upon arrival. Based on her recent surgery concerning for infection and patient was started sepsis protocols including blood cultures and lactate. Patient was discharged on Flagyl and Augmentin which she has completed. Was covered with IV antibiotics started on 30 cc/kilos bolus. Patient's white count is 35 which is significantly higher than the most recent at 18 on 07/13. Hemoglobin does appear stable from 07/13 at 10, platelet count is 556, chemistry show very slight decrease in sodium and chloride, normal creatinine, patient has elevated LFTs, lipase is normal with a procalcitonin 0.29 and a normal lactate. Patient states that she has only been able to urinate which has a bowel movement and patient was bladder scanned. Patient's last imaging of her abdomen was 07/[address] and 07/02 for pelvic US. Discussed with patient and I would like to repeat CT imaging today. Spoke with Dr. Wilson, plan for admission. She will notify Dr. Palafox who will take over care. She did ask that we contact Dr. Baker is patient had a appendectomy during her initial surgery. The patient is updated, she has already been started on vanc and Zosyn, no further recommendations were given by OBGYN for antibiotics currently. Pain has been improved with 4 mg of morphine. Discharge Plan Departure Patient Disposition: Admitted As Inpatient Clinical Impression: Intra-abdominal abscess post-procedure, Sepsis Discharge Date/Time: 07/20/18 10:45 Interventions: ED Discharge Assessment Last Done: 07/20/18 10:23 Referrals: Torie Bustillo DO [Primary Care Provider] - Admit Date/Time: 07/20/18 10:38 Admit Provider: Enedina Palafox
--- NOTE | 2018-07-20 08:01 | DI.CT.S_ITS ---
PROCEDURE: CT ABDOMEN PELVIS W CON INDICATIONS: post hysterectomy 07/01, swelling abdomen, tender, recent hematoma, TECHNIQUE: After the administration of intravenous contrast, 5 mm thick sections acquired from the diaphragm to the symphysis. 5 mm coronal and sagittal reformats were acquired. For radiation dose reduction, the following was used: automated exposure control, adjustment of mA and/or kV according to patient size. COMPARISON: [facility], CT, CT ABDOMEN PELVIS W CON, 07/01/2018, 7:50. FINDINGS: Image quality: Diagnostic sensitivity limited by absence of oral contrast material. ABDOMEN: Lung bases: Lung bases are clear. Heart size is normal. Solid organs: Liver is normal in size and enhancement. Hepatic cysts are stable. Gallbladder contains sludge in the dependent portion.. Biliary system is non dilated. Pancreas enhances normally. Spleen is normal in size and enhancement. No adrenal nodules. Kidneys demonstrate normal size and enhancement, without hydronephrosis. 1 mm nonobstructing stone noted in the inferior pole of the left kidney. Peritoneum and bowel: Bowel loops demonstrate normal wall thickness and caliber. No free air. Numerous multiloculated, walled off fluid collections with peripheral enhancement noted in the anterior lower pelvic wall and scattered throughout the lower pelvis. Largest fluid collection in the midline of the pelvis communicates with the anterior abdominal wall fluid collection (series 2, image 56 measuring approximately 10.9 x 11.2 x 11.3 cm in maximum dimension. Small amount of free fluid noted in the dependent portions of the lower pelvis. Appendix is surgically absent. Nodes and vessels: No retroperitoneal or mesenteric adenopathy by size criteria. Aorta and inferior vena cava are normal in size. Miscellaneous: No ventral hernias. PELVIS: Genitourinary: Bladder wall thickness is normal. Uterus is surgically absent. Miscellaneous: No inguinal hernias or adenopathy. Bones: No suspicious bony lesions. No vertebral body compression fractures. IMPRESSION: 1. Multiple, large, multiloculated abscess sinvolving the pelvis and anterior pelvic wall. 2. Findings telephoned to Dr. Tanner at 07/20/2018 at 0853 hours. Dictated by: Tori Arriaga MD, PhD on 07/20/2018 at 8:45 Approved by: Tori Arriaga MD, PhD on 07/20/2018 at 8:56
[2018-07-20 08:10] LABS: Procalcitonin 0.29 ng/mL (<0.5)
[2018-07-20] MEDS: MORPHINE 4 MG/ML INJ IV ×2 (08:19→09:49)
[2018-07-20] MEDS: SODIUM CHLORIDE 0.9% 1,564.89 ML 521.63 ML IV (08:19)
[2018-07-20 08:27] LABS: Neutrophils Absolute Manual 26850 /uL (3000-5900); Total Cells Counted 100
[2018-07-20 08:28] LABS: Hypochromasia 1+; Poikilocytosis 1+
[2018-07-20] MEDS: PIPERACILLIN-TAZO 3.375 GM/50 ML FROZ.PIGGY IV ×3 (08:49→23:58)
--- NOTE | 2018-07-20 09:05 | PC.NURSE ---
Pt stated on Arrival I just want to . I cant do this anymore.
[2018-07-20] MEDS: VANCOMYCIN 1,000 MG/200 ML FROZ.PIGGY 200 MG IV ×2 (09:16→22:22)
[2018-07-20] MEDS: HYDROMORPHONE 2 MG INJ IV (11:43)
[2018-07-20] MEDS: LACTATED RINGERS 1,000 ML 125 ML IV ×2 (11:44→22:23)
--- NOTE | 2018-07-20 11:53 | PC.NURSE ---
Addendum entered by Nahed Yu R.N. 07/20/18 13:19: Temp 100.9 Dr Palafox in to see patient, ordered 975mg tylenol PO with sip of water. Given. Pt remains NPO for planned surgery later this afternoon. Pt reports pain improved with IVP dilaudid. Original Note: Pt alert, oriented, rates pain to RLQ 7/10 and describes as shooting. Call Placed to Dr Chirinos office, orders received. 1 mg IVP dilaudid given.
[2018-07-20] MEDS: ACETAMINOPHEN 325 MG TABLET 975 MG PO (13:18)
--- NOTE | 2018-07-20 13:20 | PC.NURSE ---
While doing patients admission assessment patient was asked if she had thoughts of harming herself. Patient stated oh yes, I am so done with this pain and being sick, this has been the worst month of my life. Patient asked is she was considering suicide and if she had a plan. Patient stated oh no. Social service consult ordered and is pending. Also spoke and reviewed situation with BISI Snyder.
[2018-07-20 13:39] LABS: Appearance Urine UA CLEAR; Bilirubin Urine UA NEGATIVE (NEGATIVE); Color Urine UA YELLOW; Glucose Urine UA NEGATIVE (Negative); Ketones Urine UA 1+ (NEGATIVE); Leukocyte Esterase Urine UA NEGATIVE (NEGATIVE); Nitrite Urine UA NEGATIVE (Negative); Occult Blood Urine UA TRACE-LYSED (Negative); Protein Urine UA NEGATIVE (Negative); Specific Gravity Urine UA <=1.005 (1.000-1.035); Urobilinogen Urine UA 0.2 E.U./dL (0.2); pH Urine UA 6.5 (4.5-8.0)
[2018-07-20 13:52] LABS: Bacteria Urine Occasional (0-1); Culture Indicated Urine Cult Not Indicated; RBC Urine 0-1/HPF (0-5/HPF); Squamous Epithelial Cell Urine 0-1 /HPF (0-5/HPF); WBC Urine 0-1/HPF (0-5/HPF)
--- NOTE | 2018-07-20 15:54 | CM.SWNOTE ---
Reason for Admission: Intra-abdominal abscess with sepsis. Payor: [facility] PCP: Dr. Enedina Palafox Pt initially presented to the ED with increased pain, fever, sweating, weakness, diminished appetite and progressive weight loss. She was determined to have an abscess and was admitted for sepsis treatment and surgery. She initially expressed to her nurse in acute care I just want to , I can't do this anymore. In meeting with her, pt denies any suicidal ideation or a plan. She acknowledges feeling very tired of being this sick, and felt that she can't see the light at the end of the tunnel in terms of healing from the initial hysterectomy. SECURITY DISPATCHER offered counseling for coping and emotional support. Pt's spouse was present and offering support by bedside. She denies the need for any additional in-home care at time of discharge, however she will need assistance with completing new FMLA forms prior to discharge, in order to have time off for healing and recovery. She is working on seeing if a friend from her work can bring her new FMLA forms within the next few days. By the end of this interview, pt was smiling and expressed feeling better, emotionally, about her ability to get through this hospitalization and recover post-discharge. Encouraged her to request Faye, the SECURITY DISPATCHER, or social media manager on shift, should she feel the need for additional emotional support and assistance. Discharge Planning/Care Management CM Discharge Assessment Start: 07/20/18 15:24 Freq: Status: Active Protocol: Document 07/20/18 15:25 DPL (Rec: 07/20/18 15:52 DPL [id number]) Discharge Planning Assessment Assigned Call Person BISI Ervin DPOA/Assigned Designee Name No Contact Information Kt Mir, spouse Advance Directives? No History Provided By Patient Medical Record Has Patient been admitted in last 30 Yes days? Comment Pt had a hysterectomy on , was discharged and re- admitted on 07/07/18 fofr postoperative pain, ileus, and pelvic hematoma, discharged . Re-admitted on 07/20/18 after presenting to the ED with fever, severe pain, and swelling in the lower abdomen. She was diagnosed with an intra-abdominal abscess post- procedure with sepsis. Prior Living Arrangements Apartment/Condo Household Members spouse Comment Pt resides in her own apartment with her and two children. Type of transporation used prior to Drives own vehicle admit Independent with ADL's Yes: Pt has been completely independent with all ADL's until this infection. Is patient alert and oriented? Yes Needs Assistance With Home Chores / Shopping Caregiver for Another Yes: [facility] used prior to Home Health Nurse admission: Social Work Comment SECURITY DISPATCHER discussed the availability of Home Health as a resource for in-home f/u once pt is discharged home. She declines the need at this time, stating that she has been able to care for herself with the assistance of her at this time. SECURITY DISPATCHER offered for social work to assist with completion of her FMLA forms prior to her discharge in order for her to be able to take additional time off for healing and recovery from this infection. SECURITY DISPATCHER also offered to be availe for coping/ emotional support as she needs it, due to her feelings of frustration, feeling hopeless that she is going to be able to recover from these surgical complications, and encouragment in terms of her ability to recover and get through this hospitalization. She denies any suicidal ideation or intent at this time. She does not take an antidepressant for depression, and states that this level of sadness and frustration is very situational in nature, and that depression is not usually a concern for her. Comment N/A Comment Discharge home with no additional in-home services. Pt did state that she is afraid that this infection will come right back, and that she is fearful about not being able to heal properly from this next surgery. SECURITY DISPATCHER reassured her that steps will be taken by the hospital team to ensure that she has ongoing monitoring post-discharge in order to prevent re- hospitalization. Barriers to Discharge No Discharge Plan Home Transportation Arrangement Spouse Referrals Initiated None needed Comment yes
[2018-07-20] MEDS: LACTATED RINGERS 1,000 ML 42 ML IV ×2 (17:38→20:23)
--- NOTE | 2018-07-20 17:38 | PM.HP.1 ---
History of Present Illness Date Patient Seen: 07/20/18 Time Patient Seen: 17:38 Chief complaint: lower abd pain, has huge lump in stomach Narrative: Patient is a 33-year-old who presented to the emergency department with severe abdominal pain and swelling on the right side. She underwent an abdominal supracervical hysterectomy approximately 1 month ago. Three weeks ago had a diagnostic laparoscopy with a back UA vu of hematoma. She reports no fever at home. She has had occasional chills. She has had bowel movements and passing flatus. Patient History Medical History Irregular menstrual cycle (Chronic ~2006) Ovarian cyst (Chronic ~2004) Painful menstrual periods (Chronic ~2009) Surgical History Anesthesia (Resolved) History of delivery (Resolved) History of laparoscopy (Resolved) History of left oophorectomy (Resolved ~2012) History of tubal ligation (Resolved) Family History Father Stroke Mother Hypertension Sister Hypertension Grandfather Cancer Hypertension Grandmother Hyperlipidemia Hypertension Social History household members: spouse Smoking Status: Former smoker Family & Social History Family History Father Stroke Mother Hypertension Sister Hypertension Grandfather Cancer Hypertension Grandmother Hyperlipidemia Hypertension Social History: household members spouse Prior Living Arrangements Apartment/Condo Safety & Behavioral: Feels Safe in Current Yes Environment Been Physically Hurt or No Threatened By a Person Suicidal Ideation Description Frequent Tobacco & Substance use: Smoking Status Former smoker alcohol intake frequency holiday/special occasion Substance Use Type does not use Meds Home Medications Medication Instructions Recorded Confirmed Type multivitamin 1 tab PO DAILY 12/29/17 07/20/18 History ibuprofen 600 mg PO TID PRN #30 tab 06/27/18 07/20/18 Rx docusate sodium [Colace] 100 mg PO DAILY #20 cap 07/07/18 07/20/18 Rx ferrous gluconate 324 mg PO DAILY #30 tab 07/07/18 07/20/18 Rx oxycodone-acetaminophen 1 tab PO Q4-6H PRN #20 tab 07/07/18 07/20/18 Rx potassium chloride 1 dose PO DAILY 07/20/18 07/20/18 History Allergies Allergy/AdvReac Type Severity Reaction Status Date / Time No Known Drug Allergies Allergy Verified 07/20/18 06:57 Exam Vital Signs (past 8 hours): - 07/20/18 10:23 07/20/18 11:01 07/20/18 12:00 Temperature 99.7 F H 100.5 F H Pulse Rate 100 H 104 H Respiratory Rate 20 24 Blood Pressure 120/76 135/70 Pulse Oximetry 98 100 07/20/18 12:19 07/20/18 13:03 07/20/18 14:03 Temperature 100.5 F H 100.9 F H 101.1 F H Pulse Rate 111 H Respiratory Rate 18 Blood Pressure 131/70 Pulse Oximetry 100 07/20/18 14:26 07/20/18 15:32 07/20/18 17:08 Temperature 101.5 F H 100.4 F H 100.8 F H Pulse Rate 108 H 106 H Respiratory Rate 18 15 Blood Pressure 134/71 127/76 Pulse Oximetry 100 100 Oxygen Delivery Method Room Air Oxygen Flow Rate 0 Narrative Exam Narrative: HEENT: No thyromegaly, no anterior cervical or supraclavicular lymphadenopathy. Lungs: Clear to auscultation bilaterally, no wheezes. Cardiovascular: Regular rate and rhythm, no murmurs, rubs, or gallops. Abdomen: Well-healed Pfannenstiel.. No hepatosplenomegaly. There is a 12 cm mass palpable in the right lower quadrant just above the Pfannenstiel scar. This is tender to palpation. This is also fluctuant. External genitalia: Normal Vagina: Normal Cervix: Normal Bimanual exam: Deferred Rectal: No masses. CT: 11 cm pelvic/abdominal abscess which extends through the abdominal wall Objective Labs Result Diagrams: 07/20/18 07:05 07/20/18 07:05 Labs: Laboratory Results - last 24 hr 07/20/18 07/20/18 07/20/18 07:05 07:05 07:05 WBC 35.8 H* RBC 3.80 L Hgb 10.7 L Hct 32.6 L MCV 86.0 MCH 28.2 MCHC 32.8 RDW 14.7 Plt Count 556 H Neut % (Auto) Not Reportable Lymph % (Auto) Not Reportable [place] % (Auto) Not Reportable Eos % (Auto) Not Reportable Baso % (Auto) Not Reportable Lymph # (Auto) Not Reportable [place] # (Auto) Not Reportable Baso # (Auto) Not Reportable Total Counted 100 Seg Neutrophils % 67.0 Band Neutrophils % 8.0 H Lymphocytes % (Manual) 9.0 L Atypical Lymphs % 1.0 H Monocytes % (Manual) 12.0 H Eosinophils % (Manual) 3.0 Neutrophils # (Manual) 87538 H RBC Morphology See below Hypochromasia 1+ H Poikilocytosis 1+ H Sodium 135 L Potassium 3.6 Chloride 96 L Carbon Dioxide 24 BUN 9 Creatinine 0.60 Estimated GFR > 60.0 BUN/Creatinine Ratio 15.0 Glucose 92 Lactate 1.0 Calcium 9.4 Total Bilirubin 0.5 AST 133 H ALT 151 H Alkaline Phosphatase 186 H Total Protein 8.5 H Albumin 3.8 Globulin 4.7 H Albumin/Globulin Ratio 0.8 L Lipase 73 Procalcitonin Urine Color Urine Appearance Urine pH Ur Specific [place] Urine Protein Urine Glucose (UA) Urine Ketones Urine Occult Blood Urine Nitrate Urine Bilirubin Urine Urobilinogen Ur Leukocyte Esterase Urine RBC Urine WBC Ur Squamous Epith Cells Urine Bacteria Ur Culture Indicated? 07/20/18 07/20/18 07:05 10:30 WBC RBC Hgb Hct MCV MCH MCHC RDW Plt Count Neut % (Auto) Lymph % (Auto) [place] % (Auto) Eos % (Auto) Baso % (Auto) Lymph # (Auto) [place] # (Auto) Baso # (Auto) Total Counted Seg Neutrophils % Band Neutrophils % Lymphocytes % (Manual) Atypical Lymphs % Monocytes % (Manual) Eosinophils % (Manual) Neutrophils # (Manual) RBC Morphology Hypochromasia Poikilocytosis Sodium Potassium Chloride Carbon Dioxide BUN Creatinine Estimated GFR BUN/Creatinine Ratio Glucose Lactate Calcium Total Bilirubin AST ALT Alkaline Phosphatase Total Protein Albumin Globulin Albumin/Globulin Ratio Lipase Procalcitonin 0.29 Urine Color Yellow Urine Appearance Clear Urine pH 6.5 Ur Specific [place] <=1.005 Urine Protein Negative Urine Glucose (UA) Negative Urine Ketones 1+ H Urine Occult Blood Trace-lysed Urine Nitrate Negative Urine Bilirubin Negative Urine Urobilinogen 0.2 Ur Leukocyte Esterase Negative Urine RBC 0-1/hpf Urine WBC 0-1/hpf Ur Squamous Epith Cells 0-1 /hpf Urine Bacteria Occasional (0-1) Ur Culture Indicated? Cult not indicated Assessment & Plan Assessment & Plan narrative: Assessment: Patient is a 33-year-old with an intra abdominal/abdominal wall abscess Plan: Exploratory laparotomy with evacuation of abscess Possibility of leaving the abdominal wall opened Time Spent With Patient Time with patient: 15-24 minutes
[2018-07-20] MEDS: fentaNYL 100 MCG/2 ML INJ 50 MCG IV ×5 (18:14→20:21)
--- NOTE | 2018-07-20 18:18 | PM.CN ---
History of Present Illness Date Patient Seen: 07/20/18 Time Patient Seen: 18:00 Chief complaint: lower abd pain, has huge lump in stomach Reason for consult: Intra-abdominal abscesses Requesting provider: Enedina Palafox Narrative: The patient is a woman who had a recent laparoscopic supracervical hysterectomy and incidental appendectomy. Apparently dissection was quite difficult. She had chronic right lower abdominal/pelvic pain and that was the reason the and incidental appendectomy was performed in addition to the supracervical hysterectomy. Postoperatively she bled. It she was taken back to the operating Room laparoscopically had the blood clot suctioned free. About Monday of this week she started to feel poorly and developed fever. Her temperature today was as high as 101. She developed abdominal distention though she is eating and having bowel movements. She came to the emergency room and a CT scan was performed that showed numerous large intra-abdominal abscesses. I was asked to see her to consider taking her to the operating room to treat these. [facility] Medical History Irregular menstrual cycle (Chronic ~2006) Ovarian cyst (Chronic ~2004) Painful menstrual periods (Chronic ~2009) Surgical History Anesthesia (Resolved) History of delivery (Resolved) History of laparoscopy (Resolved) History of left oophorectomy (Resolved ~2012) History of tubal ligation (Resolved) Family History Father Stroke Mother Hypertension Sister Hypertension Grandfather Cancer Hypertension Grandmother Hyperlipidemia Hypertension Social History household members: spouse Smoking Status: Former smoker Family History Father Stroke Mother Hypertension Sister Hypertension Grandfather Cancer Hypertension Grandmother Hyperlipidemia Hypertension Social History household members: spouse Smoking Status: Former smoker Meds Home Medications Medication Instructions Recorded Confirmed Type multivitamin 1 tab PO DAILY 12/29/17 07/20/18 History ibuprofen 600 mg PO TID PRN #30 tab 04/10/19 05/03/19 Rx docusate sodium [Colace] 100 mg PO DAILY #20 cap 07/07/18 07/20/18 Rx ferrous gluconate 324 mg PO DAILY #30 tab 07/07/18 07/20/18 Rx oxycodone-acetaminophen 1 tab PO Q4-6H PRN #20 tab 07/07/18 07/20/18 Rx potassium chloride 1 dose PO DAILY 07/20/18 07/20/18 History Allergies Allergy/AdvReac Type Severity Reaction Status Date / Time No Known Drug Allergies Allergy Verified 07/20/18 06:57 Review of Systems Review of Systems No cardiac problems no cough or cold. No heart murmurs. No seizures or blackouts. No blood in her stool. No hematemesis. Exam Vital Signs (past 8 hours): - 07/20/18 10:23 07/20/18 11:01 07/20/18 12:00 Temperature 99.7 F H 100.5 F H Pulse Rate 100 H 104 H Respiratory Rate 20 24 Blood Pressure 120/76 135/70 Pulse Oximetry 98 100 07/20/18 12:19 07/20/18 13:03 07/20/18 14:03 Temperature 100.5 F H 100.9 F H 101.1 F H Pulse Rate 111 H Respiratory Rate 18 Blood Pressure 131/70 Pulse Oximetry 100 07/20/18 14:26 07/20/18 15:32 07/20/18 17:08 Temperature 101.5 F H 100.4 F H 100.8 F H Pulse Rate 108 H 106 H Respiratory Rate 18 15 Blood Pressure 134/71 127/76 Pulse Oximetry 100 100 Oxygen Delivery Method Room Air Oxygen Flow Rate 0 Narrative Exam Narrative: Very thin woman in no apparent distress. Her eyes are nonicteric. Lungs are clear to auscultation without rales or rhonchi. Heart regular rate and rhythm without murmur gallop. Abdomen lower abdomen is distinctly distended and tender. The upper abdomen is soft not distended and nontender. She is alert oriented x3. Objective Labs Result Diagrams: 07/20/18 07:05 07/20/18 07:05 Labs: Laboratory Results - last 24 hr 07/20/18 07/20/18 07/20/18 07:05 07:05 07:05 WBC 35.8 H* RBC 3.80 L Hgb 10.7 L Hct 32.6 L MCV 86.0 MCH 28.2 MCHC 32.8 RDW 14.7 Plt Count 556 H Neut % (Auto) Not Reportable Lymph % (Auto) Not Reportable [place] % (Auto) Not Reportable Eos % (Auto) Not Reportable Baso % (Auto) Not Reportable Lymph # (Auto) Not Reportable [place] # (Auto) Not Reportable Baso # (Auto) Not Reportable Total Counted 100 Seg Neutrophils % 67.0 Band Neutrophils % 8.0 H Lymphocytes % (Manual) 9.0 L Atypical Lymphs % 1.0 H Monocytes % (Manual) 12.0 H Eosinophils % (Manual) 3.0 Neutrophils # (Manual) 50164 H RBC Morphology See below Hypochromasia 1+ H Poikilocytosis 1+ H Sodium 135 L Potassium 3.6 Chloride 96 L Carbon Dioxide 24 BUN 9 Creatinine 0.60 Estimated GFR > 60.0 BUN/Creatinine Ratio 15.0 Glucose 92 Lactate 1.0 Calcium 9.4 Total Bilirubin 0.5 AST 133 H ALT 151 H Alkaline Phosphatase 186 H Total Protein 8.5 H Albumin 3.8 Globulin 4.7 H Albumin/Globulin Ratio 0.8 L Lipase 73 Procalcitonin Urine Color Urine Appearance Urine pH Ur Specific [place] Urine Protein Urine Glucose (UA) Urine Ketones Urine Occult Blood Urine Nitrate Urine Bilirubin Urine Urobilinogen Ur Leukocyte Esterase Urine RBC Urine WBC Ur Squamous Epith Cells Urine Bacteria Ur Culture Indicated? 07/20/18 07/20/18 07:05 10:30 WBC RBC Hgb Hct MCV MCH MCHC RDW Plt Count Neut % (Auto) Lymph % (Auto) [place] % (Auto) Eos % (Auto) Baso % (Auto) Lymph # (Auto) [place] # (Auto) Baso # (Auto) Total Counted Seg Neutrophils % Band Neutrophils % Lymphocytes % (Manual) Atypical Lymphs % Monocytes % (Manual) Eosinophils % (Manual) Neutrophils # (Manual) RBC Morphology Hypochromasia Poikilocytosis Sodium Potassium Chloride Carbon Dioxide BUN Creatinine Estimated GFR BUN/Creatinine Ratio Glucose Lactate Calcium Total Bilirubin AST ALT Alkaline Phosphatase Total Protein Albumin Globulin Albumin/Globulin Ratio Lipase Procalcitonin 0.29 Urine Color Yellow Urine Appearance Clear Urine pH 6.5 Ur Specific [place] <=1.005 Urine Protein Negative Urine Glucose (UA) Negative Urine Ketones 1+ H Urine Occult Blood Trace-lysed Urine Nitrate Negative Urine Bilirubin Negative Urine Urobilinogen 0.2 Ur Leukocyte Esterase Negative Urine RBC 0-1/hpf Urine WBC 0-1/hpf Ur Squamous Epith Cells 0-1 /hpf Urine Bacteria Occasional (0-1) Ur Culture Indicated? Cult not indicated Assessment & Plan Assessment & Plan narrative: Patient is a woman with tachycardia, temperature elevation, a white count of 35, multiple intra-abdominal abscesses. She should fit the criteria for sepsis. I talked to her and Dr. Palafox has as well together about taking her back to the operating room, opening her, draining the pus. Possible placing drains. Leaving the wound open. These are not amenable to non operative treatment due to their locations and the numerous nature of them. All questions were answered. She is on broad-spectrum antibiotics at this time.
--- NOTE | 2018-07-20 19:06 | SUR.OPER ---
Supine on padded OR bed, head on pillow, arms secured on padded arm boards at <90 degrees abduction, legs uncrossed, safety belt at thigh, tape over blanket over lower legs.
[2018-07-20] MEDS: BUPIVACAINE 0.5% (PF) VIAL 30 ML INJ (19:24)
--- NOTE | 2018-07-20 19:40 | SUR.OPER ---
incision packed with .5% Marcaine plain soaked 4x4's (x2).
--- NOTE | 2018-07-20 20:00 | SUR.PHASEI ---
3 abdominal drsg's observed to be c/d/i. 2 hamilton drains observed to be secure and draining red blood at this time.
--- NOTE | 2018-07-20 20:07 | P.OP_ITS ---
Operative Date/Time/Diagnoses Date of procedure: 07/20/18 Time of procedure: 19:57 Pre-op diagnosis: Multiple intra-abdominal abscesses Post-op diagnosis: same Procedure & Clinicians Procedure: Exploratory laparotomy and drainage of abscesses Same procedure as scheduled: Yes Indications: Patient with large abscesses within her abdomen, white blood cell count of 35 and fever. She was taken urgently to the operating room Surgeon: Willie Baker [employer] Team Member: Enedina Palafox Anesthesia Type: General Operative Notes Findings: Two very large abscess cavities with multiple outpouchings were encountered and drained. Tissues were not identifiable in the normal way due to the amount of inflammation and infection. Please see details in the op report Closure Type: not applicable (Wound left open) Specimen(s): other (Cultures) Applied: drain(s) (Two Frank-Redd drains. ) Estimated Blood Loss (mL): 100 Blood products transfused: none Procedure in detail: The patient was placed supine on the operating room table and underwent general endotracheal anesthesia. She was prepped and draped in the usual fashion. A You was inserted. vertical midline incision was made from the umbilicus to the suprapubic area and carried through fat. I began having purulence drainage just after entering the deep fat layer in the lower part of this incision. cultures were taken and we entered into a large cavity immediately under the subcu fat. Layer. this extended from the subcu into the peritoneal cavity. it appeared that the rectus fascia had as had the muscle. With this opened we extended our incision through it least anterior fascia superiorly to the umbilicus. identified the rectus muscle on each side. It was not mobile. The posterior fascial layer where it existed was densely adherent to the underlying tissues. I could not tell what this tissue was were. They did not easily finger fracture. They were densely adherent. I felt it was very unsafe to dissect anything off the posterior fascia as I would probably and her intestine and the patient would develop a fistula. We followed the abscess that we had entered and it extended into the deep pelvis. There are multiple channels of it and these were all gently broken down. No attempt was made to separate intestinal loops from 1 of the other because frankly they were not identifiable as separate loops. Everything was a sheet of inflamed tissue. when I felt I had broken down those mistry that I safely could and had extended into all of the little extensions of this abscess we copiously irrigated both cavities. A 10 mm Frank-Redd drain was placed into the pelvis and brought out through a separate stab wound on the left abdomen. a 7 mm Frank-Redd was placed across the midline in the superficial cavity and brought out through the right lower abdominal skin. both was secured to the patient with 3 0 nylon sutures. the only way that these drains were going to work can have suction was if I closed her anterior abdominal wall tis sues in some fashion. we loosely reapproximated the midline rectus where week good without any tension from the umbilicus prior there was no fascia to close in the lower half of this wound. therefore we brought the subcu together with the same 2 0 PDS suture. the a I a band dressing was placed across the incision and the drain sites and the bulbs were placed to suction. the patient was awakened and extubated taken to recovery room good condition. we will perform a CT scan in the very near future to determine if we have drained all the significant abscesses or not. I felt that any further dissection would risk enterotomy which in this patient could be lethal. Complications: none Condition: stable Disposition: PACU
[2018-07-20] MEDS: HYDROMORPHONE 2 MG INJ 0.25 MG IV ×8 (20:09→20:51)
--- NOTE | 2018-07-20 20:25 | PM.PREOP ---
Pre-operative Note Interval Note History & Physical reviewed/Exam performed by Physician: Yes Changes to H&P: No H&P completed within 30 days and has changed as indicated here:: Exam performed and dictation done immediately prior to operation
--- NOTE | 2018-07-20 21:03 | SUR.PHASEI ---
REPORT CALLED TO IN[facility] PATRICIO ON ACUTE CARE FLOOR. PT IN STABLE CONDITION, VSS. IV SITE CLEAR AND INFUSING WITHOUT DIFFICULTLY. DRSG'S TO SURGICAL SITES OBSERVED TO BE C/D/I. JESU DRAINS INTACT AND DRAINING RED BLOOD. CATH SECURED AND DRAINING YELLOW URINE. PT DENIES ANY NAUSEA AND STATES PAIN TOLERABLE AT THIS TIME. PT RESTING IN BED WITH EYES CLOSED AND EASILY RESPONDS TO VOICE WHEN SPOKEN TO.
--- NOTE | 2018-07-20 21:38 | SUR.PHASEI ---
PT TRANSFERRED TO FLOOR AT 2112 IN STABLE CONDITION, VSS. PT ALERT AND TALKING TO RN DURING TRANSPORT. PT IN ROOM UPON ARRIVAL TO ROOM. BEDSIDE REPORT GIVEN TO SHENG XIONG UPON ARRIVAL. TRANSFERRED CARE OF PT TO IN[facility] PATRICIO AT THAT TIME.
[2018-07-20] MEDS: GABAPENTIN 300 MG CAPSULE PO (22:23)
[2018-07-20] MEDS: KETOROLAC 30 MG/ML VIAL IV (23:57)
[2018-07-21] VITALS (13 sets, daily range): BP systolic 123–135; BP diastolic 63–82; PULSE 66–84; RESP 16–20; TEMP 36.6–36.9; O2SAT 98–100
--- NOTE | 2018-07-21 | DI.CT.S_ITS ---
PROCEDURE: CT ABDOMEN PELVIS W CON INDICATIONS: f/u after open drainage. Any abscess remaining? TECHNIQUE: After the administration of oral and intravenous contrast, 5 mm thick sections acquired from the diaphragms to the symphysis. 5 mm thick coronal and sagittal reformats were performed. For radiation dose reduction, the following was used: automated exposure control, adjustment of mA and/or kV according to patient size. COMPARISON: [facility], CT, CT ABDOMEN PELVIS W CON, 07/20/2018, 8:24. [facility], CT, CT ANGIO CHEST PE, 07/04/2018, 17:10. [facility], CT, CT ABDOMEN PELVIS W CON, 07/01/2018, 7:50. FINDINGS: Image quality: Excellent. ABDOMEN: Lung bases: Lung bases are clear. Heart size is normal. Solid organs: Liver is normal in size and enhancement. Gallbladder demonstrates biliary sludge. Biliary system is non-dilated. Pancreas enhances normally. Spleen is normal in size and enhancement. No adrenal nodules. Nodular process. Redemonstrated punctate nonobstructing nephrolith in the inferior pole of the left kidney. Peritoneum and bowel: There has been interval removal of the previously noted large multiloculated walled off fluid collections within the anterior abdominal pelvic wall and lower pelvis seen on comparison CT of 07/20/18. Small residual peripherally enhancing fluid collections within the anterior and posterior pelvis are noted such as a 1.5 cm fluid collection in the right anterior pelvis on axial image 62 of series 2 (immediately anterior to the tip of a previously placed surgical drain, and are less well-defined than on prior exam.. Diffuse colonic edema and mesenteric edema noted within the anterior abdomen and pelvis, which partially obscures adjacent infectious/inflammatory findings. Nodes and vessels: No retroperitoneal or mesenteric adenopathy. Aorta and inferior vena cava are normal in caliber. PELVIS: Genitourinary: A You catheter is noted within the decompressed bladder. Bones: No suspicious bony lesions. No vertebral body compression fractures. IMPRESSION: 1. Interval drainage and surgical removal of previously noted large multiloculated fluid collections within the anterior abdominopelvic wall and pelvis with a surgical drain noted in the pelvis. Multiple small residual peripherally enhancing abscesses measuring up 1.5 cm are identified within the anterior and posterior pelvis, but are less well-defined than on prior exam. 2. Diffuse mesenteric and colonic wall edema, which partially obscures adjacent infectious/inflammatory findings. Dictated by: Edward Dotson, M.D. on 07/21/2018 at 15:15 Approved by: Torres Dotson M.D. on 07/21/2018 at 15:27
--- NOTE | 2018-07-21 01:04 | PC.NURSE ---
Assumed care of pt at 2300 on 07/20/18. Pt awake resting in bed. Denies thoughts of self harm. Abd drsgs x3 c/d/i. JESU drains to bulb suction with mod amt of sero-sang drainage. Abd slightly distended and tender. Ice pack on abd and analgesics given prn per May. Midline IV with IVF per orders and ABX infusing. I.S. given, enc pt to use 10x/hr. SCD's on. Calling appropriately for needs.
[2018-07-21] MEDS: PIPERACILLIN-TAZO 3.375 GM/50 ML FROZ.PIGGY IV ×4 (06:12→23:40)
[2018-07-21] MEDS: KETOROLAC 30 MG/ML VIAL IV ×3 (06:26→21:22)
[2018-07-21 07:43] LABS: Hematocrit 26.2 % (36-46); Hemoglobin 8.6 g/dL (12.0-16.0); Mean Corpuscular HGB Conc 32.6 % (30-36); Mean Corpuscular Volume 85.7 fL (80-100); Platelet Count 394 X10^3/uL (150-400); Red Blood Cell Count 3.06 X10^6/uL (4.0-5.2); Red Cell Distribution Width 14.3 % (11.6-14.8); White Blood Cell Count 31.9 X10^3/uL (4.5-11.0)
[2018-07-21 07:48] LABS: Add Manual Diff / Slide Review YES
[2018-07-21 07:55] LABS: Alanine Aminotransferase 80 IU/L (9-52); Albumin 2.8 g/dL (3.5-5.0); Albumin Globulin Ratio 0.8 (1.0-2.8); Alkaline Phosphatase 116 U/L (38-126); Aspartate Aminotransferase 38 IU/L (14-36); Bilirubin Total 0.2 mg/dL (0.2-1.3); Blood Urea Nitrogen 11 mg/dL (7-17); Calcium 8.3 mg/dL (8.4-10.2); Carbon Dioxide 24 mmol/L (22-32); Chloride 102 mmol/L (98-107); Estimated Glomerular Filt Rate > 60.0 mL/min (>60); Globulin 3.6 g/dL (1.7-4.1); Glucose 119 mg/dL (70-100); HEMOLYSIS < 15 (0-50); Potassium 3.8 mmol/L (3.4-5.1); Sodium 138 mmol/L (137-145); Total Protein 6.4 g/dL (6.3-8.2)
[2018-07-21 08:26] LABS: Neutrophils Absolute Manual 29986 /uL (3000-5900); RBC Morphology Normal Morphology; Total Cells Counted 100
[2018-07-21] MEDS: GABAPENTIN 300 MG CAPSULE PO ×2 (08:50→21:23)
[2018-07-21] MEDS: ENOXAPARIN 40 MG/0.4 ML SYRINGE SUBCUT (08:50)
--- NOTE | 2018-07-21 09:18 | CM.DPNOTE ---
Faxed initial clinical to Insurance [facility] P# [phone] F# [phone] Auth # [id number]
[2018-07-21] MEDS: VANCOMYCIN 1,000 MG/200 ML FROZ.PIGGY 200 MG IV ×2 (10:33→19:49)
[2018-07-21] MEDS: LACTATED RINGERS 1,000 ML 125 ML IV ×2 (10:52→19:49)
--- NOTE | 2018-07-21 13:40 | PM.PNPO.1 ---
Subjective Date Patient Seen: 07/21/18 Time Patient Seen: 13:40 Interval history: Patient is postop day 1. After drainage of a very large complex intra-abdominal abscess. She feels much better. Had a large bowel movement prior to his CT scan done earlier. A CT was performed to make sure all of the fluid collections seen preoperatively were drained. Exam Vital Signs (past 8 hours): - 07/21/18 07:30 07/21/18 07:40 07/21/18 11:35 Temperature 98.1 F 98.3 F Pulse Rate 73 69 Respiratory Rate 18 18 Blood Pressure 135/75 130/79 Pulse Oximetry 100 100 100 07/21/18 13:20 Temperature Pulse Rate Respiratory Rate Blood Pressure Pulse Oximetry 100 Oxygen Delivery Method Room Air Oxygen Flow Rate 0 Narrative Exam Narrative: Lungs are clear with good effort. Heart regular rate and rhythm. abdomen is remarkably soft and has minimal tenderness. drainage is mostly serous and is not cloudy. Objective Labs Result Diagrams: 07/21/18 07:30 07/21/18 07:30 Labs: Laboratory Results - last 24 hr 07/20/18 07/21/18 07/21/18 10:30 07:30 07:30 WBC 31.9 H* RBC 3.06 L Hgb 8.6 L Hct 26.2 L MCV 85.7 MCH 28.0 MCHC 32.6 RDW 14.3 Plt Count 394 Neut % (Auto) Not Reportable Lymph % (Auto) Not Reportable [place] % (Auto) Not Reportable Eos % (Auto) Not Reportable Baso % (Auto) Not Reportable Lymph # (Auto) Not Reportable [place] # (Auto) Not Reportable Baso # (Auto) Not Reportable Total Counted 100 Seg Neutrophils % 72.0 H Band Neutrophils % 22.0 H Lymphocytes % (Manual) 3.0 L Monocytes % (Manual) 3.0 Neutrophils # (Manual) 79518 H RBC Morphology Normal morphology Sodium 138 Potassium 3.8 Chloride 102 Carbon Dioxide 24 BUN 11 Creatinine 0.50 L Estimated GFR > 60.0 BUN/Creatinine Ratio 22.0 Glucose 119 H Calcium 8.3 L Total Bilirubin 0.2 AST 38 H ALT 80 H Alkaline Phosphatase 116 D Total Protein 6.4 Albumin 2.8 L Globulin 3.6 Albumin/Globulin Ratio 0.8 L Urine Color Yellow Urine Appearance Clear Urine pH 6.5 Ur Specific [place] <=1.005 Urine Protein Negative Urine Glucose (UA) Negative Urine Ketones 1+ H Urine Occult Blood Trace-lysed Urine Nitrate Negative Urine Bilirubin Negative Urine Urobilinogen 0.2 Ur Leukocyte Esterase Negative Urine RBC 0-1/hpf Urine WBC 0-1/hpf Ur Squamous Epith Cells 0-1 /hpf Urine Bacteria Occasional (0-1) Ur Culture Indicated? Cult not indicated Assessment & Plan Post-op Postoperative Procedures Operation Date: 07/20/18 17:00 Actual Procedures Side Surgeon p Exploratory Laparotomy CHIEF CONSTRUCTION INSPECTOR Enedina Palafox MD Postoperative day: 1 Postoperative status: doing well Postoperative status narrative: I reviewed the CT scan myself. I think we have drained all of the significant fluid collections in her abdomen. I really do not see any that we missed. I will, however that there is no contrast in the pelvic small bowel loops yet at the time of CT. Postoperative plan narrative: Continue broad-spectrum antibiotics including coverage for MRSA until the cultures are known. At this time Gram stain only shows a g negative isidro. We will begin clear liquid diet. Patient is hungry, she had bowel function even when she had these large abscesses and so I probably can safely start something going through her intestinal tract.
--- NOTE | 2018-07-21 13:43 | P.PN_ITS ---
Subjective Date Patient Seen: 07/21/18 Time Patient Seen: 13:40 Interval history: Patient is postop day 1. After drainage of a very large complex intra-abdominal abscess. She feels much better. Had a large bowel movement prior to his CT scan done earlier. A CT was performed to make sure all of the fluid collections seen preoperatively were drained. Exam Vital Signs (past 8 hours): - 07/21/18 07:30 07/21/18 07:40 07/21/18 11:35 Temperature 98.1 F 98.3 F Pulse Rate 73 69 Respiratory Rate 18 18 Blood Pressure 135/75 130/79 Pulse Oximetry 100 100 100 07/21/18 13:20 Temperature Pulse Rate Respiratory Rate Blood Pressure Pulse Oximetry 100 Oxygen Delivery Method Room Air Oxygen Flow Rate 0 Narrative Exam Narrative: Lungs are clear with good effort. Heart regular rate and rhythm. abdomen is remarkably soft and has minimal tenderness. drainage is mostly serous and is not cloudy. Objective Labs Result Diagrams: 07/21/18 07:30 07/21/18 07:30 Labs: Laboratory Results - last 24 hr 07/20/18 07/21/18 07/21/18 10:30 07:30 07:30 WBC 31.9 H* RBC 3.06 L Hgb 8.6 L Hct 26.2 L MCV 85.7 MCH 28.0 MCHC 32.6 RDW 14.3 Plt Count 394 Neut % (Auto) Not Reportable Lymph % (Auto) Not Reportable [place] % (Auto) Not Reportable Eos % (Auto) Not Reportable Baso % (Auto) Not Reportable Lymph # (Auto) Not Reportable [place] # (Auto) Not Reportable Baso # (Auto) Not Reportable Total Counted 100 Seg Neutrophils % 72.0 H Band Neutrophils % 22.0 H Lymphocytes % (Manual) 3.0 L Monocytes % (Manual) 3.0 Neutrophils # (Manual) 54787 H RBC Morphology Normal morphology Sodium 138 Potassium 3.8 Chloride 102 Carbon Dioxide 24 BUN 11 Creatinine 0.50 L Estimated GFR > 60.0 BUN/Creatinine Ratio 22.0 Glucose 119 H Calcium 8.3 L Total Bilirubin 0.2 AST 38 H ALT 80 H Alkaline Phosphatase 116 D Total Protein 6.4 Albumin 2.8 L Globulin 3.6 Albumin/Globulin Ratio 0.8 L Urine Color Yellow Urine Appearance Clear Urine pH 6.5 Ur Specific [place] <=1.005 Urine Protein Negative Urine Glucose (UA) Negative Urine Ketones 1+ H Urine Occult Blood Trace-lysed Urine Nitrate Negative Urine Bilirubin Negative Urine Urobilinogen 0.2 Ur Leukocyte Esterase Negative Urine RBC 0-1/hpf Urine WBC 0-1/hpf Ur Squamous Epith Cells 0-1 /hpf Urine Bacteria Occasional (0-1) Ur Culture Indicated? Cult not indicated Assessment & Plan Post-op Postoperative Procedures Operation Date: 07/20/18 17:00 Actual Procedures Side Surgeon p Exploratory Laparotomy FREIGHT TEAM ASSOCIATE Enedina Palafox MD Postoperative day: 1 Postoperative status: doing well Postoperative status narrative: I reviewed the CT scan myself. I think we have drained all of the significant fluid collections in her abdomen. I really do n ot see any that we missed. I will, however that there is no contrast in the pelvic small bowel loops yet at the time of CT. Postoperative plan narrative: Continue broad-spectrum antibiotics including coverage for MRSA until the cultures are known. At this time Gram stain only shows a g negative isidro. We will begin clear liquid diet. Patient is hungry, she had bowel function even when she had these large abscesses and so I probably can safely start something going through her intestinal tract.
[2018-07-21] MEDS: MORPHINE 4 MG/ML INJ IV ×2 (17:23→23:44)
--- NOTE | 2018-07-21 22:26 | PC.NURSE ---
Pt up in room. Thought she might be about to have a BM - requesting brown cath to be removed. Surgeon ok'd. Pt felt more comfortable but no BM. Has Given Toradol for pain at HS. JESU drains putting out minimal drainage in both.
[2018-07-22] VITALS (8 sets, daily range): BP systolic 116–146; BP diastolic 67–86; PULSE 57–79; RESP 16; TEMP 36.7–37.1; O2SAT 99–100
[2018-07-22] MEDS: VANCOMYCIN 1,000 MG/200 ML FROZ.PIGGY 200 MG IV (02:56)
[2018-07-22] MEDS: PIPERACILLIN-TAZO 3.375 GM/50 ML FROZ.PIGGY IV ×3 (05:36→19:00)
[2018-07-22] MEDS: KETOROLAC 30 MG/ML VIAL IV ×2 (06:05→17:44)
[2018-07-22 06:37] LABS: Hematocrit 24.6 % (36-46); Hemoglobin 7.9 g/dL (12.0-16.0); Mean Corpuscular HGB Conc 32.3 % (30-36); Mean Corpuscular Volume 86.8 fL (80-100); Platelet Count 429 X10^3/uL (150-400); Red Blood Cell Count 2.83 X10^6/uL (4.0-5.2); Red Cell Distribution Width 14.2 % (11.6-14.8); White Blood Cell Count 24.8 X10^3/uL (4.5-11.0)
[2018-07-22] MEDS: LACTATED RINGERS 1,000 ML 125 ML IV ×2 (06:54→16:07)
[2018-07-22 07:13] LABS: Procalcitonin 0.14 ng/mL (<0.5)
[2018-07-22 08:10] LABS: Neutrophils Absolute Manual 19344 /uL (3000-5900); Total Cells Counted 100
[2018-07-22 08:11] LABS: Hypochromasia 1+
[2018-07-22] MEDS: ENOXAPARIN 40 MG/0.4 ML SYRINGE SUBCUT (08:58)
[2018-07-22] MEDS: GABAPENTIN 300 MG CAPSULE PO ×2 (08:59→20:37)
[2018-07-22] MEDS: MORPHINE 4 MG/ML INJ IV ×2 (10:27→16:07)
--- NOTE | 2018-07-22 11:03 | PC.NURSE ---
Dressing removed and changed with Dr. Baker. No drainage or redness. New wet to dry and occlusive dressing applied. Pt tolerated well.
--- NOTE | 2018-07-22 13:33 | CM.DPC ---
DCP Cont: Per MD, pt currently on IV-Abx and CT scan looks good. Pt currently on clear liquid with plan to advance diet to see how pt tolerates. completed dressing change successfully today. Plan: SW to follow for likely plan of d/c home with supportive spouse when medically stable. Rule out HH for wound/dressing changes closer to d/c. BISI Bliss
--- NOTE | 2018-07-22 14:09 | PM.PNPO.1 ---
Subjective Date Patient Seen: 07/22/18 Time Patient Seen: 11:00 Interval history: Patient feels much better. Eating well. No nausea. Had bowel movements. Would like real food. Exam Vital Signs (past 8 hours): - 07/22/18 06:10 07/22/18 08:30 07/22/18 09:33 Temperature 98.1 F 98.1 F Pulse Rate 57 L 79 Respiratory Rate 16 16 Blood Pressure 135/67 116/76 Pulse Oximetry 100 100 100 Oxygen Delivery Method Room Air Oxygen Flow Rate 0 Narrative Exam Narrative: Lungs clear. No rales or rhonchi. Fair movement. Wound is healthy. Dressings changed. Abdomen is soft. No cellulitis. Objective Labs Result Diagrams: 07/22/18 06:20 07/21/18 07:30 Labs: Laboratory Results - last 24 hr 07/22/18 07/22/18 06:20 06:20 WBC 24.8 H RBC 2.83 L Hgb 7.9 L Hct 24.6 L MCV 86.8 MCH 28.0 MCHC 32.3 RDW 14.2 Plt Count 429 H Total Counted 100 Seg Neutrophils % 48.0 Band Neutrophils % 30.0 H Lymphocytes % (Manual) 14.0 L D Atypical Lymphs % 2.0 H Monocytes % (Manual) 5.0 Eosinophils % (Manual) 1.0 L Neutrophils # (Manual) 62222 H RBC Morphology See below Hypochromasia 1+ H Procalcitonin 0.14 Assessment & Plan Post-op Postoperative Procedures Operation Date: 07/20/18 17:00 Actual Procedures Side Surgeon p Exploratory Laparotomy ASSEMBLY LOADER Enedina Palafox MD Postoperative status: doing well Postoperative status narrative: Continue broad-spectrum antibiotics. Given the fact that she failed Unasyn in the past will leave her on present regimen. Postoperative plan narrative: Continue IV antibiotics. Advance diet. Reviewed CT report. I suspect that the areas of small 1.5 cm abscesses have actually been drained. This may represent small blood clots. In any event these would be too small to drain percutaneously and should be able to be treated adequately with IV antibiotics
--- NOTE | 2018-07-22 14:12 | P.PN_ITS ---
Subjective Date Patient Seen: 07/22/18 Time Patient Seen: 11:00 Interval history: Patient feels much better. Eating well. No nausea. Had bowel movements. Would like real food. Exam Vital Signs (past 8 hours): - 07/22/18 06:10 07/22/18 08:30 07/22/18 09:33 Temperature 98.1 F 98.1 F Pulse Rate 57 L 79 Respiratory Rate 16 16 Blood Pressure 135/67 116/76 Pulse Oximetry 100 100 100 Oxygen Delivery Method Room Air Oxygen Flow Rate 0 Narrative Exam Narrative: Lungs clear. No rales or rhonchi. Fair movement. Wound is healthy. Dressings changed. Abdomen is soft. No cellulitis. Objective Labs Result Diagrams: 07/22/18 06:20 07/21/18 07:30 Labs: Laboratory Results - last 24 hr 07/22/18 07/22/18 06:20 06:20 WBC 24.8 H RBC 2.83 L Hgb 7.9 L Hct 24.6 L MCV 86.8 MCH 28.0 MCHC 32.3 RDW 14.2 Plt Count 429 H Total Counted 100 Seg Neutrophils % 48.0 Band Neutrophils % 30.0 H Lymphocytes % (Manual) 14.0 L D Atypical Lymphs % 2.0 H Monocytes % (Manual) 5.0 Eosinophils % (Manual) 1.0 L Neutrophils # (Manual) 77573 H RBC Morphology See below Hypochromasia 1+ H Procalcitonin 0.14 Assessment & Plan Post-op Postoperative Procedures Operation Date: 07/20/18 17:00 Actual Procedures Side Surgeon p Exploratory Laparotomy CMM OPERATOR Enedina Palafox MD Postoperative status: doing well Postoperative status narrative: Continue broad-spectrum antibiotics. Given the fact that she failed Unasyn in the past will leave her on present regimen. Postoperative plan narrative: Continue IV antibiotics. Advance diet. Reviewed CT report. I suspect that the areas of small 1.5 cm abscesses have actually been drained. This may represent small blood clots. In any event these would be too small to drain percutaneously and should be able to be treated adequately with IV antibiotics
--- NOTE | 2018-07-22 19:54 | PM.PN.1 ---
Subjective Date Patient Seen: 07/22/18 Time Patient Seen: 19:54 Interval history: Patient is a 33 year postop day # 2 status post exploratory laparotomy with evacuation of multiple abscesses and placement of drains. This was performed with Dr. Baker. Patient is feeling much better. She is tolerating a diet. No nausea or vomiting. She has had 2 bowel movements since surgery. Both of these occurred yesterday. She feels a lot of gas but is unable to pass it at this time. Exam Vital Signs (past 8 hours): - 07/22/18 12:30 07/22/18 16:00 07/22/18 16:08 Temperature 98.2 F 98.3 F Pulse Rate 72 74 Respiratory Rate 16 16 Blood Pressure 143/86 H 146/80 H Pulse Oximetry 100 99 99 Oxygen Delivery Method Room Air Oxygen Flow Rate 0 Narrative Exam Narrative: Generally: Patient is sitting up in bed, no acute distress Lungs: Clear to auscultation bilaterally Cardiovascular: Regular rate and rhythm Abdomen: Soft, flat, good bowel sounds Incision: Clean dry and intact with bandage. Drains: 7 cc in the right drained, 4 cc in the left drain. Serous sanguinous fluid in the bulbs. Extremities: Negative Homans, no edema Objective Labs Result Diagrams: 07/22/18 06:20 07/21/18 07:30 Labs: Laboratory Results - last 24 hr 07/22/18 07/22/18 06:20 06:20 WBC 24.8 H RBC 2.83 L Hgb 7.9 L Hct 24.6 L MCV 86.8 MCH 28.0 MCHC 32.3 RDW 14.2 Plt Count 429 H Total Counted 100 Seg Neutrophils % 48.0 Band Neutrophils % 30.0 H Lymphocytes % (Manual) 14.0 L D Atypical Lymphs % 2.0 H Monocytes % (Manual) 5.0 Eosinophils % (Manual) 1.0 L Neutrophils # (Manual) 05817 H RBC Morphology See below Hypochromasia 1+ H Procalcitonin 0.14 Assessment & Plan Assessment & Plan narrative: Assessment: Postop day # 2 status post exploratory laparotomy with evacuation of multiple abscesses and placement of drains. White count down significantly No fever Patient feels the urge to pass gas but is unable Plan: Simethicone added Glycerin suppository in the morning if no flatus Continue Zosyn Continue daily dressing changes Time Spent With Patient Time with patient: 15-24 minutes
--- NOTE | 2018-07-22 19:58 | PM.PN.1 ---
Subjective Date Patient Seen: 07/21/18 Time Patient Seen: 12:30 Interval history: Patient is a 33-year-old postop day # 1 status post exploratory laparotomy with evacuation of abscesses and placement of drains Incision inspected and packing change done by Dr. Baker earlier today Patient is passing flatus. She had a large bowel movement this morning. No nausea or vomiting. Exam Vital Signs (past 8 hours): - 07/22/18 12:30 07/22/18 16:00 07/22/18 16:08 Temperature 98.2 F 98.3 F Pulse Rate 72 74 Respiratory Rate 16 16 Blood Pressure 143/86 H 146/80 H Pulse Oximetry 100 99 99 Oxygen Delivery Method Room Air Oxygen Flow Rate 0 Narrative Exam Narrative: Generally: Patient lying in bed, no acute distress Lungs: Clear to auscultation bilaterally Cardiovascular: Regular rate and rhythm Abdomen: Soft and flat. Good bowel sounds Incision: Clean dry and intact with dressing Drains: 10 cc of serosanguineous drainage on the right, 5 cc of serosanguineous drainage in the left drain. Extremities: Negative Homans, no edema Objective Labs Result Diagrams: 07/22/18 06:20 07/21/18 07:30 Labs: Laboratory Results - last 24 hr 07/22/18 07/22/18 06:20 06:20 WBC 24.8 H RBC 2.83 L Hgb 7.9 L Hct 24.6 L MCV 86.8 MCH 28.0 MCHC 32.3 RDW 14.2 Plt Count 429 H Total Counted 100 Seg Neutrophils % 48.0 Band Neutrophils % 30.0 H Lymphocytes % (Manual) 14.0 L D Atypical Lymphs % 2.0 H Monocytes % (Manual) 5.0 Eosinophils % (Manual) 1.0 L Neutrophils # (Manual) 67448 H RBC Morphology See below Hypochromasia 1+ H Procalcitonin 0.14 Assessment & Plan Assessment & Plan narrative: Assessment: Postop day # 1 status post exploratory laparotomy with evacuation of abscesses and placement of drains Patient looking remarkably better White blood count down Plan: Continue antibiotics until final culture returned Continue packing changes once a day Advanced diet per General surgery Time Spent With Patient Time with patient: 15-24 minutes
[2018-07-22] MEDS: SIMETHICONE 80 MG TABLET PO (20:30)
--- NOTE | 2018-07-22 20:41 | PC.NURSE ---
1915- Dr Palafox in with pt. BT+, mild distention, tender, denies nausea, midline drsg CDI, L&R JESU drains with min serosang drainage. New orders for simethicone 80mg chew QID for gas, and if no flatus by 0700, glycerin supp for constipation. Ambulated hallway, received sponge bath, provided prune juice, pain managed well with morphine and ketorolac. ISIDRO midline LR @ 125 and ABO's. BSC to void.
[2018-07-23] VITALS (11 sets, daily range): BP systolic 107–158; BP diastolic 70–84; PULSE 49–62; RESP 16–19; TEMP 36.6–36.9; O2SAT 98–100
[2018-07-23] MEDS: PIPERACILLIN-TAZO 3.375 GM/50 ML FROZ.PIGGY IV ×4 (00:01→18:00)
[2018-07-23] MEDS: KETOROLAC 30 MG/ML VIAL IV ×3 (00:04→14:58)
[2018-07-23] MEDS: LACTATED RINGERS 1,000 ML 125 ML IV ×3 (03:20→16:54)
[2018-07-23] MEDS: MORPHINE 4 MG/ML INJ IV ×3 (03:20→16:47)
[2018-07-23] MEDS: ONDANSETRON 4 MG/2 ML INJ IV (03:23)
[2018-07-23] MEDS: GABAPENTIN 300 MG CAPSULE PO ×2 (09:57→21:25)
--- NOTE | 2018-07-23 15:23 | PC.NURSE ---
This auto service writer was told by cook night RN that abd dressings were going to be changed today by Dr Palafox, so this auto service writer did not change.
--- NOTE | 2018-07-23 19:25 | P.PN_ITS ---
Subjective Date Patient Seen: 07/23/18 Time Patient Seen: 17:40 Interval history: Patient is a 33-year-old postop day # 3 from exploratory laparotomy with evacuation of multiple abscesses and placement of drains. Patient feels well. She had a bowel movement and flatus this morning. She is tolerating a diet. Her pain is well controlled. Exam Vital Signs (past 8 hours): - 07/23/18 13:21 07/23/18 14:16 07/23/18 16:54 Temperature 98.2 F 98.5 F Pulse Rate 62 49 L Respiratory Rate 16 19 Blood Pressure 143/76 H 107/84 Pulse Oximetry 100 99 99 Oxygen Delivery Method Room Air Oxygen Flow Rate 0 Narrative Exam Narrative: Drain output: Right side approximately 20 cc since this morning, left side approximately 15 cc since this morning. Both drains are putting out serosanguineous fluid. Generally: Patient is sitting up in bed, ready to eat dinner, no acute distress Lungs: Clear to auscultation bilaterally Cardiovascular: Regular rate and rhythm Abdomen: Soft and flat. Good bowel sounds Incision: Clean dry and intact with bandages Procedure: Bandages were taken down. The 4x4s were removed from the incision. There is no erythema or evidence of infection in the incision. the incision was packed with 4x4s with sterile saline. The drains were covered with slatted 2 x 2's. All of the incisions were covered with [place]. The patient tolerated this well. Extremities: Negative Homans Objective Labs Result Diagrams: 07/22/18 06:20 07/21/18 07:30 Assessment & Plan Post-op Postoperative Procedures Operation Date: 07/20/18 17:00 Actual Procedures Side Surgeon p Exploratory Laparotomy LONG FILLER CIGAR ROLLER MACHINE Enedina Palafox MD Postoperative day: 3 Postoperative status: doing well Postoperative status narrative: Assessment: Postop day # 3 status post exploratory lap with evacuation of hematomas and placement of drains. Patient doing well. Postoperative plan narrative: Continue Zosyn Continue once a day packing changes Ambulate Time Spent With Patient 15-24 minutes
--- NOTE | 2018-07-23 23:24 | PC.NURSE ---
Evening note: Adria Ox3, reports pain 3/10 at rest, to lower abdomen. Pre-medicated with Morphine 4 mg IV prior to drsg change. Dr Palafox here earlier this evening to change wet-to-dry abdominal drsg. Open incision tissue looks very good, is pale pink in color, moisés-incision without erythema. JESU's present with small amt of sero-sang in bulbs, bulbs compressed & active. VS stable. RA oxygen high 90's and lungs are clear. Denies nausea, tolerating regular foods, denies any gas pain or need for Simethicone. Midline IV intact, IV LR infusing at 125 ml/hour. She is voiding dilute yellow urine via BSC, independently transferring self to BSC when needs. She is calling nurse appropriately for needs/concerns & encouraged to do so.
[2018-07-24] VITALS (13 sets, daily range): BP systolic 141–178; BP diastolic 77–86; PULSE 45–63; RESP 16–19; TEMP 36.7–37.3; O2SAT 99–100
[2018-07-24] MEDS: PIPERACILLIN-TAZO 3.375 GM/50 ML FROZ.PIGGY IV ×4 (00:31→17:09)
[2018-07-24] MEDS: KETOROLAC 30 MG/ML VIAL IV ×2 (00:31→08:48)
[2018-07-24] MEDS: LACTATED RINGERS 1,000 ML 125 ML IV (02:03)
[2018-07-24] MEDS: MORPHINE 4 MG/ML INJ IV ×3 (02:03→21:39)
[2018-07-24] MEDS: GABAPENTIN 300 MG CAPSULE PO ×2 (08:48→21:36)
[2018-07-24] MEDS: SIMETHICONE 80 MG TABLET PO (08:49)
--- NOTE | 2018-07-24 10:49 | PC.NURSE ---
Addendum entered by Ruchi Islas R.N. 07/24/18 14:18: MS - pt declined chair this afternoon, did ambul hallway a 2nd time before lunch, declines pain medications, fabrice gen diet. Original Note: AM NOTE - awake, did not sleep well during night, up freq to void, Dr. Palafox in this am and midline iv hep locked, pain 3 on scale 0/10, discussed medications, dosages and timing, given 30mg iv toradol, hr devin 54, ra 99%, abd slightly distended, some gas like discomfort, has had bm and flatus, given simeth. chew this am, dsg cdi, [place] x2 compressed with small qty serosang, pt declines lovenox shot, explained rationale for prevention blood clots as pt did not have scd on, states moving indep in bed and mobilizing frequently, enc ambulation and later am, using fww, forestry instructor standby assist, ambul hallway, ret bed, enc up to chair later am.
[2018-07-24] MEDS: LACTOBACILLUS ACIDOPHILUS TABLET 1 EACH PO (16:37)
[2018-07-24] MEDS: ONDANSETRON 4 MG/2 ML INJ IV (19:30)
[2018-07-25] VITALS (7 sets, daily range): BP systolic 128–143; BP diastolic 71–85; PULSE 54–62; RESP 16; TEMP 37–37.2; O2SAT 99–100
[2018-07-25] MEDS: PIPERACILLIN-TAZO 3.375 GM/50 ML FROZ.PIGGY IV ×4 (00:26→18:14)
--- NOTE | 2018-07-25 00:40 | PC.NURSE ---
Sash Clamp Operator Note: 0030: Awake, states her pain is minimal and does not need pain medication at this time. Pt states the JESU bulb on the right side inflates soon after it is compressed; bulb compressed and reinflated within 3 minutes. Small amt serosanguinous drainage in bulb. Lt JESU intact and compressed, and abdominal dressing clean and intact. Midline IV intact in lt upper arm, with dressing cdi.
[2018-07-25 06:18] LABS: Add Manual Diff / Slide Review NO; Basophils Absolute Auto 100 /uL (0-100); Basophils Percent Auto 0.6 % (0-2); Eosinophils Absolute Auto 500 /uL (0-450); Eosinophils Percent Auto 3.6 % (2-4); Hematocrit 23.7 % (36-46); Hemoglobin 7.9 g/dL (12.0-16.0); Lymphocytes Absolute Auto 3200 /uL (1100-4500); Lymphocytes Percent Auto 21.3 % (25-40); Mean Corpuscular HGB Conc 33.4 % (30-36); Mean Corpuscular Hemoglobin 28.5 PG (26-34); Mean Corpuscular Volume 85.2 fL (80-100); Monocytes Absolute Auto 1400 /uL (0-900); Monocytes Percent Auto 9.6 % (3-14); Neutrophils Absolute Auto 9800 /uL (1500-7000); Neutrophils Percent Auto 64.9 % (50-75); Platelet Count 367 X10^3/uL (150-400); Red Blood Cell Count 2.77 X10^6/uL (4.0-5.2); Red Cell Distribution Width 13.9 % (11.6-14.8); White Blood Cell Count 15.1 X10^3/uL (4.5-11.0)
[2018-07-25] MEDS: LACTOBACILLUS ACIDOPHILUS TABLET 1 EACH PO ×2 (08:48→16:16)
[2018-07-25] MEDS: GABAPENTIN 300 MG CAPSULE PO ×2 (08:48→20:16)
[2018-07-25] MEDS: MULTIVIT,CALC,MINS/IRON/FOLIC 1 TABLET 1 TAB PO (08:48)
[2018-07-25] MEDS: MORPHINE 4 MG/ML INJ IV ×2 (11:45→20:30)
[2018-07-25] MEDS: ONDANSETRON 4 MG/2 ML INJ IV (11:46)
--- NOTE | 2018-07-25 14:10 | CM.DPC ---
DCP Cont: Per MD, pt making progress and still with JESU bulb and seems to be tolerating general diet and ambulating some. Pt not quite medically stable for discharge yet. Plan: SW to follow for likely pt d/c home when medically stable. SW to follow for any further identified discharge planning needs. BISI Bliss
[2018-07-25] MEDS: POLYETHYLENE GLYCOL 3350 17 GM POWD.PACK PO (16:15)
--- NOTE | 2018-07-25 19:29 | PM.PNPO.1 ---
Subjective Date Patient Seen: 07/25/18 Time Patient Seen: 08:29 Interval history: Patient feels pretty well today. Up moving around. Little trouble moving her bowels she would like to have something to keep them moving regularly. She does not think that her intake and output match very well. She thinks she is retaining stool. Exam Vital Signs (past 8 hours): - 07/25/18 16:23 Temperature 98.7 F Pulse Rate 58 L Respiratory Rate 16 Blood Pressure 128/74 Pulse Oximetry 100 Oxygen Delivery Method Room Air Oxygen Flow Rate 0 Narrative Exam Narrative: Lungs are clear with good effort. Heart regular rate and rhythm without murmur gallop. Abdomen is soft there is no unusual tenderness. dressing is intact. drainage is mostly serous and little cloudy. Objective Labs Result Diagrams: 07/25/18 06:06 07/21/18 07:30 Labs: Laboratory Results - last 24 hr 07/25/18 06:06 WBC 15.1 H RBC 2.77 L Hgb 7.9 L Hct 23.7 L MCV 85.2 MCH 28.5 MCHC 33.4 RDW 13.9 Plt Count 367 Neut % (Auto) 64.9 Lymph % (Auto) 21.3 L [place] % (Auto) 9.6 Eos % (Auto) 3.6 Baso % (Auto) 0.6 Neut # (Auto) 9800 H Lymph # (Auto) 3200 [place] # (Auto) 1400 H Eos # (Auto) 500 H Baso # (Auto) 100 Assessment & Plan Post-op Postoperative Procedures Operation Date: 07/20/18 17:00 Actual Procedures Side Surgeon p Exploratory Laparotomy SUPERVISOR MULTIFOCAL LENS Enedina Palafox MD Postoperative status: doing well Postoperative status narrative: White blood cell count now down to 15 without a left shift. This is a marked improvement. Postoperative plan narrative: Continue broad-spectrum antibiotics. Regular diet. MiraLax to keep her stool soft. Routine wound care.
--- NOTE | 2018-07-25 19:32 | P.PN_ITS ---
Subjective Date Patient Seen: 07/25/18 Time Patient Seen: 08:29 Interval history: Patient feels pretty well today. Up moving around. Little trouble moving her bowels she would like to have something to keep them moving regularly. She does not think that her intake and output match very well. She thinks she is retaining stool. Exam Vital Signs (past 8 hours): - 07/25/18 16:23 Temperature 98.7 F Pulse Rate 58 L Respiratory Rate 16 Blood Pressure 128/74 Pulse Oximetry 100 Oxygen Delivery Method Room Air Oxygen Flow Rate 0 Narrative Exam Narrative: Lungs are clear with good effort. Heart regular rate and rhythm without murmur gallop. Abdomen is soft there is no unusual tenderness. dressi ng is intact. drainage is mostly serous and little cloudy. Objective Labs Result Diagrams: 07/25/18 06:06 07/21/18 07:30 Labs: Laboratory Results - last 24 hr 07/25/18 06:06 WBC 15.1 H RBC 2.77 L Hgb 7.9 L Hct 23.7 L MCV 85.2 MCH 28.5 MCHC 33.4 RDW 13.9 Plt Count 367 Neut % (Auto) 64.9 Lymph % (Auto) 21.3 L [place] % (Auto) 9.6 Eos % (Auto) 3.6 Baso % (Auto) 0.6 Neut # (Auto) 9800 H Lymph # (Auto) 3200 [place] # (Auto) 1400 H Eos # (Auto) 500 H Baso # (Auto) 100 Assessment & Plan Post-op Postoperative Procedures Operation Date: 07/20/18 17:00 Actual Procedures Side Surgeon p Exploratory Laparotomy MANOMETER TECHNICIAN Enedina Palafox MD Postoperative status: doing well Postoperative status narrative: White blood cell count now down to 15 without a left shift. This is a marked improvement. Postoperative plan narrative: Continue broad-spectrum antibiotics. Regular diet. MiraLax to keep her stool soft. Routine wound care.
[2018-07-25] MEDS: KETOROLAC 30 MG/ML VIAL IV (20:16)
[2018-07-26] VITALS (14 sets, daily range): BP systolic 119–141; BP diastolic 69–88; PULSE 49–75; RESP 16–18; TEMP 36.5–37.7; O2SAT 97–100
[2018-07-26] MEDS: PIPERACILLIN-TAZO 3.375 GM/50 ML FROZ.PIGGY IV ×4 (00:36→18:33)
--- NOTE | 2018-07-26 01:57 | PC.NURSE ---
Online Trader Note: 0045: Resting in bed. Vital signs stable. Midline IV in place in lt upper arm with dressing cdi. Dressings to abdomen intact and clean, and 2 JPs intact and compressed. Pt denies pain at this time.
[2018-07-26] MEDS: LACTOBACILLUS ACIDOPHILUS TABLET 1 EACH PO ×2 (10:19→17:16)
[2018-07-26] MEDS: MULTIVIT,CALC,MINS/IRON/FOLIC 1 TABLET 1 TAB PO (10:20)
[2018-07-26] MEDS: GABAPENTIN 300 MG CAPSULE PO ×2 (10:20→20:05)
[2018-07-26] MEDS: MORPHINE 4 MG/ML INJ IV ×2 (13:37→21:47)
--- NOTE | 2018-07-26 15:46 | PM.PN.1 ---
Subjective Date Patient Seen: 07/26/18 Time Patient Seen: 10:45 Interval history: Hospital day # 7 Postop day # 7 status post exploratory lap with evacuation of multiple abscesses and placement of drains Patient is feeling well. Drains putting out small amount of serosanguineous drainage. Exam Vital Signs (past 8 hours): - 07/26/18 09:00 07/26/18 09:20 07/26/18 13:00 Temperature 99.3 F 99.3 F Pulse Rate 68 65 Respiratory Rate 16 16 Blood Pressure 133/88 119/70 Pulse Oximetry 100 100 100 Oxygen Delivery Method Room Air Oxygen Flow Rate 0 Narrative Exam Narrative: Right drain with 7 cc of serosanguineous drainage Left drain with 5 cc of serosanguineous drainage Generally: Patient is sitting up in bed, no acute distress Lungs: Clear to auscultation bilaterally Cardiovascular: Regular rate and rhythm Abdomen: Soft and flat. Good bowel sounds in all 4 quadrants Incisions: Clean dry and intact with bandages. No drainage. no redness around the incisions. Extremities: Negative Homans, no edema Objective Labs Result Diagrams: 07/25/18 06:06 07/21/18 07:30 Assessment & Plan Assessment & Plan narrative: Assessment: Postop day # 7 status post ex lap with evacuation of multiple abscesses and placement of drains Patient doing very well Plan: Continue IV antibiotics until 07/30/18 CT scan of the abdomen and pelvis prior to removing drains Removal of drains per General surgery Time Spent With Patient Time with patient: 15-24 minutes
--- NOTE | 2018-07-26 17:25 | PM.PNPO.1 ---
Subjective Date Patient Seen: 07/26/18 Time Patient Seen: 17:25 Interval history: Having a good day. Exam Vital Signs (past 8 hours): - 07/26/18 13:00 07/26/18 15:50 07/26/18 16:14 Temperature 99.3 F 99.0 F Pulse Rate 65 72 Respiratory Rate 16 18 Blood Pressure 119/70 124/73 Pulse Oximetry 100 100 100 Oxygen Delivery Method Room Air Oxygen Flow Rate 0 Narrative Exam Narrative: No apparent distress. Wound reported is doing well. Objective Labs Result Diagrams: 07/25/18 06:06 07/21/18 07:30 Assessment & Plan Post-op Postoperative Procedures Operation Date: 07/20/18 17:00 Actual Procedures Side Surgeon p Exploratory Laparotomy MARKET INVESTIGATOR Enedina Palafox MD Postoperative status: doing well Postoperative plan narrative: Labs in the a.m. continue antibiotics. CT scan on Monday.
[2018-07-26] MEDS: ACETAMINOPHEN 325 MG TABLET 650 MG PO (20:05)
[2018-07-27] VITALS (8 sets, daily range): BP systolic 115–128; BP diastolic 70–76; PULSE 64–79; RESP 16–18; TEMP 36.6–37.2; O2SAT 97–100
[2018-07-27] MEDS: PIPERACILLIN-TAZO 3.375 GM/50 ML FROZ.PIGGY IV ×4 (00:15→17:10)
[2018-07-27] MEDS: MORPHINE 4 MG/ML INJ IV ×2 (04:49→20:44)
[2018-07-27 06:50] LABS: Add Manual Diff / Slide Review NO; Basophils Absolute Auto 100 /uL (0-100); Basophils Percent Auto 0.8 % (0-2); Eosinophils Absolute Auto 500 /uL (0-450); Eosinophils Percent Auto 4.9 % (2-4); Hematocrit 26.1 % (36-46); Hemoglobin 8.5 g/dL (12.0-16.0); Lymphocytes Absolute Auto 3000 /uL (1100-4500); Lymphocytes Percent Auto 26.9 % (25-40); Mean Corpuscular HGB Conc 32.7 % (30-36); Mean Corpuscular Hemoglobin 28.2 PG (26-34); Mean Corpuscular Volume 86.2 fL (80-100); Monocytes Absolute Auto 1000 /uL (0-900); Monocytes Percent Auto 8.8 % (3-14); Neutrophils Absolute Auto 6500 /uL (1500-7000); Neutrophils Percent Auto 58.6 % (50-75); Platelet Count 403 X10^3/uL (150-400); Red Blood Cell Count 3.02 X10^6/uL (4.0-5.2); White Blood Cell Count 11.1 X10^3/uL (4.5-11.0)
[2018-07-27 07:20] LABS: Procalcitonin < 0.05 ng/mL (<0.5)
[2018-07-27] MEDS: GABAPENTIN 300 MG CAPSULE PO ×2 (09:38→21:29)
[2018-07-27] MEDS: MULTIVIT,CALC,MINS/IRON/FOLIC 1 TABLET 1 TAB PO (09:38)
[2018-07-27] MEDS: ACETAMINOPHEN 325 MG TABLET 650 MG PO (09:39)
[2018-07-27] MEDS: LACTOBACILLUS ACIDOPHILUS TABLET 1 EACH PO ×2 (09:39→17:10)
[2018-07-27] MEDS: POLYETHYLENE GLYCOL 3350 17 GM POWD.PACK PO (09:40)
--- NOTE | 2018-07-27 13:30 | PM.PN.1 ---
Subjective Date Patient Seen: 07/27/18 Time Patient Seen: 13:31 Interval history: Patient is recovering post laparotomy and drainage of a huge pelvic abscess Exam Vital Signs (past 8 hours): - 07/27/18 08:00 07/27/18 08:45 Temperature 98.8 F Pulse Rate 67 Respiratory Rate 16 Blood Pressure 115/70 Pulse Oximetry 100 100 Oxygen Delivery Method Room Air Oxygen Flow Rate 0 Narrative Exam Narrative: Patient is afebrile patient is afebrile today. Abdomen is fairly soft. There is very cloudy purulent-looking drainage still coming from her Frank Redd drains. Objective Labs Result Diagrams: 07/27/18 06:13 07/21/18 07:30 Labs: Laboratory Results - last 24 hr 07/27/18 07/27/18 06:13 06:13 WBC 11.1 H RBC 3.02 L Hgb 8.5 L Hct 26.1 L MCV 86.2 MCH 28.2 MCHC 32.7 RDW 14.0 Plt Count 403 H Neut % (Auto) 58.6 Lymph % (Auto) 26.9 [place] % (Auto) 8.8 Eos % (Auto) 4.9 H Baso % (Auto) 0.8 Neut # (Auto) 6500 Lymph # (Auto) 3000 [place] # (Auto) 1000 H Eos # (Auto) 500 H Baso # (Auto) 100 Procalcitonin < 0.05 Assessment & Plan Assessment & Plan narrative: Patient is tolerating a solid diet having bowel movements. So she has normal GI function. She is afebrile today. White count is down to 11,000. She still has. The drainage coming from her Frank drain. We will leave the drains in place for quite a few more days. Continue IV antibiotic therapy.
--- NOTE | 2018-07-27 14:14 | PM.PNPO.1 ---
Subjective Date Patient Seen: 07/27/18 Time Patient Seen: 14:14 Interval history: Postoperative day #8 drainage of pelvic abscesses. Patient feels she is doing very well. She does occasionally have some sharp abdominal pains that she takes morphine for. She has no nausea. She is ambulatory. She has no fevers. She is having bowel movements. She is urinating well. Exam Vital Signs (past 8 hours): - 07/27/18 08:00 07/27/18 08:45 Temperature 98.8 F Pulse Rate 67 Respiratory Rate 16 Blood Pressure 115/70 Pulse Oximetry 100 100 Oxygen Delivery Method Room Air Oxygen Flow Rate 0 Narrative Exam Narrative: Patient's abdomen is soft with minimal tenderness. Her dressings are dry. She continues to have a minimal amount fluid coming out of her drains. Objective Labs Result Diagrams: 07/27/18 06:13 07/21/18 07:30 Labs: Laboratory Results - last 24 hr 07/27/18 07/27/18 06:13 06:13 WBC 11.1 H RBC 3.02 L Hgb 8.5 L Hct 26.1 L MCV 86.2 MCH 28.2 MCHC 32.7 RDW 14.0 Plt Count 403 H Neut % (Auto) 58.6 Lymph % (Auto) 26.9 [place] % (Auto) 8.8 Eos % (Auto) 4.9 H Baso % (Auto) 0.8 Neut # (Auto) 6500 Lymph # (Auto) 3000 [place] # (Auto) 1000 H Eos # (Auto) 500 H Baso # (Auto) 100 Procalcitonin < 0.05 Assessment & Plan Post-op (1) Intra-abdominal abscess post-procedure: Postoperative Procedures Operation Date: 07/20/18 17:00 Actual Procedures Side Surgeon p Exploratory Laparotomy PILOT CONTROL OPERATOR HELPER Enedina Palafox MD Postoperative day: 8 Postoperative status: doing well Postoperative plan narrative: I will continue to follow with surgery. Plan is for continued IV antibiotics and CT scan on 07/30 to determine if drains can be removed. Time Spent With Patient less than 15 minutes
--- NOTE | 2018-07-27 14:18 | P.PN_ITS ---
Subjective Date Patient Seen: 07/27/18 Time Patient Seen: 14:14 Interval history: Postoperative day #8 drainage of pelvic abscesses. Patient feels she is doing very well. She does occasionally have some sharp abdominal pains that she takes morphine for. She has no nausea. She is ambulatory. She has no fevers. She is having bowel movements. She is urinating well. Exam Vital Signs (past 8 hours): - 07/27/18 08:00 07/27/18 08:45 Temperature 98.8 F Pulse Rate 67 Respiratory Rate 16 Blood Pressure 115/70 Pulse Oximetry 100 100 Oxygen Delivery Method Room Air Oxygen Flow Rate 0 Narrative Exam Narrative: Patient's abdomen is soft with minimal tenderness. Her dressings are dry. She continues to have a minimal amount fluid coming out of her drains. Objective Labs Result Diagrams: 07/27/18 06:13 07/21/18 07:30 Labs: Laboratory Results - last 24 hr 07/27/18 07/27/18 06:13 06:13 WBC 11.1 H RBC 3.02 L Hgb 8.5 L Hct 26.1 L MCV 86.2 MCH 28.2 MCHC 32.7 RDW 14.0 Plt Count 403 H Neut % (Auto) 58.6 Lymph % (Auto) 26.9 [place] % (Auto) 8.8 Eos % (Auto) 4.9 H Baso % (Auto) 0.8 Neut # (Auto) 6500 Lymph # (Auto) 3000 [place] # (Auto) 1000 H Eos # (Auto) 500 H Baso # (Auto) 100 Procalcitonin < 0.05 Assessment & Plan Post-op (1) Intra-abdominal abscess post-procedure: Postoperative Procedures Operation Date: 07/20/18 17:00 Actual Procedures Side Surgeon p Exploratory Laparotomy HAM BONER Enedina Palafox MD Postoperative day: 8 Postoperative status: doing well Postoperative plan narrative: I will continue to follow with surgery. Plan is for continued IV antibiotics and CT scan on 07/30 to determine if drains can be removed. Time Spent With Patient less than 15 minutes
--- NOTE | 2018-07-27 15:28 | CM.SWNOTE ---
DCP. Cont. STEAM BOX TENDER met with pt known to this STEAM BOX TENDER from doing her initial assessment. Pt presents in much better spirits, was smiling and readily engaging in conversation. She expresses feeling very much relieved that she is improving and feeling better, and is hopeful to be discharged by early next week. 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 STEAM BOX TENDER explained how she can either have Dr. Palafox or her PCP help her complete the forms once she is discharged, as they most likely will get to her home around early next week as well. No further needs identified at this time.
[2018-07-28 00:15] VITALS: O2SAT 100
[2018-07-28] MEDS: PIPERACILLIN-TAZO 3.375 GM/50 ML FROZ.PIGGY IV ×4 (00:21→17:41)
[2018-07-28] MEDS: MORPHINE 4 MG/ML INJ IV ×4 (00:21→21:33)
[2018-07-28 00:25] VITALS: BP 124/69; PULSE 68; RESP 17; TEMP 36.8; O2SAT 100
[2018-07-28 07:00] VITALS: O2SAT 99
[2018-07-28 09:07] VITALS: BP 124/65; PULSE 89; RESP 17; TEMP 36.6; O2SAT 100
--- NOTE | 2018-07-28 09:51 | PM.PN.1 ---
Subjective Date Patient Seen: 07/28/18 Time Patient Seen: 09:53 Interval history: Patient is now several days postop but drainage of a large shows pelvic abscess subjectively she feels well with minimal discomfort . She is having normal bowel movements. Tolerating her diet with no nausea vomiting. Exam Vital Signs (past 8 hours): - 07/28/18 09:07 Temperature 97.8 F Pulse Rate 89 Respiratory Rate 17 Blood Pressure 124/65 Pulse Oximetry 100 Oxygen Delivery Method Room Air Oxygen Flow Rate 0 Narrative Exam Narrative: Patient remains afebrile Abdomen is soft Drains are producing about 20 cc a day of mildly cloudy but mostly serosanguineous fluid. Objective Labs Result Diagrams: 07/27/18 06:13 07/21/18 07:30 Assessment & Plan Assessment & Plan narrative: Patient is recovering nicely. She has normal GI function. She has been afebrile for several days. Drains are producing a mild amount of peritoneal fluid. Patient continues to receive intravenous antibiotic therapy. She is scheduled for a CT scan of the abdomen and pelvis in 48 hours. She is stable.
[2018-07-28] MEDS: POLYETHYLENE GLYCOL 3350 17 GM POWD.PACK PO (10:22)
[2018-07-28] MEDS: GABAPENTIN 300 MG CAPSULE PO ×2 (10:23→21:14)
[2018-07-28] MEDS: MULTIVIT,CALC,MINS/IRON/FOLIC 1 TABLET 1 TAB PO (10:23)
[2018-07-28] MEDS: LACTOBACILLUS ACIDOPHILUS TABLET 1 EACH PO ×2 (10:23→17:41)
--- NOTE | 2018-07-28 12:31 | PM.PN.1 ---
Subjective Date Patient Seen: 07/28/18 Time Patient Seen: 12:32 Interval history: Postoperative drainage of pelvic abscess Patient states she is able to have a bowel movement if she continues using MiraLax. She is urinating well and ambulatory. Pain is only occasional and does well with pain medicine. No fevers. Exam Vital Signs (past 8 hours): - 07/28/18 07:00 07/28/18 09:07 Temperature 97.8 F Pulse Rate 89 Respiratory Rate 17 Blood Pressure 124/65 Pulse Oximetry 99 100 Oxygen Delivery Method Room Air Oxygen Flow Rate 0 Narrative Exam Narrative: Patient's abdomen is soft and nontender. Her drains are draining a small amount serosanguineous fluid. Extremities without edema and nontender Objective Labs Result Diagrams: 07/27/18 06:13 07/21/18 07:30 Assessment & Plan Assessment & Plan narrative: Postoperative day #9 drainage of pelvic abscess. Patient is stable. She will be continued on 48 more hours of IV antibiotics with the CT scan planned at that time.
[2018-07-28 15:30] VITALS: BP 118/71; PULSE 81; RESP 16; TEMP 36.8; O2SAT 99
[2018-07-28 18:00] VITALS: O2SAT 98
--- NOTE | 2018-07-28 22:49 | PC.NURSE ---
Evening notes: Adria reports 2 BM's and passing flatus now after having warm prune juice and walking in hallways. Morphine prior to drsg change, wet to dry drsg change then done. Old gauze drsg removed from midline incision with small amt of purulent pussy drainage observed at ridge where wedged into wound. New sterile wet-to-dry drsg in place, one 4x4 soaked with sterile saline was too large and excess cut off, dry 4x4/s placed over top. JESU sites each with 2x2 t-drsg, all gauze drsgs then covered with 2 large op-sites. Pt tolerated drsg change well. Visiting with spouse.
[2018-07-29] VITALS (7 sets, daily range): BP systolic 109–129; BP diastolic 58–73; PULSE 58–84; RESP 13–17; TEMP 36.9–37.2; O2SAT 98–100
[2018-07-29] MEDS: PIPERACILLIN-TAZO 3.375 GM/50 ML FROZ.PIGGY IV ×5 (00:31→23:35)
[2018-07-29] MEDS: MORPHINE 4 MG/ML INJ IV ×4 (06:15→20:19)
[2018-07-29] MEDS: LACTOBACILLUS ACIDOPHILUS TABLET 1 EACH PO ×2 (07:57→16:38)
[2018-07-29] MEDS: MULTIVIT,CALC,MINS/IRON/FOLIC 1 TABLET 1 TAB PO (08:29)
[2018-07-29] MEDS: GABAPENTIN 300 MG CAPSULE PO ×2 (08:29→20:07)
[2018-07-29] MEDS: POLYETHYLENE GLYCOL 3350 17 GM POWD.PACK PO (08:30)
--- NOTE | 2018-07-29 09:48 | PM.PN.1 ---
Subjective Date Patient Seen: 07/29/18 Time Patient Seen: 09:48 Interval history: PATIENT IS RECOVERING NICELY AFTER DRAINAGE OF AN ABDOMINAL PELVIC ABSCESS. SHE HAS NO NAUSEA VOMITING. SHE IS MOVING HER BOWELS DAILY. I INSPECTED THE INCISION TODAY. IT IS HEALING BEAUTIFULLY WITH NO SURROUNDING CELLULITIS. THE WOUND IS GRANULATING. Exam Vital Signs (past 8 hours): - 07/29/18 07:00 Temperature 98.9 F Pulse Rate 58 L Respiratory Rate 16 Blood Pressure 129/69 Pulse Oximetry 99 Oxygen Delivery Method Room Air Oxygen Flow Rate 0 Narrative Exam Narrative: PATIENT IS AFEBRILE ALERT AND ORIENTED HER WOUND IS GRANULATING WITH NO CELLULITIS ANGELIA DRAINS PRODUCING MODEST AMOUNT OF MILDLY PURULENCE MATERIAL Objective Labs Result Diagrams: 07/27/18 06:13 07/21/18 07:30 Assessment & Plan Assessment & Plan narrative: PATIENT IS RECOVERING FROM DRAINAGE OF A HUGE ABDOMINAL ABSCESS. NO CURRENT SIGN OF ABDOMINAL WOUND CELLULITIS DRAINS ARE FUNCTIONING AND PRODUCING ONLY A SMALL AMOUNT OF FLUID WHICH IS A BIT CLOUDY. SHE REMAINS ON HER IV ZOSYN. SHE IS SCHEDULED FOR CT OF THE ABDOMEN TOMORROW TO EVALUATE THE PROGRESS OF HER ABSCESS TREATMENT.
--- NOTE | 2018-07-29 11:52 | PC.NURSE ---
Pt alert and oriented independent in room, dressing change as Dr. Le had examined surgical site and it needed to be redressed. Pt fabrice dressing change, given MS per orders. attentive in room Pt appropriate with needs and concerns. Discussed plan of care for the day.
--- NOTE | 2018-07-29 13:23 | PM.PN.1 ---
Subjective Date Patient Seen: 07/29/18 Time Patient Seen: 13:23 Interval history: Postoperative day #10 drainage pelvic abscess. Patient is doing well. she was concerned because of some greenish discharge on the dressing change but was evaluated by Dr. Escamilla believes that the healing is going well without evidence of infection. Patient is able to have a bowel movement daily well as she takes the MiraLax. She is ambulating without difficulty. No fevers. Pain is minimal. Exam Vital Signs (past 8 hours): - 07/29/18 07:00 Temperature 98.9 F Pulse Rate 58 L Respiratory Rate 16 Blood Pressure 129/69 Pulse Oximetry 99 Oxygen Delivery Method Room Air Oxygen Flow Rate 0 Narrative Exam Narrative: Abdomen is soft, nontender. Minimal fluid from the drains. Extremities without edema and nontender. Objective Labs Result Diagrams: 07/27/18 06:13 07/21/18 07:30 Assessment & Plan Assessment & Plan narrative: Patient is stable post drainage of pelvic abscess. She is looking for to CT scan tomorrow so hopefully she can have her drains removed and be discharged home. Continue her IV antibiotics.
[2018-07-30] MEDS: MORPHINE 4 MG/ML INJ IV ×3 (00:37→10:11)
[2018-07-30] MEDS: PIPERACILLIN-TAZO 3.375 GM/50 ML FROZ.PIGGY IV ×2 (05:46→11:33)
[2018-07-30 07:35] VITALS: BP 130/64; PULSE 57; RESP 14; TEMP 36.9; O2SAT 99
[2018-07-30] MEDS: MULTIVIT,CALC,MINS/IRON/FOLIC 1 TABLET 1 TAB PO (08:46)
[2018-07-30] MEDS: GABAPENTIN 300 MG CAPSULE PO (08:46)
[2018-07-30] MEDS: LACTOBACILLUS ACIDOPHILUS TABLET 1 EACH PO ×2 (08:46→11:35)
[2018-07-30] MEDS: POLYETHYLENE GLYCOL 3350 17 GM POWD.PACK PO (08:46)
[2018-07-30 09:05] VITALS: O2SAT 99
[2018-07-30 09:33] LABS: Add Manual Diff / Slide Review NO; Basophils Absolute Auto 100 /uL (0-100); Basophils Percent Auto 0.9 % (0-2); Eosinophils Absolute Auto 200 /uL (0-450); Hematocrit 27.6 % (36-46); Hemoglobin 9.3 g/dL (12.0-16.0); Lymphocytes Absolute Auto 2800 /uL (1100-4500); Lymphocytes Percent Auto 34.8 % (25-40); Mean Corpuscular HGB Conc 33.6 % (30-36); Mean Corpuscular Volume 86.4 fL (80-100); Monocytes Absolute Auto 600 /uL (0-900); Neutrophils Absolute Auto 4300 /uL (1500-7000); Neutrophils Percent Auto 53.3 % (50-75); Platelet Count 421 X10^3/uL (150-400); Red Blood Cell Count 3.19 X10^6/uL (4.0-5.2); Red Cell Distribution Width 14.4 % (11.6-14.8); White Blood Cell Count 8.1 X10^3/uL (4.5-11.0)
--- NOTE | 2018-07-30 10:06 | DI.CT.S_ITS ---
PROCEDURE: CT ABDOMEN PELVIS W CON INDICATIONS: POD 10 after pelvic abscessed drained, eval for resolution TECHNIQUE: After the administration of intravenous contrast, 5 mm thick sections acquired from the diaphragm to the symphysis. 5 mm coronal and sagittal reformats were acquired. For radiation dose reduction, the following was used: automated exposure control, adjustment of mA and/or kV according to patient size. COMPARISON: [facility], CT, CT ABDOMEN PELVIS W CON, 07/01/2018, 7:50. [facility], CT, CT ANGIO CHEST PE, 07/04/2018, 17:10. [facility], CT, CT ABDOMEN PELVIS W CON, 07/21/2018, 12:42. [facility], CT, CT ABDOMEN PELVIS W CON, 07/20/2018, 8:24. FINDINGS: Image quality: Excellent. ABDOMEN: Lung bases: Lung bases are clear. Heart size is normal. Solid organs: Liver is normal in size and enhancement. Gallbladder appears normal. Biliary system is non dilated. Pancreas enhances normally. Spleen is normal in size and enhancement. No adrenal nodules. Kidneys demonstrate normal size and enhancement, without hydronephrosis. Peritoneum and bowel: Bowel loops demonstrate normal wall thickness and caliber. No free fluid or air. Nodes and vessels: No retroperitoneal or mesenteric adenopathy by size criteria. Aorta and inferior vena cava are normal in size. Miscellaneous: No ventral hernias. PELVIS: Genitourinary: Bladder wall thickness is normal. Miscellaneous: No inguinal hernias or adenopathy. 2 surgical drains, within the peritoneal space, across the midline. No abnormal peritoneal rim-enhancing fluid collection is seen that would indicate presence of residual abscess formation. Note is made of a small to moderate degree of vaginal or free fluid cephalad, abutting the inferior margin of the cervix. This is similar to the appearance from 07/20/18 (preoperative). A thin radiodense line again noted right lower quadrant at the medial aspect of the cecum area, likely sequela from prior appendectomy. Bones: No suspicious bony lesions. No vertebral body compression fractures. IMPRESSION: Large pelvic abscess has been successfully evacuated, 2 surgical drains remain in the peritoneal space of the lower pelvis. A small amount of free fluid within the upper vagina is incidentally noted but was also present preoperatively. A small linear band of increased radiodensity that was previously present and commented upon on several prior studies most likely represents sequela of prior appendectomy. Dictated by: Munir Padilla M.D. on 07/30/2018 at 10:21 Approved by: Munir Padilla M.D. on 07/30/2018 at 10:27
[2018-07-30] MEDS: FLUCONAZOLE 150 MG TABLET PO (11:34)
[2018-07-30] MEDS: CLOTRIMAZOLE 1% VAG CRM 45 GM 1 APPLIC VAG (11:38)
[2018-07-30] MEDS: ACETAMINOPHEN 325 MG TABLET 650 MG PO (12:48)
--- NOTE | 2018-07-30 13:02 | P.PN_ITS ---
Subjective Date Patient Seen: 07/30/18 Time Patient Seen: 08:00 Interval history: Feeling great Tolerating a general diet wants to go home No pain Exam Vital Signs (past 8 hours): - 07/30/18 07:35 07/30/18 09:05 Temperature 98.5 F Pulse Rate 57 L Respiratory Rate 14 Blood Pressure 130/64 Pulse Oximetry 99 99 Oxygen Delivery Method Room Air Oxygen Flow Rate 0 Narrative Exam Narrative: NAd looks well breathing comfortably on RA RRR Abd soft nontender non distended, midline wound now closing well by secondary intention. peripery warm Superficial drain clear serous minimal output L sided deep drain a bit more viscus also minimal output Objective Labs Result Diagrams: 07/30/18 08:20 07/21/18 07:30 Labs: Laboratory Results - last 24 hr 07/30/18 08:20 WBC 8.1 RBC 3.19 L Hgb 9.3 L Hct 27.6 L MCV 86.4 MCH 29.0 MCHC 33.6 RDW 14.4 Plt Count 421 H Neut % (Auto) 53.3 Lymph % (Auto) 34.8 [place] % (Auto) 8.0 Eos % (Auto) 3.0 Baso % (Auto) 0.9 Neut # (Auto) 4300 Lymph # (Auto) 2800 [place] # (Auto) 600 Eos # (Auto) 200 Baso # (Auto) 100 Assessment & Plan Assessment & Plan narrative: 33 yo woman POD10 after open drainage of pelvic abscess following hysterectomy + appy. Now well with WBC 8. cultures with pansensitive e coli. CT shows resolution of superfical abscess and small quite minimal fluid collection around deep drain site. Plan: OK to D/C home today Stop IV ABX - i wrote for 4 additional days of Amp/sulbactam - organism is sensitive Superfical drain removed Deep L drain - out at follow up in 1 week in office.
--- NOTE | 2018-07-30 13:31 | PC.NURSE ---
Right superficial drain removed and bandage placed over site. Left deep drain to remain in place until follow up appointment. Pt and Spouse instructed on dressing changes and s/s to watch for as well as drain care.
--- NOTE | 2018-07-30 14:00 | PC.NURSE ---
Pt is dressed and ready for discharge home with Spouse. Dressing changes and drain management have been taught and both feel comfortable performing the procedures. Went over d/c instructions with Pt and Spouse. Pt to follow up with Dr. Palafox and Dr. Baker next week. Discussed discharge antibiotic and dosing times. Reviewed stroke and education and reminded Pt to drink fluids to help prevent constipation while on narcotics as well as no driving. NO lifting greater than 15 pounds. Pt and spouse deny further questions and Pt was taken out via w/c by [employer] to pov with Spouse and all belongings.
--- NOTE | 2018-08-06 06:41 | P.DS_ITS ---
History of Present Illness Date Patient Seen: 07/30/18 Time Patient Seen: 12:30 Chief complaint: lower abd pain, has huge lump in stomach Narrative: Patient is a 33-year-old who presented to the emergency department with severe abdominal pain and swelling on the right side. She underwent an abdominal supracervical hysterectomy approximately 1 month ago. Three weeks ago had a diagnostic laparoscopy with a back UA vu of hematoma. She reports no fever at home. She has had occasional chills. She has had bowel movements and passing flatus. Discharge Providers Date of admission: 07/20/18 10:38 Discharge Date: 07/30/18 Primary care physician: Torie Bustillo DO Consults: 07/20/18 11:16 Consult to Music Video Producer Routine Comment: having thoughts of harming herself, no plan 07/20/18 21:26 Consult to Discharge Planning Routine Comment: Discharge provider: Enedina Palafox MD Summary Discharge Diagnosis: Multiple intra-abdominal abscesses Hospital Course: The patient presented on 07/20/2018 with severe abdominal pain and a mass protruding from the abdomen. By CT scan she was found to have multiple intra-abdominal and intrapelvic abscesses. She was taken to the operating room on that same day and had a laparotomy with evacuation of multiple abscesses and placement of 2 drains. One of the drains was placed deep the other 1 was placed superficial. She was started on IV antibiotics and continued on them through the course of her hospital stay. By hospital day 10., her white blood count had returned to normal, she was afebrile, and there was minimal drainage from 1 of the drains and it was removed prior to discharge. She was sent home on oral antibiotics. She was to follow up with General surgery in 1 week. She had normal bowel function at discharge. Status at Discharge Cognitive/behavioral status at discharge: oriented Functional status at discharge: independent ambulation Overall status at discharge: patient is progressing back to baseline Time Spent with Patient Less than 30 minutes Exam Vital Signs (past 8 hours): Oxygen Delivery Method Room Air Oxygen Flow Rate 0 Narrative Exam Narrative: Generally: A well-developed, well-nourished female, no acute distress Lungs: Clear to auscultation bilaterally Cardiovascular: Regular rate and rhythm Abdomen: Soft and flat. Good bowel sounds in all 4 quadrants. The previous surgical incisions are well healed. Incision: Clean dry and intact with bandage. Drain sites: Minimal drainage. Incisions clean dry and intact. Extremities: Negative Homans Objective Labs Result Diagrams: 07/30/18 08:20 07/21/18 07:30 Discharge Plan Discharge Plan Patient Disposition: Home Discharge comment: D/c After drain and wound care teaching Discharge Med Rec/Prescriptions Prescriptions: New amoxicillin-pot clavulanate [Augmentin] 500-125 mg tablet 1 tab PO TID Qty: 12 RF: 0 Continued multivitamin Capsule 1 tab PO DAILY RF: 0 ibuprofen 600 mg tablet 600 mg PO TID PRN (Reason: pain) Qty: 30 RF: 0 ferrous gluconate 324 mg (37.5 mg iron) tablet 324 mg PO DAILY Qty: 30 RF: 1 docusate sodium [Colace] 100 mg capsule 100 mg PO DAILY Qty: 20 RF: 0 potassium chloride 1 dose PO DAILY RF: 0 No Action oxycodone-acetaminophen 5-325 mg tablet 1 tab PO Q4-6H PRN (Reason: pain) Qty: 20 RF: 0 docusate sodium [Colace] 100 mg capsule 100 mg PO BID PRN (Reason: constipation) Qty: 20 RF: 0 Follow up/Referrals: Enedina Palafox MD [Physician] - (appointment is:08/08 11:[address] palafox (or check in as soon as you are done with dr sandoval-christie dimas rn for dr palafox)) Willie Baker MD [Physician] - (follow up week of 08/06 *appointment is: 08/08 check in at 1030 for a 10:45 w/dr sandoval ) Torie Bustillo DO [Primary Care Provider] - Provider Discharge Instructions Diet: Diet as Tolerated Activity: as tolerated - no lifting over 15lbs for 4 weeks. All other activity OK if comfortable Skin/Wound/Dressing Care Report to your healthcare provider any signs of infection, such as:: chills, fever and increased pain Dressing: Change dressing twice a day including after you shower Other wound treatment: drain your drain output at least one time a day. Record how much comes out each day - bring this log to your doctors appts. Plan is to remove your drain at your next doctors appt next week Visit Report/Discharge Packet Instructions: How to Care for a Surgical Wound, DI for Surgical Site Infection, Amoxicillin/Clavulanate Potassium (By mouth) Discharge Data Primary Care Provider: Torie Bustillo Attending Provider: Enedina Palafox Admit Date/Time: 07/20/18 10:38 Discharges patient from system. Discharge Date/Time: 07/30/18 14:06
== END 2018-07-30 14:06 | disposition home or self-care (01) | DRG 856 ==
LOC: ED 09:21 → AC 10:39
PROVIDERS: Specialist; Surgery; Admitting Provider Obstetrics & Gynecology; Emergency Provider Emergency Medicine; PCP Family Medicine; Visit Provider Obstetrics & Gynecology
PROC: 0WJJ0ZZ Inspection of Pelvic Cavity, Open Approach (ICD-10-PCS; CPT 49000; principal; 2018-07-20 17:00)
DX: T81.43XA Infection following a procedure, organ and space surgical site, initial encounter (principal); K65.1 Peritoneal abscess; Z87.891 Personal history of nicotine dependence
CPT/HCPCS: 36415; 36591; 36592; 49020; 74177; 80053; 81001; 83605; 83690; 84145; 85025; 87040; 87070; 87075; 87077; 87186; 87205; 94762; 96365; 96367; 96375; 96376; 99233; 99284; 99285; J1100; J1170; J1642; J1650; J1885; J2270; J2405; J2543; J2704; J3010; J3370; Q9967

== ENCOUNTER 2018-08-05 19:24 | Emergency (ER) | payer OTHER, SELFPAY ==
[2018-07-30 13:29] VITALS: BMI 20.3
[2018-08-05 19:29] VITALS: BP 96/54; PULSE 95; RESP 16; TEMP 37.1; O2SAT 96
--- NOTE | 2018-08-05 19:51 | ED_ITS ---
HPI - Abdominal Pain General Chief Complaint: Abdominal Pain Stated Complaint: stomach pains radiating around to back,recent surg Time Seen by Provider: 08/05/18 19:36 Source: patient Mode of arrival: ambulatory Limitations: no limitations History of Present Illness HPI narrative: Patient is a 33-year-old female here for evaluation of right- sided abdominal pain radiating around her back. Patient recently had a la parotomy for an intra-abdominal abscess. She was here in the hospital for 10 days afterwards. She states that today she woke up this morning and started having new right lower quadrant abdominal pain. She states that is different from her postoperative pain. Denies any urinary symptoms. No vaginal bleeding. No fevers. No vomiting. No change in bowel habits. She states the pain worsened throughout the day. Given her medical history she felt she needed to come in to be evaluated. Related Data Home Medications Medication Instructions Recorded Confirmed multivitamin 1 tab PO DAILY 12/29/17 07/20/18 potassium chloride 1 dose PO DAILY 07/20/18 07/20/18 Previous Rx's Medication Instructions Recorded ibuprofen 600 mg PO TID PRN #30 tab 06/27/18 docusate sodium [Colace] 100 mg PO DAILY #20 cap 07/07/18 ferrous gluconate 324 mg PO DAILY #30 tab 07/07/18 amoxicillin-pot clavulanate 1 tab PO TID #12 tab 07/30/18 [Augmentin] oxycodone-acetaminophen 5 mg-325 1 tab PO Q4-6H PRN #20 tab 07/30/18 mg tablet docusate sodium [Colace] 100 mg PO BID PRN #20 cap 08/05/18 Allergies Allergy/AdvReac Type Severity Reaction Status Date / Time No Known Drug Allergies Allergy Verified 07/20/18 06:57 Review of Systems Constitutional Denies fever(s) and Denies headache(s) ENT Ears, Nose, Mouth, and Throat: Denies headache(s) Cardiovascular Denies chest pain and Denies dyspnea Respiratory Denies dyspnea Gastrointestinal Gastrointestinal: Reports abdominal pain, Denies change in stool character, Denies diarrhea, Denies nausea and Denies vomiting Genitourinary Denies dysuria and Denies vaginal discharge Musculoskeletal Denies myalgias and Denies arthralgias Integumentary/Breasts Denies rash Neurologic Denies headache(s) Hematologic/Lymphatic Denies easy bleeding and Denies easy bruising PFSH Medical History Irregular menstrual cycle (Chronic ~2006) Ovarian cyst (Chronic ~2004) Painful menstrual periods (Chronic ~2009) Family History Father Stroke Mother Hypertension Sister Hypertension Grandfather Cancer Hypertension Grandmother Hyperlipidemia Hypertension Social History household members: spouse Smoking Status: Former smoker Exam Initial Vital Signs Initial Vital Signs: Vital Signs Temperature 98.7 F 08/05/18 19:29 Pulse Rate 95 H 08/05/18 19:29 Respiratory Rate 16 08/05/18 19:29 Blood Pressure 96/54 L 08/05/18 19:29 Pulse Oximetry 96 08/05/18 19:29 Const General: cooperative, healthy appearing, comfortable, well developed, well groomed and No acute distress Orientation: alert and awake HENMT Head: normal to inspection and normocephalic Resp Effort & Inspection: normal respiratory effort Auscultation: clear to auscultation bilaterally Cardio Rate: regular rate Rhythm: regular rhythm GI Inspection: non-distended Palpation: soft, No firm, No guarding and tender (Right-sided abdomen) Back/Spine/Pelvis Back: CVA tenderness right Skin Other: Wound healing midline lower abdominal surgical scar Neuro General: alert and awake Cognition: normal cognition Extrem General: normal to inspection and capillary refill normal Course Orders Ordered: ED Orders 08/05/18 20:34 Basic Metabolic Panel Stat Complete Blood Count AUTO DIFF Stat Lactate (Lactic Acid) Stat Procalcitonin Stat Discontinued Medications Oxycodone/Acetaminophen (Percocet 5/325) 1 tab PO NOW ONE Stop: 08/05/18 21:29 Last Admin: 08/05/18 21:35 Dose: 1 tab Vital Signs - 8 hr 08/05/18 19:29 08/05/18 21:37 Temperature 98.7 F 98.9 F Pulse Rate 95 H 73 Respiratory Rate 16 16 Blood Pressure 96/54 L 125/76 Pulse Oximetry 96 100 MDM - Abdominal Pain Lab Data Attestation: I reviewed the patient's lab results. Result diagrams: 08/05/18 20:34 08/05/18 20:34 Lab Results 08/05/18 08/05/18 08/05/18 Range/Units 20:34 20:34 20:34 WBC 8.7 (4.5-11.0) X10^3/uL RBC 3.02 L (4.0-5.2) X10^6/uL Hgb 8.9 L (12.0-16.0) g/dL Hct 26.4 L (36-46) % MCV 87.5 (80-100) fL MCH 29.3 (26-34) PG MCHC 33.5 (30-36) % RDW 16.9 H (11.6-14.8) % Plt Count 262 (150-400) X10^3/uL Neut % (Auto) 49.3 L (50-75) % Lymph % (Auto) 31.7 (25-40) % Elbert % (Auto) 9.1 (3-14) % Eos % (Auto) 8.7 H (2-4) % Baso % (Auto) 1.2 (0-2) % Neut # (Auto) 4300 (3751-3400) /uL Lymph # (Auto) 2700 (7363-8539) /uL Elbert # (Auto) 800 (0-900) /uL Eos # (Auto) 800 H (0-450) /uL Baso # (Auto) 100 (0-100) /uL Sodium 138 (137-145) mmol/L Potassium 4.0 (3.4-5.1) mmol/L Chloride 104 (98-107) mmol/L Carbon Dioxide 27 (22-32) mmol/L BUN 10 (7-17) mg/dL Creatinine 0.70 (0.52-1.04) mg/dL Estimated GFR > 60.0 (>60) mL/min BUN/Creatinine Ratio 14.3 (6-22) Glucose 129 H (70-100) mg/dL Lactate (0.7-2.1) mmol/L Calcium 9.1 (8.4-10.2) mg/dL Procalcitonin < 0.05 (<0.5) ng/mL 08/05/18 Range/Units 20:34 WBC (4.5-11.0) X10^3/uL RBC (4.0-5.2) X10^6/uL Hgb (12.0-16.0) g/dL Hct (36-46) % MCV (80-100) fL MCH (26-34) PG MCHC (30-36) % RDW (11.6-14.8) % Plt Count (150-400) X10^3/uL Neut % (Auto) (50-75) % Lymph % (Auto) (25-40) % Elbert % (Auto) (3-14) % Eos % (Auto) (2-4) % Baso % (Auto) (0-2) % Neut # (Auto) (0582-3910) /uL Lymph # (Auto) (3040-1797) /uL Elbert # (Auto) (0-900) /uL Eos # (Auto) (0-450) /uL Baso # (Auto) (0-100) /uL Sodium (137-145) mmol/L Potassium (3.4-5.1) mmol/L Chloride (98-107) mmol/L Carbon Dioxide (22-32) mmol/L BUN (7-17) mg/dL Creatinine (0.52-1.04) mg/dL Estimated GFR (>60) mL/min BUN/Creatinine Ratio (6-22) Glucose (70-100) mg/dL Lactate 1.0 (0.7-2.1) mmol/L Calcium (8.4-10.2) mg/dL Procalcitonin (<0.5) ng/mL MDM Narrative Medical decision making narrative: Patient does not have physical exam findings consistent with an obstruction. She is not vomiting. She has had no change in bowel habits. She is afebrile. Does not have an ovoid white blood cell count not elevated lactate and a normal procalcitonin. She has a relatively benign abdominal exam. I have low suspicion for abscess and/or obstruction. Will hold on a CT scan for now. Patient does have pain medication at home. I discussed the case with Dr. Powell with General surgery who expressed agreement with discharging patient home ever follow-up with General Surgery the beginning of the week. Patient given return precautions follow-up instructions. She expressed understanding and agreement plan. Discharge Plan Departure Patient Disposition: Home Clinical Impression: Abdominal pain Qualifiers: Abdominal location: right lower quadrant Qualified Code(s): R10.31 - Right lower quadrant pain Discharge Date/Time: 08/05/18 21:39 Interventions: ED Discharge Assessment Last Done: 08/05/18 21:37 Instructions: DI for Abdominal Pain-Adult Activity Restrictions/Additional Instructions: Keep your appointment that you have with General surgery on Monday. If your symptoms worsen or you develops new symptoms such as fevers, worsening pain, inability to have bowel movements or any other concerning symptoms please return to the emergency department. Take all of your medications as directed. Prescriptions: New docusate sodium [Colace] 100 mg capsule 100 mg PO BID PRN (Reason: constipation) Qty: 20 RF: 0 No Action oxycodone-acetaminophen 5-325 mg tablet 1 tab PO Q4-6H PRN (Reason: pain) Qty: 20 RF: 0 multivitamin Capsule 1 tab PO DAILY RF: 0 ibuprofen 600 mg tablet 600 mg PO TID PRN (Reason: pain) Qty: 30 RF: 0 ferrous gluconate 324 mg (37.5 mg iron) tablet 324 mg PO DAILY Qty: 30 RF: 1 docusate sodium [Colace] 100 mg capsule 100 mg PO DAILY Qty: 20 RF: 0 potassium chloride 1 dose PO DAILY RF: 0 amoxicillin-pot clavulanate [Augmentin] 500-125 mg tablet 1 tab PO TID Qty: 12 RF: 0 Referrals: Torie Bustillo DO [Primary Care Provider] -
[2018-08-05 20:43] LABS: Add Manual Diff / Slide Review NO; Basophils Absolute Auto 100 /uL (0-100); Basophils Percent Auto 1.2 % (0-2); Eosinophils Absolute Auto 800 /uL (0-450); Eosinophils Percent Auto 8.7 % (2-4); Hematocrit 26.4 % (36-46); Hemoglobin 8.9 g/dL (12.0-16.0); Lymphocytes Absolute Auto 2700 /uL (1100-4500); Lymphocytes Percent Auto 31.7 % (25-40); Mean Corpuscular HGB Conc 33.5 % (30-36); Mean Corpuscular Hemoglobin 29.3 PG (26-34); Mean Corpuscular Volume 87.5 fL (80-100); Monocytes Absolute Auto 800 /uL (0-900); Monocytes Percent Auto 9.1 % (3-14); Neutrophils Absolute Auto 4300 /uL (1500-7000); Neutrophils Percent Auto 49.3 % (50-75); Platelet Count 262 X10^3/uL (150-400); Red Blood Cell Count 3.02 X10^6/uL (4.0-5.2); Red Cell Distribution Width 16.9 % (11.6-14.8); White Blood Cell Count 8.7 X10^3/uL (4.5-11.0)
[2018-08-05 20:57] LABS: BUN Creatinine Ratio 14.3 (6-22); Blood Urea Nitrogen 10 mg/dL (7-17); Calcium 9.1 mg/dL (8.4-10.2); Carbon Dioxide 27 mmol/L (22-32); Chloride 104 mmol/L (98-107); Estimated Glomerular Filt Rate > 60.0 mL/min (>60); Glucose 129 mg/dL (70-100); HEMOLYSIS < 15 (0-50); Sodium 138 mmol/L (137-145)
[2018-08-05 21:16] LABS: Procalcitonin < 0.05 ng/mL (<0.5)
[2018-08-05] MEDS: OXYCODONE/ACETAMINOPHEN 5/325 TABLET 1 TAB PO (21:35)
[2018-08-05 21:37] VITALS: BP 125/76; PULSE 73; RESP 16; TEMP 37.2; O2SAT 100
== END 2018-08-05 21:39 | disposition home or self-care (01) ==
PROVIDERS: Emergency Provider Emergency Medicine; PCP Family Medicine
DX: R10.31 Right lower quadrant pain (principal)
CPT/HCPCS: 36415; 80048; 83605; 84145; 85025; 99282; 99283

== ENCOUNTER → 2018-08-28 17:30 | Outpatient (CLI) | payer OTHER, SELFPAY ==
[2018-07-30 13:29] VITALS: BMI 20.3
[2018-08-28 17:45] LABS: Add Manual Diff / Slide Review NO; Basophils Absolute Auto 100 /uL (0-100); Basophils Percent Auto 1.2 % (0-2); Eosinophils Absolute Auto 400 /uL (0-450); Eosinophils Percent Auto 4.6 % (2-4); Hematocrit 34.8 % (36-46); Hemoglobin 11.6 g/dL (12.0-16.0); Lymphocytes Absolute Auto 3200 /uL (1100-4500); Lymphocytes Percent Auto 39.2 % (25-40); Mean Corpuscular HGB Conc 33.4 % (30-36); Mean Corpuscular Volume 89.6 fL (80-100); Monocytes Absolute Auto 600 /uL (0-900); Monocytes Percent Auto 7.8 % (3-14); Neutrophils Absolute Auto 3800 /uL (1500-7000); Neutrophils Percent Auto 47.2 % (50-75); Platelet Count 272 X10^3/uL (150-400); Red Blood Cell Count 3.88 X10^6/uL (4.0-5.2); White Blood Cell Count 8.1 X10^3/uL (4.5-11.0)
[2018-08-28 18:11] LABS: HEMOLYSIS < 15 (0-50); Iron 69 ug/dL (37-170)
[2018-08-28 18:21] LABS: Percent Iron Saturation 26 % (15-50); Total Iron Binding Capacity 263 ug/dL (265-497); Transferrin 213 mg/dL (206-381)
[2018-08-28 18:24] LABS: Alanine Aminotransferase 13 IU/L (9-52); Albumin 4.6 g/dL (3.5-5.0); Albumin Globulin Ratio 1.3 (1.0-2.8); Alkaline Phosphatase 82 U/L (38-126); Aspartate Aminotransferase 20 IU/L (14-36); Bilirubin Total 0.4 mg/dL (0.2-1.3); Blood Urea Nitrogen 15 mg/dL (7-17); Calcium 10.2 mg/dL (8.4-10.2); Carbon Dioxide 27 mmol/L (22-32); Chloride 102 mmol/L (98-107); Estimated Glomerular Filt Rate > 60.0 mL/min (>60); Globulin 3.5 g/dL (1.7-4.1); Glucose 80 mg/dL (70-100); HEMOLYSIS < 15 (0-50); Sodium 137 mmol/L (137-145); Total Protein 8.1 g/dL (6.3-8.2)
== END ==
PROVIDERS: PCP Family Medicine; Visit Provider Family Medicine
DX: D64.9 Anemia, unspecified (principal)
CPT/HCPCS: 36415; 80053; 83540; 83550; 85025

== ENCOUNTER → 2018-10-22 06:59 | Outpatient (CLI) | payer OTHER, SELFPAY ==
[2018-07-30 13:29] VITALS: BMI 20.3
--- NOTE | 2018-10-22 07:01 | DI.US.S_ITS ---
PROCEDURE: US ABDOMEN LIMITED INDICATIONS: PAINFUL LUMP IN RECENT SURGICAL SCAR TECHNIQUE: Real-time focused scanning was performed of the abdomen, with image documentation. COMPARISON: [facility], CT, CT ABDOMEN PELVIS W CON, 07/30/2018, 9:43. [facility], CT, CT ABDOMEN PELVIS W CON, 07/21/2018, 12:42. FINDINGS: No sonographic abnormality visualized involving the midline surgical scar. IMPRESSION: No sonographic abnormality. Dictated by: Filiberto MONREAL Interpreted: Munir Padilla MD on 10/22/2018 at 8:47 Approved by: Munir Padilla M.D. on 10/23/2018 at 8:17
== END ==
PROVIDERS: PCP Family Medicine; Visit Provider Registered Nurse
DX: R10.30 Lower abdominal pain, unspecified (principal)
CPT/HCPCS: 76705

== ENCOUNTER → 2018-12-19 12:35 | Outpatient (CLI) | payer OTHER, SELFPAY ==
[2018-07-30 13:29] VITALS: BMI 20.3
[2018-12-19 13:13] LABS: Appearance Urine UA CLOUDY; Bilirubin Urine UA NEGATIVE (NEGATIVE); Color Urine UA YELLOW; Glucose Urine UA NEGATIVE (Negative); Ketones Urine UA NEGATIVE (NEGATIVE); Leukocyte Esterase Urine UA TRACE (NEGATIVE); Nitrite Urine UA NEGATIVE (Negative); Occult Blood Urine UA 2+ (Negative); Protein Urine UA TRACE (Negative); Specific Gravity Urine UA 1.015 (1.000-1.035); Urobilinogen Urine UA 0.2 E.U./dL (0.2)
[2018-12-19 13:26] LABS: Amorphous Sediment Urine 1+; Bacteria Urine Many (>30); Culture Indicated Urine Specimen Cultured; RBC Urine 1-5/HPF (0-5/HPF); Squamous Epithelial Cell Urine 0-1 /HPF (0-5/HPF); WBC Urine >100/HPF (0-5/HPF)
== END ==
PROVIDERS: PCP Family Medicine; Visit Provider Family Medicine
DX: R30.0 Dysuria (principal); R35.0 Frequency of micturition
CPT/HCPCS: 81001; 87077; 87086; 87147; 87186

== ENCOUNTER → 2019-03-07 13:20 | Outpatient (CLI) | payer OTHER, SELFPAY ==
[2018-07-30 13:29] VITALS: BMI 20.3
[2019-03-07 13:42] LABS: Add Manual Diff / Slide Review NO; Basophils Absolute Auto 100 /uL (0-100); Basophils Percent Auto 1.2 % (0-2); Eosinophils Absolute Auto 200 /uL (0-450); Eosinophils Percent Auto 2.5 % (2-4); Hemoglobin 12.6 g/dL (12.0-16.0); Lymphocytes Absolute Auto 3000 /uL (1100-4500); Lymphocytes Percent Auto 41.3 % (25-40); Mean Corpuscular HGB Conc 34.1 % (30-36); Mean Corpuscular Hemoglobin 30.7 PG (26-34); Mean Corpuscular Volume 90.2 fL (80-100); Monocytes Absolute Auto 600 /uL (0-900); Monocytes Percent Auto 8.4 % (3-14); Neutrophils Absolute Auto 3400 /uL (1500-7000); Neutrophils Percent Auto 46.6 % (50-75); Platelet Count 225 X10^3/uL (150-400); Red Cell Distribution Width 12.4 % (11.6-14.8); White Blood Cell Count 7.3 X10^3/uL (4.5-11.0)
[2019-03-07 14:39] LABS: Alanine Aminotransferase 24 IU/L (<35); Albumin 4.5 g/dL (3.5-5.0); Albumin Globulin Ratio 1.5 (1.0-2.8); Alkaline Phosphatase 59 U/L (38-126); Aspartate Aminotransferase 27 IU/L (14-36); Bilirubin Total 0.3 mg/dL (0.2-1.3); Blood Urea Nitrogen 18 mg/dL (7-17); Calcium 10.2 mg/dL (8.4-10.2); Carbon Dioxide 27 mmol/L (22-32); Chloride 102 mmol/L (98-107); Estimated Glomerular Filt Rate > 60.0 mL/min (>60); Glucose 87 mg/dL (70-100); HEMOLYSIS 20 (0-50); Potassium 3.8 mmol/L (3.4-5.1); Sodium 137 mmol/L (137-145); Total Protein 7.5 g/dL (6.3-8.2)
[2019-03-07 15:09] LABS: TSH w/ Reflex to FT4 0.77 uIU/mL (0.47-4.68)
== END ==
PROVIDERS: PCP Family Medicine; Visit Provider Nurse Practitioner
DX: R53.83 Other fatigue (principal)
CPT/HCPCS: 36415; 80053; 84443; 85025

== ENCOUNTER 2019-10-16 11:11 | Emergency (ER) | payer OTHER, SELFPAY ==
[2018-07-30 13:29] VITALS: BMI 20.3
--- NOTE | 2019-10-16 | DI.US.S_ITS ---
PROCEDURE: US EXTREMITY NONVASC LOWER LT INDICATIONS: ACUTE LEFT KNEE PAIN TECHNIQUE: Real-time scanning was performed of the area of clinical concern, with image documentation. No color Doppler imaging was performed. COMPARISON: [facility], CR, XR KNEE LT 3V, 10/16/2019, 11:25. FINDINGS: Along the anterior/medial knee, there is a focal low echogenicity fluid collection seen that measures 5.3 x 0.8 x 2.9 cm. No Raman's cyst is seen. IMPRESSION: There is a nonspecific fluid collection seen anteriorly. Differential diagnosis includes a joint effusion and seroma. Differential diagnosis also includes abscess, yet this is considered to be less likely. Dictated by: Florentino Gray M.D. on 10/16/2019 at 12:18 Approved by: Florentino Gray M.D. on 10/16/2019 at 12:24
[2019-10-16 11:15] VITALS: BP 127/62; PULSE 84; RESP 16; TEMP 36.7; O2SAT 100; BMI 22.1
--- NOTE | 2019-10-16 11:32 | DI.RAD.S_ITS ---
PROCEDURE: XR KNEE LT 3V INDICATIONS: knee pain and swelling TECHNIQUE: 3 views of the knee were acquired. COMPARISON: None. FINDINGS: Bones: No fractures or dislocations. No suspicious bony lesions. Soft tissues: No joint effusion. No suspicious soft tissue calcifications. IMPRESSION: No fracture. No acute osseous lesion. If symptoms and/or clinical suspicion for pathology persists, further assessment with repeat radiographs (7-10 days) or advanced imaging (e.g. CT, MRI or bone scan) may be helpful. Dictated by: Tori Arriaga MD, PhD on 10/16/2019 at 11:50 Approved by: Tori Arriaga MD, PhD on 10/16/2019 at 11:50
--- NOTE | 2019-10-16 11:52 | ED_ITS ---
HPI - Extremity Problem <Emma Bhagat PA-C - Last Filed: 10/16/19 21:38> General Chief complaint: Extremity Problem,Nontraumatic Stated complaint: left knee swollen no injury x1 day Time Seen by Provider: 10/16/19 11:30 Source: patient Mode of arrival: Ambulatory Limitations: no limitations History of Present Illness HPI Narrative: This is a well-appearing 34-year-old woman who presents with left knee tenderness and slight swelling that began yesterday evening after work. 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 However this morning the pain was worse and she went to work but the pain continued to worsen. She feels like she has some swelling in the area of her knee cap and she presented to the emergency department for evaluation. She denies any recent illness, fever, chills, nausea, vomiting, heat in the area of her knee, fatigue or any other symptoms. She is a nonsmoker and she is not on control. She states she has been in her normal state of health and this is an isolated complaint. MD Complaint: extremity pain and extremity swelling Onset (ago): hour(s) (18) Pain Consistency: constant Location: left and knee Severity scale (1-10): 6 (When she bends it a lot for when she squats) Quality: aching, dull and constant Radiation: none Relieving factors: immobilization Exacerbating factors: range of motion and palpation Associated symptoms: denies other symptoms Related Data Home Medications Medication Instructions Recorded Confirmed multivitamin 1 tab PO DAILY 12/29/17 03/07/19 Allergies Allergy/AdvReac Type Severity Reaction Status Date / Time No Known Drug Allergies Allergy Verified 03/07/19 12:09 Review of Systems <Emma Bhagat PA-C - Last Filed: 10/16/19 21:38> Review of Systems Narrative: GENERAL: Denies chills, fatigue, malaise, fever, sweats. HEENT: Denies sinus pain, ear pain, sore throat, difficulty swallowing, dizziness. RESPIRATORY: Denies dyspnea, cough, wheezing, hemoptysis, sputum. CARDIOVASCULAR: Denies chest pain, palpitations, orthopnea, edema, GASTROINTESTINAL: Denies nausea, vomiting, abdominal pain, diarrhea, constipation, melena. : Denies dysuria, frequency, incontinence, hematuria, urinary retention. MUSCULOSKELETAL: Positive for left knee pain, denies weakness, joint pain, or bony pain SKIN: Denies rash, skin lesions, or other NEUROLOGIC: Denies weakness, headache, numbness, change in speech, confusion, seizures, incoordination. PSYCHIATRIC: No concerning psychosocial issues. 12 point review of systems is negative except for those stated above Patient History <Emma Bhagat PA-C - Last Filed: 10/16/19 21:38> Medical History (Updated 10/16/19 @ 12:54 by Emma Bhagat PA-C) Irregular menstrual cycle (Chronic ~2006) Ovarian cyst (Chronic ~2004) Painful menstrual periods (Chronic ~2009) Surgical History Anesthesia (Resolved) History of delivery (Resolved) History of laparoscopy (Resolved) History of left oophorectomy (Resolved ~2012) History of tubal ligation (Resolved) S/P abdominal hysterectomy (Resolved 06/25/18) S/P laparoscopy (Resolved 07/01/18) Family History Father Stroke Mother Hypertension Sister Hypertension Grandfather Cancer Hypertension Grandmother Hyperlipidemia Hypertension Social History household members: spouse Smoking Status: Former smoker alcohol intake: current substance use type: does not use Smoking Status: Former smoker alcohol intake frequency: 0-2 drinks per day Substance Use Type: does not use Exam <Emma Bhagat PA-C - Last Filed: 10/16/19 21:38> Narrative Exam Narrative: GENERAL: 34 year old patient appears stated age. Well-nourished, well-developed patient, in mild distress. HEAD: Atraumatic. Normocephalic. EYES: Pupils equal round and reactive. Extraocular motions intact. No scleral icterus. No injection or drainage. ENT: Nose without bleeding, purulent drainage. Throat without erythema, tonsillar hypertrophy or exudate. Airway patent. NECK: Trachea midline. Non tender CARDIOVASCULAR: Regular rate and rhythm without murmurs, gallops, or rubs. RESPIRATORY: Clear to auscultation. Breath sounds equal bilaterally. No wheezes, rales, or rhonchi. GASTROINTESTINAL: Abdomen soft, non-tender, nondistended. EXTREMITIES: There is a mild effusion of the left anterior knee, most notable medially and inferior to the patella, there is tenderness inferior and lateral and medial to the patella, ballottement is negative, there is no heat present, no appreciable erythema or change in color of skin as compared to the right, sensation is intact, distal pulses are 2+ bilaterally, there is no medial joint line tenderness, significant increase in pain with range of motion of flexion at the knee able to flex to 90? however increased pain at approximately 20? of flexion. Katherine's is negative, anterior and posterior drawer are negative, Achilles tendon is intact, tibia and fibula are nontender, ankle has normal range of motion. There is no tenderness of the quadriceps tendon or tibial tuberosity. No other edema or joint tenderness. BACK: Nontender without deformity or crepitance. No flank tenderness. NEURO: AOx3. SKIN: No rash or erythema of visible areas Initial Vital Signs Initial Vital Signs: Vital Signs Temperature 98.0 F 10/16/19 11:15 Pulse Rate 84 10/16/19 11:15 Respiratory Rate 16 10/16/19 11:15 Blood Pressure 127/62 10/16/19 11:15 Pulse Oximetry 100 10/16/19 11:15 <Yaw Johnson MD - Last Filed: 10/17/19 07:35> Initial Vital Signs Initial Vital Signs: Vital Signs Temperature 98.0 F 10/16/19 11:15 Pulse Rate 84 10/16/19 11:15 Respiratory Rate 16 10/16/19 11:15 Blood Pressure 127/62 10/16/19 11:15 Pulse Oximetry 100 10/16/19 11:15 Scores <Emma Bhagat PA-C - Last Filed: 10/16/19 21:38> GCS Nadrei coma scale eye opening: Spontaneous Andrei coma scale verbal response: Orientated [place] coma scale motor response: Obey commands Andrei coma scale total score: 15 Course <Emma Bhagat PA-C - Last Filed: 10/16/19 21:38> Orders Ordered: Discontinued Medications Ketorolac Tromethamine (Toradol) 15 mg IM NOW ONE Stop: 10/16/19 12:37 Last Admin: 10/16/19 12:48 Dose: 15 mg Documented by: TRISTAN Vital Signs Vital signs: Vital Signs - 8 hr 10/16/19 11:15 Temperature 98.0 F Pulse Rate 84 Respiratory Rate 16 Blood Pressure 127/62 Pulse Oximetry 100 <Yaw Johnson MD - Last Filed: 10/17/19 07:35> Orders Ordered: Discontinued Medications Ketorolac Tromethamine (Toradol) 15 mg IM NOW ONE Stop: 10/16/19 12:37 Last Admin: 10/16/19 12:48 Dose: 15 mg Documented by: TRISTAN Vital Signs Vital signs: Vital Signs - 8 hr 10/16/19 11:15 Temperature 98.0 F Pulse Rate 84 Respiratory Rate 16 Blood Pressure 127/62 Pulse Oximetry 100 MDM - Extremity (Nontraumatic) <Emma Bhagat PA-C - Last Filed: 10/16/19 21:38> Lab Data Result diagrams: 10/16/19 12:58 10/16/19 12:58 Labs: Lab Results 10/16/19 10/16/19 Range/Units 12:58 12:58 WBC 7.2 (4.5-11.0) X10^3/uL RBC 3.67 L (4.0-5.2) X10^6/uL Hgb 11.2 L (12.0-16.0) g/dL Hct 32.9 L (36-46) % MCV 89.6 (80-100) fL MCH 30.6 (26-34) PG MCHC 34.1 (30-36) % RDW 12.5 (11.6-14.8) % Plt Count 168 (150-400) X10^3/uL Neut % (Auto) 52.4 (50-75) % Lymph % (Auto) 36.8 (25-40) % [place] % (Auto) 7.2 (3-14) % Eos % (Auto) 2.8 (2-4) % Baso % (Auto) 0.8 (0-2) % Neut # (Auto) 3800 (2589-6445) /uL Lymph # (Auto) 2600 (7241-8127) /uL [place] # (Auto) 500 (0-900) /uL Eos # (Auto) 200 (0-450) /uL Baso # (Auto) 100 (0-100) /uL Sodium 135 L (137-145) mmol/L Potassium 3.9 (3.4-5.1) mmol/L Chloride 107 (98-107) mmol/L Carbon Dioxide 23 (22-32) mmol/L BUN 16 (7-17) mg/dL Creatinine 0.67 (0.52-1.04) mg/dL Estimated GFR > 60.0 (>60) mL/min BUN/Creatinine Ratio 23.9 H (6-22) Glucose 92 (70-100) mg/dL Calcium 9.2 (8.4-10.2) mg/dL Total Bilirubin 0.3 (0.2-1.3) mg/dL AST 20 (14-36) IU/L ALT 17 (<35) IU/L Alkaline Phosphatase 51 (38-126) U/L Total Protein 6.7 (6.3-8.2) g/dL Albumin 3.9 (3.5-5.0) g/dL Globulin 2.8 (1.7-4.1) g/dL Albumin/Globulin Ratio 1.4 (1.0-2.8) Imaging Data Extremity x-ray #1: Attestation: I personally reviewed and interpreted this imaging study as follows: Radiologist's Impression: [address] [place] [id number] XRay Report Signed Patient: Roxana Mir [facility]#: [id number] : 1985Acct:[id number] Age/Sex: 34 / FDate of Service: 10/16/19 Loc: ED Accession Number: [id number] Procedure: XR knee LT 3V Ordering Provider: Emma Bhagat P.A-C PROCEDURE: XR KNEE LT 3V INDICATIONS: knee pain and swelling TECHNIQUE: 3 views of the knee were acquired. COMPARISON: None. FINDINGS: Bones: No fractures or dislocations. No suspicious bony lesions. Soft tissues: No joint effusion. No suspicious soft tissue calcifications. IMPRESSION: No fracture. No acute osseous lesion. If symptoms and/or clinical suspicion for pathology persists, further assessment with repeat radiographs (7-10 days) or advanced imaging (e.g. CT, MRI or bone scan) may be helpful. Dictated by: Tori Arriaga MD, PhD on 10/16/2019 at 11:50 Approved by: Tori Arriaga MD, PhD on 10/16/2019 at 11:50 [facility] Narrative Medical decision making narrative: This is a well-appearing 34-year-old who presents with acute left knee pain that began last night noticed after work that worsened this morning, with some associated swelling around the patella. Differential diagnoses considered were Raman's cyst, DVT, bursitis, sprain, strain, soft tissue injury, fracture. Given the acute onset of her knee pain and some associated swelling, felt it prudent to check basic labs today which were all unremarkable. X-ray was also unremarkable, ultrasound was obtained and did show a effusion present, but no evidence of Raman cyst. And have low suspicion for DVT given she is a nonsmoker and not control, and her symptoms and exam are not consistent with this. She is discharged with a knee brace, plan for orthopedic clinic follow up, advised to see her primary care doctor, and a work note. Emergency return precautions are provided and all questions are answered. <Yaw Johnson MD - Last Filed: 10/17/19 07:35> Lab Data Labs: Lab Results 10/16/19 10/16/19 Range/Units 12:58 12:58 WBC 7.2 (4.5-11.0) X10^3/uL RBC 3.67 L (4.0-5.2) X10^6/uL Hgb 11.2 L (12.0-16.0) g/dL Hct 32.9 L (36-46) % MCV 89.6 (80-100) fL MCH 30.6 (26-34) PG MCHC 34.1 (30-36) % RDW 12.5 (11.6-14.8) % Plt Count 168 (150-400) X10^3/uL Neut % (Auto) 52.4 (50-75) % Lymph % (Auto) 36.8 (25-40) % [place] % (Auto) 7.2 (3-14) % Eos % (Auto) 2.8 (2-4) % Baso % (Auto) 0.8 (0-2) % Neut # (Auto) 3800 (6383-1759) /uL Lymph # (Auto) 2600 (8993-4628) /uL [place] # (Auto) 500 (0-900) /uL Eos # (Auto) 200 (0-450) /uL Baso # (Auto) 100 (0-100) /uL Sodium 135 L (137-145) mmol/L Potassium 3.9 (3.4-5.1) mmol/L Chloride 107 (98-107) mmol/L Carbon Dioxide 23 (22-32) mmol/L BUN 16 (7-17) mg/dL Creatinine 0.67 (0.52-1.04) mg/dL Estimated GFR > 60.0 (>60) mL/min BUN/Creatinine Ratio 23.9 H (6-22) Glucose 92 (70-100) mg/dL Calcium 9.2 (8.4-10.2) mg/dL Total Bilirubin 0.3 (0.2-1.3) mg/dL AST 20 (14-36) IU/L ALT 17 (<35) IU/L Alkaline Phosphatase 51 (38-126) U/L Total Protein 6.7 (6.3-8.2) g/dL Albumin 3.9 (3.5-5.0) g/dL Globulin 2.8 (1.7-4.1) g/dL Albumin/Globulin Ratio 1.4 (1.0-2.8) Discharge Plan Departure Patient Disposition: Home Clinical Impression: Effusion of knee joint, left, Acute pain of left knee Discharge Date/Time: 10/16/19 14:17 Instructions: DI for Knee Pain Activity Restrictions/Additional Instructions: Thank you for letting us be part of your care in the emergency department today. There is no evidence of an emergent or life threatening illness at this time, but follow up with your doctor in 1-2 days is recommended nonetheless to continue to rule out serious underlying causes of your symptoms. Please call the office for an appointment. Please return to the Emergency Department for any worsening or persistent symptoms. You do have an effusion of your right knee which means there is a fluid collection there, the joint itself looks okay, there is an any evidence of a cyst in your knee, I recommend that you wear the knee brace, I am providing you with a work note and I recommend he follow up with Orthopedics, you can use an Miles wrap for gentle compression underneath the knee brace wrapping from lower up to higher on your leg. If you develop any new or concerning symptoms such as fever, chills, nausea, vomiting, increasing swelling in your left knee, increasing pain or any other symptoms of concern to you please do not hesitate to seek medical care or return to the emergency department. I also recommend you see your primary care doctor as needed. Please take Tylenol and ibuprofen alternating as needed for pain. Prescriptions: No Action multivitamin Capsule 1 tab PO DAILY RF: 0 Referrals: Thien Dye MD [Physician] - Stand Alone Forms: Work Release Note <Yaw Johnson MD - Last Filed: 10/17/19 07:35> [facility] I was immediately available in the department for consultation. This documentation has been reviewed and I agree w ith assessment and plan. Supervised by Yaw Johnson MD
[2019-10-16] MEDS: KETOROLAC 60 MG/2 ML VIAL 15 MG IM (12:48)
[2019-10-16 13:28] LABS: Add Manual Diff / Slide Review NO; Basophils Absolute Auto 100 /uL (0-100); Basophils Percent Auto 0.8 % (0-2); Eosinophils Absolute Auto 200 /uL (0-450); Eosinophils Percent Auto 2.8 % (2-4); Hematocrit 32.9 % (36-46); Hemoglobin 11.2 g/dL (12.0-16.0); Lymphocytes Absolute Auto 2600 /uL (1100-4500); Lymphocytes Percent Auto 36.8 % (25-40); Mean Corpuscular HGB Conc 34.1 % (30-36); Mean Corpuscular Hemoglobin 30.6 PG (26-34); Mean Corpuscular Volume 89.6 fL (80-100); Monocytes Absolute Auto 500 /uL (0-900); Monocytes Percent Auto 7.2 % (3-14); Neutrophils Absolute Auto 3800 /uL (1500-7000); Neutrophils Percent Auto 52.4 % (50-75); Platelet Count 168 X10^3/uL (150-400); Red Blood Cell Count 3.67 X10^6/uL (4.0-5.2); Red Cell Distribution Width 12.5 % (11.6-14.8); White Blood Cell Count 7.2 X10^3/uL (4.5-11.0)
[2019-10-16 13:44] LABS: Alanine Aminotransferase 17 IU/L (<35); Albumin 3.9 g/dL (3.5-5.0); Albumin Globulin Ratio 1.4 (1.0-2.8); Alkaline Phosphatase 51 U/L (38-126); Aspartate Aminotransferase 20 IU/L (14-36); BUN Creatinine Ratio 23.9 (6-22); Bilirubin Total 0.3 mg/dL (0.2-1.3); Blood Urea Nitrogen 16 mg/dL (7-17); Calcium 9.2 mg/dL (8.4-10.2); Carbon Dioxide 23 mmol/L (22-32); Chloride 107 mmol/L (98-107); Estimated Glomerular Filt Rate > 60.0 mL/min (>60); Globulin 2.8 g/dL (1.7-4.1); Glucose 92 mg/dL (70-100); HEMOLYSIS < 15 (0-50); Potassium 3.9 mmol/L (3.4-5.1); Sodium 135 mmol/L (137-145); Total Protein 6.7 g/dL (6.3-8.2)
== END 2019-10-16 14:17 | disposition home or self-care (01) ==
PROVIDERS: Emergency Provider Student in an Organized Health Care Education/Training Program
DX: M25.462 Effusion, left knee (principal); M25.562 Pain in left knee
CPT/HCPCS: 36415; 73562; 76882; 80053; 85025; 96372; 99284; J1885

== ENCOUNTER 2020-01-22 17:32 | Emergency (ER) | payer OTHER, SELFPAY ==
[2018-07-30 13:29] VITALS: BMI 20.3
[2020-01-22 18:19] VITALS: BP 139/97; PULSE 72; RESP 18; TEMP 36.9; O2SAT 100; BMI 21.2
[2020-01-22 18:47] LABS: COVID19 -Nasal RAPID Negative (Negative)
--- NOTE | 2020-01-22 19:51 | ED.URI ---
HPI - URI/Sore Throat <CINDY John - Last Filed: 01/22/20 20:01> General Chief Complaint: Upper Respiratory Symptoms Stated Complaint: states had Covid outbreak at work Time Seen by Provider: 01/22/20 19:41 Source: patient Mode of arrival: Ambulatory Limitations: no limitations History of Present Illness HPI Narrative: The patient is a 34-year-old female former smoker who denies pertinent medical history presents with a chief complaint of needing COVID testing related to a COVID outbreak at work. She states that she was notified today by the [facility] for her area that a co-worker tested positive. She states that she was around this co-worker last week for several days and that she had a cough, transient nausea after eating to [employer]. The she had some congestion last week, but thought it was allergies. Since she found out about the positive test she is now concerned about coronavirus. She denies any current cough, chest pain, shortness of breaths muscle aches or chills. She states that she called her primary care provider's office who referred her to the emergency department. Related Data Home Medications Medication Instructions Recorded Confirmed multivitamin 1 tab PO DAILY 12/29/17 12/04/19 Allergies Allergy/AdvReac Type Severity Reaction Status Date / Time No Known Drug Allergies Allergy Verified 12/04/19 10:32 Review of Systems <CINDY John - Last Filed: 01/22/20 20:01> Review of Systems Narrative: GENERAL: Denies chills, fatigue, malaise, fever, sweats. HEENT: Denies sinus pain, ear pain, sore throat, difficulty swallowing, dizziness. RESPIRATORY: See HPI CARDIOVASCULAR: Denies chest pain, palpitations, orthopnea, edema, GASTROINTESTINAL: Denies nausea, vomiting, abdominal pain, diarrhea, constipation, melena. : Denies dysuria, frequency, incontinence, hematuria, urinary retention. MUSCULOSKELETAL: denies weakness, joint pain, or bony pain SKIN: Denies rash, skin lesions, or other NEUROLOGIC: Denies weakness, headache, numbness, change in speech, confusion, seizures, incoordination. PSYCHIATRIC: No concerning psychosocial issues. 12 point review of systems is negative except for those stated above Patient History <CINDY John - Last Filed: 01/22/20 20:01> Medical History Anemia (Acute) Irregular menstrual cycle (Chronic ~2006) Ovarian cyst (Chronic ~2004) Painful menstrual periods (Chronic ~2009) Well adult (Acute) Surgical History Anesthesia (Resolved) History of delivery (Resolved) History of laparoscopy (Resolved) History of left oophorectomy (Resolved ~2012) History of tubal ligation (Resolved) S/P abdominal hysterectomy (Resolved 06/25/18) S/P laparoscopy (Resolved 07/01/18) Family History Father Stroke Mother Hypertension Sister Hypertension Grandfather Cancer Hypertension Grandmother Hyperlipidemia Hypertension Social History household members: spouse Smoking Status: Former smoker alcohol intake: current substance use type: does not use Smoking Status: Former smoker alcohol intake frequency: 0-2 drinks per day Substance Use Type: does not use Exam <CINDY John - Last Filed: 01/22/20 20:01> Narrative Exam Narrative: GENERAL: This is a well-nourished, well-developed patient, in no acute distress HEAD: Atraumatic. Normocephalic. No temporal or scalp tenderness. EYES: Pupils equal round and reactive. Extraocular motions intact. No scleral icterus. No injection or drainage. ENT: Nose without bleeding, purulent drainage or septal hematoma. Who wearing a mask Airway patent. NECK: Trachea midline. No JVD or lymphadenopathy. Supple, nontender, no meningeal signs. CARDIOVASCULAR: Regular rate and rhythm RESPIRATORY: Clear to auscultation. Breath sounds equal bilaterally. No wheezes, rales, or rhonchi. No cough. No increased respiratory effort. No accessory muscle use. GASTROINTESTINAL: Abdomen soft, non-tender, nondistended. No hepato-splenomegaly, or palpable masses. No guarding. Active bowel sounds all 4 quadrants EXTREMITIES: No clubbing, cyanosis, or edema. No joint tenderness, effusion, or edema noted. BACK: Nontender without deformity or crepitance. No flank tenderness. NEURO: AOx3. SKIN: No rash or erythema on visible skin Initial Vital Signs Initial Vital Signs: Vital Signs Temperature 98.4 F 01/22/20 18:19 Pulse Rate 72 01/22/20 18:19 Respiratory Rate 18 01/22/20 18:19 Blood Pressure 139/97 H 01/22/20 18:19 Pulse Oximetry 100 01/22/20 18:19 <Wayne Chauhan MD - Last Filed: 01/23/20 08:11> Initial Vital Signs Initial Vital Signs: Vital Signs Temperature 98.4 F 01/22/20 18:19 Pulse Rate 72 01/22/20 18:19 Respiratory Rate 18 01/22/20 18:19 Blood Pressure 139/97 H 01/22/20 18:19 Pulse Oximetry 100 01/22/20 18:19 Scores <CINDY John - Last Filed: 01/22/20 20:01> GCS [place] coma scale eye opening: Spontaneous [place] coma scale verbal response: Orientated [place] coma scale motor response: Obey commands [place] coma scale total score: 15 Course <CINDY John - Last Filed: 01/22/20 20:01> Orders Ordered: ED Orders 01/22/20 18:20 COVID19 -ED/INPAT/OR/L&D Stat Vital Signs Vital signs: Vital Signs - 8 hr 01/22/20 18:19 Temperature 98.4 F Pulse Rate 72 Respiratory Rate 18 Blood Pressure 139/97 H Pulse Oximetry 100 <Wayne Chauhan MD - Last Filed: 01/23/20 08:11> Orders Ordered: ED Orders 01/22/20 18:20 COVID19 -ED/INPAT/OR/L&D Stat Vital Signs Vital signs: Vital Signs - 8 hr 01/22/20 18:19 Temperature 98.4 F Pulse Rate 72 Respiratory Rate 18 Blood Pressure 139/97 H Pulse Oximetry 100 MDM - URI/Sore Throat <CINDY John - Last Filed: 01/22/20 20:01> Lab Data Labs: Lab Results 01/22/20 Range/Units 18:20 COVID-19 PCR Negative (Negative) MDM Narrative Medical decision making narrative: The patient is a 34-year-old female who presents with a chief complaint of a concern of coronavirus exposure at work. She does negative for coronavirus today and denies any symptoms. I discussed at length follow up with primary care provider, continued hand hygiene, wearing a mask, monitoring for any symptoms. Discussed the possibility of false negatives as well as a test resulting negative due to being tested early in the disease process. Encouraged retesting if needed at any point. Discussed coming back to ER for acute concerns such as chest pain, shortness of breath etcetera. Patient has no questions or concerns upon discharge and states understanding return precautions as well as follow-up care. She appears well and nontoxic in the emergency department. She is hemodynamically stable, oxygenating well. <Wayne Chauhan MD - Last Filed: 01/23/20 08:11> Lab Data Labs: Lab Results 01/22/20 Range/Units 18:20 COVID-19 PCR Negative (Negative) Discharge Plan Departure Patient Disposition: Home Clinical Impression: Exposure to COVID-19 virus Discharge Date/Time: 01/22/20 19:58 Instructions: DI for COVID-19 (Suspected or Confirmed ), Coronavirus Disease 2019, Can COVID-19 be prevented? Activity Restrictions/Additional Instructions: Thank you for trusting us with your care today. As discussed, your coronavirus test resulted negative. Please follow-up with primary care provider in the next few days. As discussed please continue hand hygiene, using masks etcetera. Please monitor for any symptoms. Please come back to emergency department for any acute concerns such as heart attack, stroke, shortness of breath etcetera Prescriptions: No Action multivitamin Capsule 1 tab PO DAILY RF: 0 Referrals: Jay Luo DO [Primary Care Provider] -
== END 2020-01-22 19:58 | disposition home or self-care (01) ==
PROVIDERS: Emergency Medicine; Emergency Provider Nurse Practitioner Family; PCP Family Medicine
DX: Z03.818 Encounter for observation for suspected exposure to other biological agents ruled out (principal)
CPT/HCPCS: 87635; 99281; 99282

== ENCOUNTER → 2020-10-30 08:40 | Outpatient (CLI) | payer OTHER, SELFPAY ==
[2018-07-30 13:29] VITALS: BMI 20.3
--- NOTE | 2020-10-30 08:42 | DI.US.S_ITS ---
ULTRASOUND OF LEFT BREAST AND AXILLA: 10/30/2020 CLINICAL: Focal left breast pain. Comparison is made to exam dated: 10/30/2020 [facility]. Color flow and real-time ultrasound of the left breast axilla were performed. Watson scale images of the real-time examination were reviewed. There is a 1.3 cm x 0.6 cm x 1 cm oval cyst with thin septated internal mistry in the left breast at 7 o'clock middle depth 2 cm from the nipple. This oval cyst is hypoechoic with internal echoes. This is an incidental finding. Color flow imaging demonstrates that there is no vascularity present. There also is a 0.9 cm x 0.4 cm x 0.7 cm oval cyst with septated internal mistry in the left breast at 8 o'clock middle depth 2 cm from the nipple. This oval cyst is hypoechoic with no posterior acoustic shadowing or enhancement. This is an incidental finding. Color flow imaging demonstrates that there is no vascularity present. Additionally, there is a 1.2 cm x 0.6 cm x 1.1 cm oval cyst in the left breast at 5:30 o'clock anterior depth 1 cm from the nipple. This oval cyst is anechoic. This correlates as palpated, to the reported pain, and with area of clinical concern. Color flow imaging demonstrates that there is no vascularity present. No significant abnormalities were seen sonographically in the left axilla. IMPRESSION: PROBABLY BENIGN The 1.3 cm x 0.6 cm x 1 cm oval cyst in the left breast at 7 o'clock middle depth is consistent with a complicated cyst or cluster of cysts and is probably benign. The 0.9 cm x 0.4 cm x 0.7 cm oval cyst in the left breast at 8 o'clock middle depth resembles a complicated cyst or a cluster of cysts and is probably benign. The 1.2 cm x 0.6 cm x 1.1 cm oval simple cyst in the left breast at 5:30 o'clock anterior depth is benign. A follow-up left mammogram and a left ultrasound in 6 months is recommended to demonstrate stability. Recommend clinical follow up for persistent or worsening symptoms, or development of any clinically suspicious findings. Findings and recommendations were conveyed to the patient during today's evaluation. This exam was interpreted at Station ID: [id number]. Electronically Signed By: Richardson Brown M.D. at/:10/30/2020 11:50:48 letter sent: Clinical Evaluation Ultrasound BI-RADS: 3 Probably benign
--- NOTE | 2020-10-30 08:42 | DI.MG.S_ITS ---
BILATERAL DIGITAL DIAGNOSTIC MAMMOGRAM 3D/2D: 10/30/2020 CLINICAL: Left breast pain. Baseline exam. No prior exams were available for comparison. The tissue of both breasts is extremely dense, which lowers the sensitivity of mammography. No significant masses, calcifications, or other findings are seen in either breast. IMPRESSION: INCOMPLETE: NEEDS ADDITIONAL IMAGING EVALUATION There is no abnormality seen in the left breast to correspond with the area of clinical concern, palpable abnormality, and focal pain indicated by square marker in the anterior-middle depth inferior aspect of the breast, however, an ultrasound is recommended for further evaluation and is scheduled to immediately follow this examination. This exam was interpreted at Station ID: [id number]. NOTE: For mammograms, a report in lay terms will be sent to the patient. Approximately 15% of breast malignancies will not be visualized mammographically. In the management of a palpable breast mass, a negative mammogram must not discourage biopsy of a clinically suspicious lesion. Electronically Signed By: Richardson Brown M.D. aty/:10/30/2020 09:26:41 ACR BI-RADS Category 0: Incomplete [id number]
== END ==
PROVIDERS: PCP Family Medicine; Referring Provider Family Medicine; Visit Provider Family Medicine
DX: N60.02 Solitary cyst of left breast (principal); R92.2 Inconclusive mammogram; N64.4 Mastodynia
CPT/HCPCS: 76642; 77066; G0279